=== PATIENT | female | born 1965 | race Caucasian/White ===

== ENCOUNTER 2023-08-17 13:09 | Inpatient (IN) | payer MEDICARE, MEDICAID, SELFPAY ==
--- NOTE | ~2023-08-17 | US_ITS ---
EXAMINATION: US ABDOMEN LIMITED CLINICAL INFORMATION: Increased abdominal distention. Assess for ascites. COMPARISON: None available. TECHNIQUE: Real-time imaging of the abdomen to assess for ascites. FINDINGS: Small volume of abdominal ascites seen more so on the midline pelvis. US/US abdomen limited IMPRESSION: Small volume ascites
--- NOTE | ~2023-08-17 | CT_ITS ---
EXAMINATION: CT ABDOMEN AND PELVIS WITHOUT CONTRAST CLINICAL INFORMATION: Pain COMPARISON: None available. TECHNIQUE: Multidetector volumetric imaging was performed from the superior aspect of the liver through the pubic symphysis. Sagittal and coronal reformatted images were obtained on the technologist's workstation. This CT examination was performed using dose optimization techniques as appropriate, variously including the following: *Automated exposure control *Adjustment of mA and/or kV according to patient size (this includes techniques or standardized protocols for targeted exams where dose is matched to indication/reason for exam; i.e. extremities or head) *Use of iterative reconstruction technique DLP: 398 mGy-cm FINDINGS: LUNG BASES: The visualized lung bases are unremarkable. LIVER, GALLBLADDER, AND BILIARY TREE: Enlarged fatty liver. No focal liver lesion. Normal-appearing gallbladder. No intrahepatic biliary duct dilatation. The common bile duct is dilated measuring 1.2 cm. No stone seen by CT. PANCREAS: Unremarkable. SPLEEN: Unremarkable. ADRENAL GLANDS: Unremarkable. KIDNEYS AND URETERS: The kidneys are normal in size, shape, and attenuation. No hydronephrosis, hydroureter, or calculi seen. No perinephric stranding. BLADDER: Not optimally distended. GASTROINTESTINAL TRACT: Postsurgical changes to the distal colon with surgical staple line. The small and large bowel are otherwise unremarkable. The appendix is not seen. No ascites or free air. Normal stomach. ABDOMINAL WALL: Postsurgical changes. LYMPH NODES: Normal. VASCULAR: Unremarkable. PELVIC VISCERA: The uterus has been removed. No pelvic mass. OSSEOUS STRUCTURES: Postsurgical changes to the lower lumbar spine. CT/CT abdomen pelvis wo IV con IMPRESSION: Fatty liver. Normal-appearing gallbladder. Dilated common bile duct measuring 1.2 cm. No gallstone or common bile duct stone seen by CT. Follow-up ultrasound as initial evaluation recommended. Fleischner guidelines were followed.
--- NOTE | ~2023-08-17 | US_ITS ---
EXAMINATION: US RETROPERITONEAL LIMITED (RENAL ONLY) US RENAL DOPPLER CLINICAL INFORMATION: Worsening creatinine. Flank pain. Hypertension.. COMPARISON: CT scan of the abdomen and pelvis dated 08/17/2023. TECHNIQUE: Bilateral renal ultrasound was performed with color Doppler and spectral Doppler assessment of the renal vessels. FINDINGS: RIGHT KIDNEY: 11.5 x 5.1 x 7.3 cm (SAG x AP x TRV). The kidney is normal in size, contour, and echogenicity. Renal cortical thickness is normal. Prominence of the renal pyramids is seen. No calculi or focal parenchymal lesions. No hydronephrosis. Trace perinephric edema noted. With color Doppler imaging and spectral Doppler assessment, patency of the right renal artery and vein is seen. Peak systolic velocities in the right renal artery range between 65.1 cm/s and 50.4 cm/s with normal low resistance flow pattern seen. Resistive indices within segmental upper, mid and lower pole renal arteries range between 0.66 and 0.76. LEFT KIDNEY: 10.8 x 6.3 x 6.2 cm (SAG x AP x TRV). The kidney is normal in size, contour, and echogenicity. Renal cortical thickness is normal. Slight prominence of the renal pyramids is seen. No calculi or focal parenchymal lesions. No hydronephrosis. Trace perinephric edema noted. With color Doppler imaging and spectral Doppler assessment, patency of the left renal artery and vein is seen. Peak systolic velocities in the left renal artery range between 50.1 cm/s and 54.0 cm/s. Normal low resistance flow pattern seen. Resistive indices within segmental upper, mid and lower pole arteries range between 0.67 and 0.78. AORTA: Normal in caliber. In the mid aorta, peak systolic velocities of 89 cm/s are obtained. US/US renal BI IMPRESSION: * No evidence of renal artery stenosis seen. * Bilateral kidneys normal in size and echogenicity with no evidence of hydronephrosis. * Trace bilateral perinephric edema is seen.
--- NOTE | ~2023-08-17 | XR_ITS ---
EXAMINATION: XR CHEST CLINICAL INFORMATION: Shortness of breath COMPARISON: None available. TECHNIQUE: Frontal view of the chest was obtained. FINDINGS: No significant abnormality is noted involving the heart, lungs, mediastinum, bony thorax or soft tissues. XR/XR chest 1V IMPRESSION: Unremarkable examination.
--- NOTE | ~2023-08-17 | MR_ITS ---
EXAMINATION: MR ABDOMEN WITHOUT CONTRAST/MRCP CLINICAL INFORMATION: Liver failure. Dilated common bile duct. COMPARISON: CT scan of the abdomen and pelvis dated 08/17/2023. TECHNIQUE: An MRI scan of the abdomen was performed using multiple imaging sequences and imaging planes. As per the MRCP protocol, heavily T2-weighted 3-D high-resolution MRCP sequences were obtained in the coronal plane along with thin and thick slab coronal images and coronal MIP reconstructions obtained on the technologist workstation under concurrent physician supervision. FINDINGS: LIVER: The liver is mildly enlarged, measuring 19 cm longitudinally. No hepatic steatosis is seen. No focal cystic or solid mass is present. GALLBLADDER/BILIARY TREE: The gallbladder is well distended and appears unremarkable. There is mild intrahepatic ductal dilatation and prominent extrahepatic ductal dilatation. Common hepatic duct measures 1.3 cm in diameter. Proximal common bile duct measures 1.3 cm and tapers smoothly to 0.7 cm in the ampullary region without obstructing stone or mass seen. PANCREAS: The pancreas is normal in appearance. The pancreatic duct is at the upper limits of normal, measuring 0.3 cm in maximal diameter. No significant mass on noncontrast enhanced exam. No surrounding stranding/edema is seen. SPLEEN: Normal size and appearance. Splenic vein patent. ADRENAL GLANDS AND KIDNEYS: Adrenal glands normal. Kidneys bilaterally symmetric in size and function. No focal mass or hydronephrosis. Mild perinephric edema, nonspecific. BOWEL LOOPS: Grossly within normal limits. ABDOMINAL WALL: Micrometallic artifact related to abdominal wall sutures noted in the midline. LYMPHOVASCULAR STRUCTURES: Abdominal aorta normal in caliber. No periaortic collections. No abdominal adenopathy or free fluid collection. BONES: Fusion hardware at the L3-L4 level is seen with resultant dephasing artifact, which obscures assessment. MR/MR MRCP IMPRESSION: * Mild intrahepatic and moderate extrahepatic ductal dilatation is seen without evidence of an obstructing stone or mass. The pancreatic duct is at the upper limits of normal in diameter. * Mild hepatomegaly. * Mild perinephric edema, nonspecific.
--- NOTE | ~2023-08-17 | US_ITS ---
EXAMINATION: US RETROPERITONEAL LIMITED (RENAL ONLY) US RENAL DOPPLER CLINICAL INFORMATION: Worsening creatinine. Flank pain. Hypertension.. COMPARISON: CT scan of the abdomen and pelvis dated 08/17/2023. TECHNIQUE: Bilateral renal ultrasound was performed with color Doppler and spectral Doppler assessment of the renal vessels. FINDINGS: RIGHT KIDNEY: 11.5 x 5.1 x 7.3 cm (SAG x AP x TRV). The kidney is normal in size, contour, and echogenicity. Renal cortical thickness is normal. Prominence of the renal pyramids is seen. No calculi or focal parenchymal lesions. No hydronephrosis. Trace perinephric edema noted. With color Doppler imaging and spectral Doppler assessment, patency of the right renal artery and vein is seen. Peak systolic velocities in the right renal artery range between 65.1 cm/s and 50.4 cm/s with normal low resistance flow pattern seen. Resistive indices within segmental upper, mid and lower pole renal arteries range between 0.66 and 0.76. LEFT KIDNEY: 10.8 x 6.3 x 6.2 cm (SAG x AP x TRV). The kidney is normal in size, contour, and echogenicity. Renal cortical thickness is normal. Slight prominence of the renal pyramids is seen. No calculi or focal parenchymal lesions. No hydronephrosis. Trace perinephric edema noted. With color Doppler imaging and spectral Doppler assessment, patency of the left renal artery and vein is seen. Peak systolic velocities in the left renal artery range between 50.1 cm/s and 54.0 cm/s. Normal low resistance flow pattern seen. Resistive indices within segmental upper, mid and lower pole arteries range between 0.67 and 0.78. AORTA: Normal in caliber. In the mid aorta, peak systolic velocities of 89 cm/s are obtained. US/US renal doppler IMPRESSION: * No evidence of renal artery stenosis seen. * Bilateral kidneys normal in size and echogenicity with no evidence of hydronephrosis. * Trace bilateral perinephric edema is seen.
[2023-08-17 13:58] VITALS: BP 161/107; PULSE 90; RESP 16; TEMP 36.6; O2SAT 97; BMI 20.2
--- NOTE | 2023-08-17 13:58 | ED.ABDPAIN ---
HPI - Abdominal Pain General Chief Complaint: General Medical Stated Complaint: upper abd pain, headaches Time Seen by Provider: 08/17/23 16:39 Source: patient, RN notes reviewed and old records reviewed Mode of arrival: ambulatory Limitations: no limitations History of Present Illness HPI narrative: 58-year-old female presents for evaluation abdominal pain. She reports she has had abdominal pain on and off for the last 3 days. She is nausea and vomiting as well. She complains of shortness of breath with inspiration. She reports her doctor started her on Crestor in May for high cholesterol She reports some difficulty urinating She reports vomiting over last couple of days as well but does not feel it was excessive Denies any fevers or chills Related Data Allergies Allergy/AdvReac Type Severity Reaction Status Date / Time morphine AdvReac Itching Verified 08/17/23 14:02 Review of Systems Constitutional: Reports body ache(s), Reports chills, Denies fever(s), Reports malaise and Reports weakness Eyes: Denies blurry vision Cardiovascular: Denies chest pain and Denies dyspnea Respiratory: Denies cough and Denies dyspnea Gastrointestinal: Reports abdominal pain, Reports nausea and Reports vomiting Genitourinary: Reports dysuria Musculoskeletal: Reports back pain Skin/Breast: Denies rash Reports weakness PMFSH Social History Social History Smoked in Last 30 Days: No Advance Directives: No Advance Directives Information Provided: No Physical Exam ED Vital Signs: Vital Signs - 24 hr 08/17/23 13:58 08/17/23 16:00 08/17/23 17:55 Temperature 97.8 F 98.3 F 98.0 F Pulse Rate 90 66 72 Respiratory Rate 16 18 18 Blood Pressure 161/107 H 169/100 H 169/129 H Pulse Oximetry 97 100 100 Oxygen Delivery Method Room Air Room Air Room Air BMI result Body Mass Index 20.2 Const General: healthy appearing, comfortable, no acute distress, alert and awake Nutritional Appearance: well nourished Orientation/consciousness: patient oriented x3 HENMT Head: Yes normocephalic and Yes atraumatic Eyes Eyelids: Yes eyelids normal Conjunctivae: conjunctivae normal Sclerae: sclerae normal Corneas: corneas normal Pupils: Equal, round and reactive pupils present EOM: EOMs intact bilaterally Neck Neck: Yes full ROM Resp Effort & Inspection: normal respiratory effort, able to speak in complete sentences and not labored GI Inspection: No distended Palpation (GI): Soft to palpation, not firm, nontender, no guarding and not rigid Skin General skin exam: elasticity normal Neuro General: patient oriented x3 Cranial nerves: Yes Equal, round and reactive pupils present and Yes Bilaterally intact EOM present Cognition (Neuro): normal cognition Extrem Other: Moving all extremities well without any obvious deformities Course Course Course Narrative: RME: 58 year-old F w/ PMHx HLD presenting to the ED c/o SOB & upper abdominal pain radiating to back since Saturday. States feels like she cannot take a deep breath. States her cholesterol was very elevated on outpatient labs. Also reports HTN at home. (PCP is with [facility]) HTNsive in triage EKG, Labs, Viral studies, CXR, UA ordered Full HPI, ROS and PE to be performed by primary ED provider. Medical Decision Making Medical Decision Making [facility] Narrative: 58 old female presents for evaluation of multiple complaints. Her labs are significant for a creatinine of 4.14 which is apparently acute for the patient. She has no history renal issues. She is also found to have a significant transaminitis with an AST of 2881, ALT of 522 and alk phos of 259. The patient's CK was slightly elevated to 166 over not indicative of rhabdomyolysis. Patient's sodium is 130, chloride 95 and CO2 of 20. This is possibly related to acute viral hepatitis or substance abuse. I discussed with Dr. Murphy HECTOR who recommends hepatitis panel and significant IV hydration. CT scan the abdomen pelvis does not show any evidence of obstructive pathology. Neither urinary obstruction or biliary obstruction. The patient is stable bilirubin is normal at 0.7 Differential Diagnosis Differential Diagnoses: The differential diagnosis associated with the presentation includes Viral hepatitis Tylenol overdose Substance abuse Acute renal failure Obstructive uropathy Biliary obstruction Admission/Observation Consideration of admission/observation: Escalation of care including admission/observation considered Patient requires admission for both acute renal failure and elevated liver enzymes Consult Healthcare Provider Management of the patient was discussed with: [employer] Operator (Dr. Arrington, KRUNAL) Lab Data [facility] Lab Attestation statement: I reviewed the patient's lab results. See above 08/17/23 14:20 08/17/23 14:20 Labs: Lab Results 08/17/23 08/17/23 08/17/23 Range/Units 14:20 16:34 17:03 WBC 3.1 L (4.8-10.8) X10*3/uL RBC 3.81 L (4.20-5.50) X10*6/uL Hgb 12.2 (12.0-16.0) g/dl Hct 33.8 L (37.0-47.0) % MCV 88.7 (80.0-98.0) fL MCH 32.0 (27.0-33.0) pg MCHC 36.1 H (31.0-35.0) g/dl RDW 12.7 (11.0-16.0) % Plt Count 153 L (160-400) X10*3/uL MPV 10.3 (9.4-12.3) fL Immature Gran % (Auto) 0.6 H (0.0-0.4) % Neut % (Auto) 66.0 (45-73) % Lymph % (Auto) 22.0 (20-40) % [place] % (Auto) 7.3 (2-11) % Eos % (Auto) 3.5 (0-4) % Baso % (Auto) 0.6 (0-2) % Lymph # (Auto) 0.7 L (1.2-4.9) X10*3/uL [place] # (Auto) 0.2 (0.1-1.2) X10*3/uL Eos # (Auto) 0.1 (0.0-0.4) X10*3/uL Baso # (Auto) 0.0 (0.0-0.2) X10*3/uL Abs Immat Gran (auto) 0.02 (0.00-0.03) X10*3/uL Absolute Neuts (auto) 2.1 (2.0-8.3) x10*3/uL Absolute Nucleated RBC 0.020 H (0.0-0.012) X10*3/uL Nucleated RBC % (auto) 0.6 H (0.0-0.2) /100WBC PT 11.4 (11.1-13.3) SEC INR 0.9 (0.9-1.1) VBG pH 7.30 L (7.32-7.43) VBG pCO2 30 mmHg VBG pO2 35 mmHg VBG HCO3 15 L (22-26) mmol/L VBG O2 Saturation 60.0 % VBG Base Excess -10.0 mmol/L Sodium 130 L (135-145) mmol/L Potassium 4.5 (3.3-5.1) mmol/L Chloride 95 L (96-108) mmol/L Carbon Dioxide 20 L (22-29) mmol/L Anion Gap 20 (12-20) BUN 38 H (9-16) mg/dL Creatinine 4.14 H* (0.5-1.4) mg/dL Estim Creat Clear Calc 13.5 Estimated GFR 11 Random Glucose 90 (60-115) mg/dL Calcium 9.2 (8.4-10.2) mg/dL Magnesium 2.1 (1.6-2.6) mg/dL Total Bilirubin 0.7 (0.0-1.0) mg/dL Direct Bilirubin 0.5 (0.0-0.5) mg/dL AST 2881 H (5-31) U/L ALT 522 H (0-31) U/L Alkaline Phosphatase 259 H (39-117) U/L Total Creatine Kinase 166 H (26-140) U/L Troponin I High Sens 3.7 (<3.5-17.0) ng/L B-Natriuretic Peptide 84 (<100) pg/mL Total Protein 6.7 (6.5-8.0) g/dL Albumin 3.9 (3.5-5.0) g/dL Lipase 53 (8-78) U/L Urine Color Dark Yellow Urine Appearance Turbid Urine pH 5.5 (5.0-9.0) Ur Specific [place] 1.015 (1.005-1.025) Urine Protein 300 (3+) H (Neg-Trace) mg/dL Urine Glucose (UA) 250 H (Negative) mg/dL Urine Ketones Negative (Negative) mg/dL Urine Blood Trace H (Negative) Urine Nitrite Negative (Negative) Ur Leukocyte Esterase Trace H (Negative) Urine RBC 3-5 H (0-2) /HPF Urine WBC 21-50 H (0-5) /HPF Ur Squamous Epith Cells >20 (0-2) /HPF Urine Bacteria 4+ (None Seen) Hyaline Casts 3-5 (0-2) /LPF Acetaminophen (<30) mcg/mL Ethyl Alcohol mg/dL COVID-19 (KAREN) Negative (Negative) COVID-19 Clin Com See Note Influenza Type A (KAYLEE) Negative (Negative) Influenza Type B (KAYLEE) Negative (Negative) Influenza A & B Note See Note 08/17/23 08/17/23 Range/Units 18:35 18:38 WBC (4.8-10.8) X10*3/uL RBC (4.20-5.50) X10*6/uL Hgb (12.0-16.0) g/dl Hct (37.0-47.0) % MCV (80.0-98.0) fL MCH (27.0-33.0) pg MCHC (31.0-35.0) g/dl RDW (11.0-16.0) % Plt Count (160-400) X10*3/uL MPV (9.4-12.3) fL Immature Gran % (Auto) (0.0-0.4) % Neut % (Auto) (45-73) % Lymph % (Auto) (20-40) % [place] % (Auto) (2-11) % Eos % (Auto) (0-4) % Baso % (Auto) (0-2) % Lymph # (Auto) (1.2-4.9) X10*3/uL [place] # (Auto) (0.1-1.2) X10*3/uL Eos # (Auto) (0.0-0.4) X10*3/uL Baso # (Auto) (0.0-0.2) X10*3/uL Abs Immat Gran (auto) (0.00-0.03) X10*3/uL Absolute Neuts (auto) (2.0-8.3) x10*3/uL Absolute Nucleated RBC (0.0-0.012) X10*3/uL Nucleated RBC % (auto) (0.0-0.2) /100WBC PT (11.1-13.3) SEC INR (0.9-1.1) VBG pH (7.32-7.43) VBG pCO2 mmHg VBG pO2 mmHg VBG HCO3 (22-26) mmol/L VBG O2 Saturation % VBG Base Excess mmol/L Sodium (135-145) mmol/L Potassium (3.3-5.1) mmol/L Chloride (96-108) mmol/L Carbon Dioxide (22-29) mmol/L Anion Gap (12-20) BUN (9-16) mg/dL Creatinine (0.5-1.4) mg/dL Estim Creat Clear Calc Estimated GFR Random Glucose (60-115) mg/dL Calcium (8.4-10.2) mg/dL Magnesium (1.6-2.6) mg/dL Total Bilirubin (0.0-1.0) mg/dL Direct Bilirubin (0.0-0.5) mg/dL AST (5-31) U/L ALT (0-31) U/L Alkaline Phosphatase (39-117) U/L Total Creatine Kinase (26-140) U/L Troponin I High Sens (<3.5-17.0) ng/L B-Natriuretic Peptide (<100) pg/mL Total Protein (6.5-8.0) g/dL Albumin (3.5-5.0) g/dL Lipase (8-78) U/L Urine Color Urine Appearance Urine pH (5.0-9.0) Ur Specific [place] (1.005-1.025) Urine Protein (Neg-Trace) mg/dL Urine Glucose (UA) (Negative) mg/dL Urine Ketones (Negative) mg/dL Urine Blood (Negative) Urine Nitrite (Negative) Ur Leukocyte Esterase (Negative) Urine RBC (0-2) /HPF Urine WBC (0-5) /HPF Ur Squamous Epith Cells (0-2) /HPF Urine Bacteria (None Seen) Hyaline Casts (0-2) /LPF Acetaminophen < 3 (<30) mcg/mL Ethyl Alcohol < 10 mg/dL COVID-19 (KAREN) (Negative) COVID-19 Clin Com Influenza Type A (KAYLEE) (Negative) Influenza Type B (KAYLEE) (Negative) Influenza A & B Note Radiology Impression Discussion of test interpretation with radiology: I have reviewed the radiologist's reading. (Fatty liver, normal-appearing gallbladder. Dilated common bile duct. The patient reports that this is chronic) Medications Administered Discontinued Medications Generic Name Dose Route Start Last Admin Trade Name Freq PRN Reason Stop Dose Admin Diphenhydramine HCl 12.5 mg 08/17/23 17:44 08/17/23 17:59 Diphenhydramine Hcl 50 Mg/Ml Vial IVPUSH 08/17/23 17:45 12.5 mg ONCE ONE Administration Sodium Chloride 1,000 mls @ 999 mls/hr 08/17/23 16:45 08/17/23 18:03 Ns IV 08/17/23 17:45 Infused .Q1H1M SERGIO Infusion Sodium Chloride 1,000 mls @ 999 mls/hr 08/17/23 17:45 08/17/23 17:59 Ns IV 08/17/23 18:45 999 mls/hr .Q1H1M SERGIO Administration Metoclopramide HCl 10 mg 08/17/23 17:44 08/17/23 17:59 Metoclopramide Hcl 10 Mg/2 Ml Vial IVPUSH 08/17/23 17:45 10 mg ONCE ONE Administration Discharge Plan Discharge Clinical Impression: Acute renal failure, Transaminitis
--- NOTE | 2023-08-17 13:59 | ECG_ITS ---
Test Reason : UPPER ABD PAIN Blood Pressure : / mmHG Vent. Rate : 074 BPM Atrial Rate : 074 BPM P-R Int : 112 ms QRS Dur : 078 ms QT Int : 408 ms P-R-T Axes : 076 016 031 degrees QTc Int : 452 ms Normal sinus rhythm Normal ECG No previous ECGs available Referred By: Tiffanie Torrez Electronically Signed By:Warren Anglin
[2023-08-17 14:27] LABS: MANUAL DIFF FLAG NO
[2023-08-17 14:29] LABS: Basophils Percent Auto 0.6 % (0-2); Eosinophils Absolute Auto 0.1 X10*3/uL (0.0-0.4); Eosinophils Percent Auto 3.5 % (0-4); Hematocrit 33.8 % (37.0-47.0); Hemoglobin 12.2 g/dl (12.0-16.0); Imm Gran Abs Auto 0.02 X10*3/uL (0.00-0.03); Imm Gran Pct Auto 0.6 % (0.0-0.4); Lymphocytes Absolute Auto 0.7 X10*3/uL (1.2-4.9); Mean Corpuscular HGB Conc 36.1 g/dl (31.0-35.0); Mean Corpuscular Volume 88.7 fL (80.0-98.0); Mean Platelet Volume 10.3 fL (9.4-12.3); Monocytes Absolute Auto 0.2 X10*3/uL (0.1-1.2); Monocytes Percent Auto 7.3 % (2-11); NRBC Pct Auto 0.6 /100WBC (0.0-0.2); Neutrophils Absolute Auto 2.1 x10*3/uL (2.0-8.3); Platelet Count 153 X10*3/uL (160-400); Red Blood Count 3.81 X10*6/uL (4.20-5.50); Red Cell Distribution Width 12.7 % (11.0-16.0); White Blood Count 3.1 X10*3/uL (4.8-10.8)
[2023-08-17 14:41] LABS: INTERNATIONAL NORM RATIO 0.9 (0.9-1.1); Prothrombin Time 11.4 SEC (11.1-13.3)
[2023-08-17 14:48] LABS: COVID-19 Test Negative (Negative); IDNOW Serial# 152EDE1D
[2023-08-17 14:49] LABS: IDNOW Serial# 08D9AD1C; Influenza A Negative (Negative); Influenza B2 Negative (Negative)
[2023-08-17 14:55] LABS: Alanine Aminotransferase 522 U/L (0-31); Albumin Level 3.9 g/dL (3.5-5.0); Alkaline Phosphatase 259 U/L (39-117); Anion Gap 20 (12-20); Aspartate Amino Transferase 2881 U/L (5-31); B Type Natriuretic Peptide 84 pg/mL (<100); Bilirubin Direct 0.5 mg/dL (0.0-0.5); Bilirubin Total 0.7 mg/dL (0.0-1.0); Blood Urea Nitrogen 38 mg/dL (9-16); Calcium 9.2 mg/dL (8.4-10.2); Carbon Dioxide 20 mmol/L (22-29); Chloride 95 mmol/L (96-108); Creatinine Clr Calc Pharmacy 13.5; Estimated Glomerular Filt Rate 11; Glucose Random 90 mg/dL (60-115); Lipase 53 U/L (8-78); Magnesium 2.1 mg/dL (1.6-2.6); Potassium 4.5 mmol/L (3.3-5.1); Sodium 130 mmol/L (135-145); Total Protein 6.7 g/dL (6.5-8.0)
[2023-08-17 14:57] LABS: Troponin-I High Sensitivity 3.7 ng/L (<3.5-17.0)
[2023-08-17 16:00] VITALS: BP 169/100; PULSE 66; RESP 18; TEMP 36.8; O2SAT 100
--- NOTE | 2023-08-17 16:38 | PC.NURSE ---
Patient admitted with a variety of complaints including pancreas pain, back pain, HTN, feels like she cannot take a full breath, voiding small amounts of urine at a time. Patient resting comfortably on a stretcher at this time
[2023-08-17] MEDS: 0.9 % Sodium Chloride 1,000 ML 999 ML IV ×2 (16:44→17:59)
[2023-08-17 17:00] LABS: Appearance Urine Turbid; Color Urine Dark Yellow; Glucose Urine UA 250 mg/dL (Negative); Leukocyte Esterase Urine Trace (Negative); Nitrite Urine Negative (Negative); PH 5.5 (5.0-9.0); Specific Gravity - Urine 1.015 (1.005-1.025); UMIC TRIGGER UACC YES; Urine Blood Trace (Negative); Urine Ketones Negative (Negative); Urine Protein 300 (3+) mg/dL (Neg-Trace)
[2023-08-17 17:09] LABS: Venous Blood Gas Refer to POC result
[2023-08-17 17:09] LABS: VBG HCO3 15 mmol/L (22-26); VBG pCO2 30 mmHg; VBG pO2 35 mmHg
[2023-08-17 17:28] LABS: Bacteria Urine 4+ (None Seen); Squamous Epithelial Cell Urine >20 /HPF (0-2); UACC Culture Trigger YES; WBC Urine 21-50 /HPF (0-5)
[2023-08-17 17:55] VITALS: BP 169/129; PULSE 72; RESP 18; TEMP 36.7; O2SAT 100
[2023-08-17] MEDS: diphenhydrAMINE HCL 50 MG/ML VIAL 12.5 MG IVPUSH (17:59)
[2023-08-17] MEDS: Metoclopramide HCl 10 MG/2 ML VIAL IVPUSH (17:59)
[2023-08-17 18:56] LABS: Ethanol < 10 mg/dL
[2023-08-17 19:06] LABS: Acetaminophen LAB < 3 mcg/mL (<30)
--- NOTE | 2023-08-17 20:06 | P.HPHOSP_ITS ---
History of Present Illness Date of Service: 08/17/23 Attending physician on admission: Monroe Beltran Chief Complaint: abd pain 58-year-old female with history of hypertension, hypercholesterolemia, hypertriglyceridemia, and chronic low back pain presented to the ED earlier today for evaluation of right upper quadrant/epigastric pain ongoing for 2 days with associated nausea and vomiting. She also states that for the last few months she has been experiencing intermittent diarrhea, aching joints, and headaches which she attributed to the rosuvastatin that she was started on about 5 months ago by PCP due to severely elevated triglyceride levels >1100. She states she tried cutting the dose down to 20 mg daily but continued to experience symptoms so she discontinued the medication about 1 week ago. She states her urine has also been cloudy with decreased urine output for the last several days. Denies any fevers, chills, congestion, melena, hematochezia, dyspnea, chest pain, lightheadedness. She does state that it is difficult to take a deep breath due to abdominal pain. She reports only occasional alcohol use and denies any current or prior history of drug use. On arrival, patient has been hypertensive to 169/129, vitals otherwise normal. There is a leukocytosis of 3.1. Creatinine 4.14, baseline 0.7. BUN 38. Sodium 130, chloride 95, CO2 20, electrolytes otherwise normal. AST 2881, ALT 522, alkaline phosphatase 259. Total CK 166. Troponin 3.7, BNP 84. Lipase 53. VBG showed pH 7.30, pCO2 30, bicarb 15. Urinalysis with trace leukocytes, negative nitrites, trace blood, 3+ protein, positive urinary sediment, 4+ bacteria. Acetaminophen level below detectable limits. Ethyl alcohol level below detectable limits. Hepatitis panel pending. Negative for COVID-19 and influenza. Chest x-ray unremarkable. CT abdomen/pelvis shows fatty liver and normal-appearing gallbladder. There is dilated CBD measuring 1.2 cm but no gallstones or common bile duct stone seen on CT. In the ED, has been given Reglan, Benadryl, and 2 L IV NS. Review of Systems 2 Review of Systems: General: No fevers, malaise, unintentional weight loss HEENT: No blurred vision, diplopia. No sore throat, nasal congestion, rhinorrhea, sinus pain, ear pain Cardiovascular: No chest pain, palpitations, or leg edema Respiratory: No shortness of breath, wheezing, cough GI: +abd pain, +nausea, +vomiting. +constipation. No constipation, melena, hematochezia : +cloudy urine, +decreased urine output. No dysuria, hematuria, increased urinary frequency MSK: No myalgia, back pain Neuro: No headaches, weakness, paresthesias Skin: No rashes or lesions [facility] Medical History (Updated 08/17/23 @ 20:33 by CHUN Chan) Chronic low back pain Hypertriglyceridemia Hyperlipidemia HTN (hypertension) Social History Smoked in Last 30 Days: No Advance Directives: No Advance Directives Information Provided: No Meds Allergies Allergy/AdvReac Type Severity Reaction Status Date / Time morphine AdvReac Itching Verified 08/17/23 14:02 Active Medications: Current Medications Acetaminophen (Acetaminophen 325 Mg Tablet) 650 mg PO Q6H PRN PRN Reason: Pain, Mild (Pain Scale 1-3) Heparin Sodium (Porcine) (Heparin Sodium,Porcine 5,000 Unit/Ml Vial) 5,000 unit SUBCUT Q12H SERGIO Ondansetron HCl (Ondansetron Hcl 4 Mg/2 Ml Vial) 4 mg IVPUSH Q8H PRN PRN Reason: Nausea and Vomiting Senna (Sennosides 8.6 Mg Tablet) 17.2 mg PO BEDTIME PRN PRN Reason: Constipation Sodium Chloride (0.9 % Sodium Chloride Flush 3 Ml Syringe) 3 ml IVFLUSH QSHIFT SERGIO Physical Exam 2 Vital Signs and Narrative: Vital Signs: Last Vital Signs Temp 98.0 F 08/17/23 17:55 Pulse 72 08/17/23 17:55 Resp 18 08/17/23 17:55 BP 169/129 H 08/17/23 17:55 Pulse Ox 100 08/17/23 17:55 O2 Del Method Room Air 08/17/23 17:55 BMI result Body Mass Index 20.2 Constitutional - Awake and Alert, No apparent distress Eyes - PERRLA, EOMI Cardiovascular - S1S2, RRR, No edema Respiratory - Normal lung expansion, Normal respiratory effort, No respiratory distress, CTA bilaterally Gastrointestinal - Moderate RUQ ttp, negative garcia sign, ND; +BS; No rebound or guarding Extremities - no calf tenderness bilaterally, no swelling Skin - Warm/Dry Neurological - Alert & oriented x3 Psychological - Appropriate affect Results Labs 08/17/23 14:20 08/17/23 14:20 Labs: Laboratory Results - last 24 hr 08/17/23 08/17/23 08/17/23 14:20 16:34 17:03 MCV 88.7 MCH 32.0 MCHC 36.1 H RDW 12.7 Plt Count 153 L MPV 10.3 Immature Gran % (Auto) 0.6 H Neut % (Auto) 66.0 Lymph % (Auto) 22.0 [place] % (Auto) 7.3 Eos % (Auto) 3.5 Baso % (Auto) 0.6 Lymph # (Auto) 0.7 L [place] # (Auto) 0.2 Eos # (Auto) 0.1 Baso # (Auto) 0.0 Abs Immat Gran (auto) 0.02 Absolute Neuts (auto) 2.1 Absolute Nucleated RBC 0.020 H Nucleated RBC % (auto) 0.6 H PT 11.4 INR 0.9 VBG pH 7.30 L VBG pCO2 30 VBG pO2 35 VBG HCO3 15 L VBG O2 Saturation 60.0 VBG Base Excess -10.0 Anion Gap 20 Estim Creat Clear Calc 13.5 Estimated GFR 11 Random Glucose 90 Calcium 9.2 Magnesium 2.1 Total Bilirubin 0.7 Direct Bilirubin 0.5 AST 2881 H ALT 522 H Alkaline Phosphatase 259 H Total Creatine Kinase 166 H Troponin I High Sens 3.7 B-Natriuretic Peptide 84 Total Protein 6.7 Albumin 3.9 Lipase 53 Urine Color Dark Yellow Urine Appearance Turbid Urine pH 5.5 Ur Specific [place] 1.015 Urine Protein 300 (3+) H Urine Glucose (UA) 250 H Urine Ketones Negative Urine Blood Trace H Urine Nitrite Negative Ur Leukocyte Esterase Trace H Urine RBC 3-5 H Urine WBC 21-50 H Ur Squamous Epith Cells >20 Urine Bacteria 4+ Hyaline Casts 3-5 Acetaminophen Ethyl Alcohol COVID-19 (KAREN) Negative COVID-19 Clin Com See Note Influenza Type A (KAYLEE) Negative Influenza Type B (KAYLEE) Negative Influenza A & B Note See Note 08/17/23 08/17/23 18:35 18:38 MCV MCH MCHC RDW Plt Count MPV Immature Gran % (Auto) Neut % (Auto) Lymph % (Auto) [place] % (Auto) Eos % (Auto) Baso % (Auto) Lymph # (Auto) [place] # (Auto) Eos # (Auto) Baso # (Auto) Abs Immat Gran (auto) Absolute Neuts (auto) Absolute Nucleated RBC Nucleated RBC % (auto) PT INR VBG pH VBG pCO2 VBG pO2 VBG HCO3 VBG O2 Saturation VBG Base Excess Anion Gap Estim Creat Clear Calc Estimated GFR Random Glucose Calcium Magnesium Total Bilirubin Direct Bilirubin AST ALT Alkaline Phosphatase Total Creatine Kinase Troponin I High Sens B-Natriuretic Peptide Total Protein Albumin Lipase Urine Color Urine Appearance Urine pH Ur Specific [place] Urine Protein Urine Glucose (UA) Urine Ketones Urine Blood Urine Nitrite Ur Leukocyte Esterase Urine RBC Urine WBC Ur Squamous Epith Cells Urine Bacteria Hyaline Casts Acetaminophen < 3 Ethyl Alcohol < 10 COVID-19 (KAREN) COVID-19 Clin Com Influenza Type A (KAYLEE) Influenza Type B (KAYLEE) Influenza A & B Note Imaging Radiologist's Impressions: Impressions Chest X-Ray 08/17/23 14:40 IMPRESSION: Unremarkable examination. Abdomen/Pelvis CT 08/17/23 16:58 IMPRESSION: Fatty liver. Normal-appearing gallbladder. Dilated common bile duct measuring 1.2 cm. No gallstone or common bile duct stone seen by CT. Follow-up ultrasound as initial evaluation recommended. Fleischner guidelines were followed. Assessment and Plan (1) UTI (urinary tract infection): Status: Acute (2) Transaminitis: Status: Acute (3) Acute renal failure: Status: Acute Plan 58-year-old female with history of hypertension, hypercholesterolemia, hypertriglyceridemia, and chronic low back pain admitted for JOSETTE with UTI #Acute kidney injury -Creat 4.14, baseline 0.7, BUN 38 -continue IVF -avoid nephrotoxins -strict I&O -follow renal function/lytes -consider nephrology consult if not improving # acute UTI -UA with trace leukocytes, negative nitrites, trace blood, positive urinary sediment, 4+ bacteria -IV ceftriaxone (initiated 08/17) -leukopenia 3.1. Follow CBC, cultures # transaminitis -?statin induced, less likely obstructive -Bili WNL, AST 2881, ALT 522 -acetaminophen level undetectable, ethyl alcohol level undetectable, hepatitis panel pending -MRCP ordered given dilated CBD 1.2cm on CT -Hold crestor -GI consult -Follow LFTs #HTN- uncontrolled -add amlodipine 5mg daily -monitor bp #Hyperlipidemia/hypertriglyceridemia -Last triglyceride level at [facility] >1100 -Lipid panel pending -hold crestor due to above DVT prophylaxis-heparin Full code Patient requires inpatient stay at least 2 midnights for management of acute kidney injury with UTI requiring IV fluid resuscitation and IV antibiotics as well as close monitoring of renal function electrolyte levels and expert consultation Quality Stroke Does the patient have a stroke diagnosis?: No VTE Prior VTE?: No VTE Risk Level:: Medical - moderate - high VTE Device Contraindication: Treatment Not Indicated VTE Drug Contraindication: N/A - Med Ordered
[2023-08-17 20:26] LABS: Cholesterol 217 mg/dL (<200); HDL Cholesterol 20 mg/dL (>40); Triglycerides 687 mg/dL (<150)
[2023-08-17] MEDS: amLODIPine Besylate 5 MG TABLET PO (20:41)
[2023-08-17] MEDS: Heparin Sodium,Porcine 5,000 UNIT/ML VIAL 5000 UNIT SUBCUT (20:41)
[2023-08-17] MEDS: cefTRIAXone sodium 1 GM in 0.9 % Sodium Chloride 50 ML IV (20:45)
[2023-08-17] MEDS: 0.9 % Sodium Chloride 1,000 ML 100 ML IVCONT (20:50)
[2023-08-17 21:08] VITALS: BP 151/98; PULSE 76; RESP 18; TEMP 37; O2SAT 97
[2023-08-17] MEDS: HYDROmorphone HCl 0.5 MG/0.5 ML SYRINGE 0.25 MG IVPUSH (23:39)
[2023-08-17 23:41] LABS: Amphetamine Screen Urine Not Detected (Not Detect); Barbiturates, Urine Not Detected (Not Detect); Benzodiazepines Screen Urine Not Detected (Not Detect); Cannabinoid Screen Urine Not Detected (Not Detect); Cocaine Screen Urine Not Detected (Not Detect); Fentanyl, urine Not Detected (Not Detect); Opiate Screen Urine Not Detected (Not Detect); Phencyclidine Screen Urine Not Detected (Not Detect)
[2023-08-18 00:09] VITALS: BP 156/93; PULSE 80; RESP 12; TEMP 37.2; O2SAT 99
[2023-08-18 00:10] LABS: Total Protein Urine Random 292 mg/dL (<12)
[2023-08-18] MEDS: HYDROmorphone HCl 0.5 MG/0.5 ML SYRINGE 0.25 MG IVPUSH ×3 (05:12→18:24)
[2023-08-18 05:26] LABS: MANUAL DIFF FLAG NO
[2023-08-18 05:29] LABS: Basophils Percent Auto 0.6 % (0-2); Eosinophils Absolute Auto 0.1 X10*3/uL (0.0-0.4); Eosinophils Percent Auto 1.5 % (0-4); Hematocrit 32.1 % (37.0-47.0); Hemoglobin 11.3 g/dl (12.0-16.0); Imm Gran Abs Auto 0.02 X10*3/uL (0.00-0.03); Imm Gran Pct Auto 0.6 % (0.0-0.4); Lymphocytes Absolute Auto 0.7 X10*3/uL (1.2-4.9); Lymphocytes Percent Auto 20.7 % (20-40); Mean Corpuscular HGB Conc 35.2 g/dl (31.0-35.0); Mean Corpuscular Hemoglobin 32.1 pg (27.0-33.0); Mean Corpuscular Volume 91.2 fL (80.0-98.0); Mean Platelet Volume 10.3 fL (9.4-12.3); Monocytes Absolute Auto 0.4 X10*3/uL (0.1-1.2); Monocytes Percent Auto 10.9 % (2-11); Neutrophils Absolute Auto 2.2 x10*3/uL (2.0-8.3); Neutrophils Percent Auto 65.7 % (45-73); Platelet Count 118 X10*3/uL (160-400); Red Blood Count 3.52 X10*6/uL (4.20-5.50); Red Cell Distribution Width 12.9 % (11.0-16.0); White Blood Count 3.3 X10*3/uL (4.8-10.8)
[2023-08-18 05:50] LABS: Alanine Aminotransferase 301 U/L (0-31); Albumin Level 3.2 g/dL (3.5-5.0); Alkaline Phosphatase 212 U/L (39-117); Anion Gap 16 (12-20); Aspartate Amino Transferase 1008 U/L (5-31); Bilirubin Direct 0.3 mg/dL (0.0-0.5); Bilirubin Total 0.4 mg/dL (0.0-1.0); Blood Urea Nitrogen 43 mg/dL (9-16); Calcium 8.2 mg/dL (8.4-10.2); Carbon Dioxide 16 mmol/L (22-29); Chloride 99 mmol/L (96-108); Creatinine Clr Calc Pharmacy 10.2; Estimated Glomerular Filt Rate 8; Glucose Random 85 mg/dL (60-115); Potassium 4.9 mmol/L (3.3-5.1); Sodium 126 mmol/L (135-145); Total Protein 5.8 g/dL (6.5-8.0)
[2023-08-18] MEDS: 0.9 % Sodium Chloride 1,000 ML 100 ML IVCONT (07:26)
--- NOTE | 2023-08-18 07:56 | HO.PM.IMPN ---
Subjective Subjective Date of Service: 08/18/23 Interval History: Seen in follow-up for acute kidney injury, UTI, transaminitis Interval history: Reports abdominal distention, pain. No BM x5 days. Denies nausea, vomiting. Is continuing to report cloudy urine, dysuria. No hematuria, urgency. Review of Systems Review of Systems: Yes all other systems are reviewed and are negative Physical Exam Vital Signs: Vital Signs: Last Vital Signs Temp 99 F 08/18/23 00:09 Pulse 80 08/18/23 00:09 Resp 12 08/18/23 00:09 BP 156/93 H 08/18/23 00:09 Pulse Ox 99 08/18/23 00:09 O2 Del Method Room Air 08/18/23 00:09 BMI result Body Mass Index 20.2 Constitutional - Awake and Alert, No apparent distress Eyes - PERRLA, EOMI Cardiovascular - S1S2, RRR, No edema Respiratory - Normal lung expansion, Normal respiratory effort, No respiratory distress, CTA bilaterally Gastrointestinal - Moderate RUQ ttp, negative garcia sign, ND; +BS; No rebound or guarding Extremities - no calf tenderness bilaterally, no swelling Skin - Warm/Dry Neurological - Alert & oriented x3 Psychological - Appropriate affect Objective Data Active Medications Acetaminophen (Acetaminophen 325 Mg Tablet) 650 mg PO Q6H PRN PRN Reason: Pain, Mild (Pain Scale 1-3) Amlodipine Besylate (Amlodipine Besylate 5 Mg Tablet) 5 mg PO DAILY [facility]; Protocol Last Admin: 08/17/23 20:41 Dose: 5 mg Documented By: SHRUTHI Heparin Sodium (Porcine) (Heparin Sodium,Porcine 5,000 Unit/Ml Vial) 5,000 unit SUBCUT Q12H [facility] Last Admin: 08/17/23 20:41 Dose: 5,000 unit Documented By: SHRUTHI Hydromorphone HCl (Hydromorphone Hcl 0.5 Mg/0.5 Ml Syringe) 0.25 mg IVPUSH Q4H PRN; Protocol PRN Reason: Pain, Severe (Pain Scale 7-10) Last Admin: 08/18/23 05:12 Dose: 0.25 mg Documented By: YORDY Ceftriaxone Sodium 1 gm/ (Sodium Chloride) 50 mls @ 100 mls/hr IV Q24H [facility] Last Infusion: 08/17/23 21:15 Dose: Infused Documented By: YORDY Sodium Chloride (Ns) 1,000 mls @ 100 mls/hr IVCONT .Q10H [facility] Last Admin: 08/18/23 07:26 Dose: 100 mls/hr Documented By: YORDY Ondansetron HCl (Ondansetron Hcl 4 Mg/2 Ml Vial) 4 mg IVPUSH Q8H PRN PRN Reason: Nausea and Vomiting Senna (Sennosides 8.6 Mg Tablet) 17.2 mg PO BEDTIME PRN PRN Reason: Constipation Sodium Chloride (0.9 % Sodium Chloride Flush 3 Ml Syringe) 3 ml IVFLUSH QSHIFT [facility] Last Admin: 08/17/23 22:30 Dose: Not Given Documented By: YORDY Non-Admin Reason: IV Running Labs 08/18/23 05:21 08/18/23 05:21 Labs: Laboratory Results - last 24 hr 08/17/23 08/17/23 08/17/23 14:20 16:34 17:03 MCV 88.7 MCH 32.0 MCHC 36.1 H RDW 12.7 Plt Count 153 L MPV 10.3 Immature Gran % (Auto) 0.6 H Neut % (Auto) 66.0 Lymph % (Auto) 22.0 [place] % (Auto) 7.3 Eos % (Auto) 3.5 Baso % (Auto) 0.6 Lymph # (Auto) 0.7 L [place] # (Auto) 0.2 Eos # (Auto) 0.1 Baso # (Auto) 0.0 Abs Immat Gran (auto) 0.02 Absolute Neuts (auto) 2.1 Absolute Nucleated RBC 0.020 H Nucleated RBC % (auto) 0.6 H PT 11.4 INR 0.9 VBG pH 7.30 L VBG pCO2 30 VBG pO2 35 VBG HCO3 15 L VBG O2 Saturation 60.0 VBG Base Excess -10.0 Anion Gap 20 Estim Creat Clear Calc 13.5 Estimated GFR 11 Random Glucose 90 Calcium 9.2 Magnesium 2.1 Total Bilirubin 0.7 Direct Bilirubin 0.5 AST 2881 H ALT 522 H Alkaline Phosphatase 259 H Total Creatine Kinase 166 H Troponin I High Sens 3.7 B-Natriuretic Peptide 84 Total Protein 6.7 Albumin 3.9 Triglycerides 687 H Cholesterol 217 H LDL Cholesterol, Calc TNP HDL Cholesterol 20 L Lipase 53 Urine Color Dark Yellow Urine Appearance Turbid Urine pH 5.5 Ur Specific [place] 1.015 Urine Protein 300 (3+) H Urine Glucose (UA) 250 H Urine Ketones Negative Urine Blood Trace H Urine Nitrite Negative Ur Leukocyte Esterase Trace H Urine RBC 3-5 H Urine WBC 21-50 H Ur Squamous Epith Cells >20 Urine Bacteria 4+ Hyaline Casts 3-5 U Random Total Protein Ur Random Sodium Urine Creatinine Urine Opiates Screen Urine Fentanyl Screen Acetaminophen Ur Barbiturates Screen Ur Phencyclidine Scrn Ur Amphetamines Screen U Benzodiazepines Scrn Urine Cocaine Screen U Marijuana (THC) Screen Ethyl Alcohol COVID-19 (KAREN) Negative COVID-19 Clin Com See Note Influenza Type A (KAYLEE) Negative Influenza Type B (KAYLEE) Negative Influenza A & B Note See Note 08/17/23 08/17/23 08/17/23 18:35 18:38 23:20 MCV MCH MCHC RDW Plt Count MPV Immature Gran % (Auto) Neut % (Auto) Lymph % (Auto) [place] % (Auto) Eos % (Auto) Baso % (Auto) Lymph # (Auto) [place] # (Auto) Eos # (Auto) Baso # (Auto) Abs Immat Gran (auto) Absolute Neuts (auto) Absolute Nucleated RBC Nucleated RBC % (auto) PT INR VBG pH VBG pCO2 VBG pO2 VBG HCO3 VBG O2 Saturation VBG Base Excess Anion Gap Estim Creat Clear Calc Estimated GFR Random Glucose Calcium Magnesium Total Bilirubin Direct Bilirubin AST ALT Alkaline Phosphatase Total Creatine Kinase Troponin I High Sens B-Natriuretic Peptide Total Protein Albumin Triglycerides Cholesterol LDL Cholesterol, Calc HDL Cholesterol Lipase Urine Color Urine Appearance Urine pH Ur Specific [place] Urine Protein Urine Glucose (UA) Urine Ketones Urine Blood Urine Nitrite Ur Leukocyte Esterase Urine RBC Urine WBC Ur Squamous Epith Cells Urine Bacteria Hyaline Casts U Random Total Protein 292 H Ur Random Sodium 85.0 Urine Creatinine 20.00 Urine Opiates Screen Not Detected Urine Fentanyl Screen Not Detected Acetaminophen < 3 Ur Barbiturates Screen Not Detected Ur Phencyclidine Scrn Not Detected Ur Amphetamines Screen Not Detected U Benzodiazepines Scrn Not Detected Urine Cocaine Screen Not Detected U Marijuana (THC) Screen Not Detected Ethyl Alcohol < 10 COVID-19 (KAREN) COVID-19 Clin Com Influenza Type A (KAYLEE) Influenza Type B (KAYLEE) Influenza A & B Note 08/18/23 05:21 MCV 91.2 MCH 32.1 MCHC 35.2 H RDW 12.9 Plt Count 118 L MPV 10.3 Immature Gran % (Auto) 0.6 H Neut % (Auto) 65.7 Lymph % (Auto) 20.7 [place] % (Auto) 10.9 Eos % (Auto) 1.5 Baso % (Auto) 0.6 Lymph # (Auto) 0.7 L [place] # (Auto) 0.4 Eos # (Auto) 0.1 Baso # (Auto) 0.0 Abs Immat Gran (auto) 0.02 Absolute Neuts (auto) 2.2 Absolute Nucleated RBC 0.000 Nucleated RBC % (auto) 0.0 PT INR VBG pH VBG pCO2 VBG pO2 VBG HCO3 VBG O2 Saturation VBG Base Excess Anion Gap 16 Estim Creat Clear Calc 10.2 Estimated GFR 8 Random Glucose 85 Calcium 8.2 L D Magnesium Total Bilirubin 0.4 Direct Bilirubin 0.3 AST 1008 H ALT 301 H Alkaline Phosphatase 212 H Total Creatine Kinase Troponin I High Sens B-Natriuretic Peptide Total Protein 5.8 L Albumin 3.2 L Triglycerides Cholesterol LDL Cholesterol, Calc HDL Cholesterol Lipase Urine Color Urine Appearance Urine pH Ur Specific [place] Urine Protein Urine Glucose (UA) Urine Ketones Urine Blood Urine Nitrite Ur Leukocyte Esterase Urine RBC Urine WBC Ur Squamous Epith Cells Urine Bacteria Hyaline Casts U Random Total Protein Ur Random Sodium Urine Creatinine Urine Opiates Screen Urine Fentanyl Screen Acetaminophen Ur Barbiturates Screen Ur Phencyclidine Scrn Ur Amphetamines Screen U Benzodiazepines Scrn Urine Cocaine Screen U Marijuana (THC) Screen Ethyl Alcohol COVID-19 (KAREN) COVID-19 Clin Com Influenza Type A (KAYLEE) Influenza Type B (KAYLEE) Influenza A & B Note Assessment and Plan (1) UTI (urinary tract infection): Status: Acute (2) Transaminitis: Status: Acute (3) Acute renal failure: Status: Acute Plan 58-year-old female with history of hypertension, hypercholesterolemia, hypertriglyceridemia, and chronic low back pain admitted for JOSETTE with UTI #Acute kidney injury -Creat 4.14-->5.47, etiology unclear at this time -discussed with nephro: Check ANCA, anti glomerular basement membrane, complement C3/C4, double-stranded DNA, immunofixation panel, lupus anticoagulant panel, EDU -continue IVF -avoid nephrotoxins -strict I&O -follow renal function/lytes -nephrology input appreciated, we will continue following # acute UTI -UA with trace leukocytes, negative nitrites, trace blood, positive urinary sediment, 4+ bacteria -IV ceftriaxone (initiated 08/17) -leukopenia improving. Cultures negative thus far # transaminitis- improving -?statin induced, less likely obstructive -AST/ALT trending down -acetaminophen level undetectable, ethyl alcohol level undetectable, hepatitis panel pending -MRCP negative -Hold crestor -GI input appreciated, will continue following -Follow LFTs #HTN- uncontrolled -amlodipine 5mg daily added -monitor bp #Hyperlipidemia/hypertriglyceridemia -Last triglyceride level at [facility] [place] >1100, improved to 660 -Lipid panel pending -hold crestor due to above DVT prophylaxis-heparin Full code Patient requires inpatient stay at least 2 midnights for management of acute kidney injury with UTI requiring IV fluid resuscitation and IV antibiotics as well as close monitoring of renal function electrolyte levels and expert consultation Quality Stroke Does the patient have a stroke diagnosis?: No VTE Prior VTE?: No VTE Risk Level:: Medical - moderate - high VTE Device Contraindication: Treatment Not Indicated VTE Drug Contraindication: N/A - Med Ordered
[2023-08-18 08:04] VITALS: BP 164/102; PULSE 82; RESP 12; TEMP 37.1; O2SAT 97
[2023-08-18] MEDS: amLODIPine Besylate 5 MG TABLET PO (08:21)
[2023-08-18] MEDS: Heparin Sodium,Porcine 5,000 UNIT/ML VIAL 5000 UNIT SUBCUT ×2 (08:21→21:46)
--- NOTE | 2023-08-18 08:38 | PM.EVENT ---
Event Note Date of Service: 08/18/23 Event Note: Thank you for the consult. Case reviewed. Discussed with Georgette Ohara. Investigations pending. Likely ATN but other etiologies for JOSETTE needs to be ruled out. No indication for renal replacement therapy today. Shall closely follow up. Teto Mejía MD
[2023-08-18] MEDS: clonazePAM 0.5 MG TABLET PO ×2 (09:15→21:47)
--- NOTE | 2023-08-18 11:06 | PHA.MEDREC ---
Pharmacy Consult ? Medication Reconciliation Pharmacy has completed the medication reconciliation. spoke with patient to confirm medications. She reports taking 1/2 tabs of the carisoprodol, tramadol, and the clonazepam at a time. She reports that she got her B12 shot on Saturday and admits that she usually forgets to get it every month. She reports taking ibuprofen every day but was told to stop taking it when she arrived here. Patient explained that she stopped taking trazodone about a month ago.
--- NOTE | 2023-08-18 11:47 | CONS_ITS ---
DATE OF SERVICE: 08/18/2023 REFERRING PHYSICIAN: CHUN Chan REASON FOR CONSULTATION: Elevated liver function tests. HISTORY OF PRESENT ILLNESS: The patient is a pleasant 58-year-old woman, who was admitted to the hospital after presenting to the emergency room yesterday with complaints of abdominal pain, nausea, vomiting, shortness of breath, difficulty with urination and headaches. She has no previous history of liver disease, but has been taking a statin for hyperlipidemia. In the emergency department, she was noted to have elevation of her liver function tests with a significant transaminitis (AST 2881, ALT 522) and a mild elevation of her alkaline phosphatase. Bilirubin was normal. Imaging studies were obtained including abdomen and pelvis CT, which was reviewed. This showed a fatty liver but no focal lesion and a normal gallbladder. Common bile duct dilation to 1.2 cm was seen and she is scheduled for an MRI this morning. She was also noted to have a significant elevation of her creatinine and renal consultation has been obtained. Edna denies any history of liver disease. She does not drink alcohol to excess and denies any other drug usage. There is no family history of liver disease. PAST MEDICAL HISTORY: 1. Hyperlipidemia. 2. Hypertension. 3. Back pain. CURRENT MEDICATIONS: Her current medication list is reviewed in the chart. ALLERGIES: MORPHINE. FAMILY HISTORY: This is reviewed with the patient and is noncontributory. SOCIAL HISTORY: There is no current tobacco, alcohol, or substance abuse. REVIEW OF SYSTEMS: SKIN: No pruritus. HEENT: Negative. CARDIOPULMONARY: No shortness of breath or chest pain. GASTROINTESTINAL: As above. GENITOURINARY: Negative. NEUROPSYCHIATRIC: Negative. PHYSICAL EXAMINATION: GENERAL: Shows a pleasant female, lying comfortably in bed, complaining of abdominal pain that is not being controlled well with Dilaudid at a specific dose and interval. VITAL SIGNS: Reviewed in electronic medical record and are stable. SKIN: Anicteric. HEENT: Shows no scleral icterus. NECK: Without lymphadenopathy or thyromegaly. LUNGS: Clear. HEART: Shows regular rate and rhythm. S1, S2. No murmur. ABDOMEN: Soft without focal masses or tenderness. Bowel sounds are present. No organomegaly is noted. EXTREMITIES: Without edema. DIAGNOSTIC DATA: Laboratory data and imaging studies were reviewed. IMPRESSION: Elevated liver function tests with abdominal pain. Her liver function test pattern and elevation is consistent with a primary hepatocellular process and does not likely reflect underlying gallbladder or gallstone disease. She is scheduled for MR imaging and this will help rule out any process such as common duct stones. The etiology for significant elevation of her liver tests is not clear. Her white count was slightly low when she came in, suggestive of possible underlying viral etiology, so an atypical viral hepatitis is possible. Viral studies have been ordered and are pending. She has no history of family liver disease, making hemochromatosis less likely. I would recommend checking autoimmune markers as well as iron studies and these have been ordered. Her liver function tests are significantly improved this morning from yesterday, suggestive of the underlying process resolving. Thanks for asking me to see her. I will follow her in the hospital with you. MD LAUREN Marion/RAYMUNDO / [phone]
[2023-08-18 11:51] VITALS: BP 157/89; PULSE 77; RESP 18; TEMP 36.3; O2SAT 99
[2023-08-18] MEDS: HYDROmorphone HCl 0.5 MG/0.5 ML SYRINGE IVPUSH (12:47)
[2023-08-18 16:00] VITALS: BP 169/92; PULSE 72; RESP 16; TEMP 36.6; O2SAT 99
[2023-08-18] MEDS: oxyCODONE HCl Immed Release 5 MG TABLET PO ×2 (16:19→21:48)
--- NOTE | 2023-08-18 16:20 | MHC.CM.PN ---
PT REPORTS SHE LIVES WITH HER AND IS INDEPENDENT WITH CARE SHE HAS NO SERVICES AND NO DME SHE SAYS HER SISTER IS HER HCP, COPY REQUESTED PCP: KULDEEP SANTIAGO IMM DELIVERED DCP: HOME NO SERVICES TO TRANSPORT
[2023-08-18] MEDS: polyethylene glycoL 3350 17 GM POWD.PACK PO (16:32)
[2023-08-18 19:37] VITALS: BP 136/82; PULSE 73; RESP 19; TEMP 37.1; O2SAT 98
[2023-08-18] MEDS: 0.9 % Sodium Chloride Flush 3 ML SYRINGE IVFLUSH (21:49)
[2023-08-18] MEDS: cefTRIAXone sodium 1 GM in 0.9 % Sodium Chloride 50 ML IV (21:49)
[2023-08-19] MEDS: HYDROmorphone HCl 0.5 MG/0.5 ML SYRINGE 0.25 MG IVPUSH ×2 (02:04→08:17)
[2023-08-19 04:00] VITALS: BP 151/93; PULSE 68; RESP 16; TEMP 36.9; O2SAT 98
[2023-08-19] MEDS: oxyCODONE HCl Immed Release 5 MG TABLET PO ×3 (05:23→20:17)
[2023-08-19 06:17] LABS: MANUAL DIFF FLAG NO
[2023-08-19 06:25] LABS: Basophils Percent Auto 0.3 % (0-2); Eosinophils Absolute Auto 0.1 X10*3/uL (0.0-0.4); Hematocrit 30.5 % (37.0-47.0); Hemoglobin 10.5 g/dl (12.0-16.0); Imm Gran Abs Auto 0.01 X10*3/uL (0.00-0.03); Imm Gran Pct Auto 0.3 % (0.0-0.4); Lymphocytes Absolute Auto 0.9 X10*3/uL (1.2-4.9); Mean Corpuscular HGB Conc 34.4 g/dl (31.0-35.0); Mean Corpuscular Hemoglobin 32.4 pg (27.0-33.0); Mean Corpuscular Volume 94.1 fL (80.0-98.0); Mean Platelet Volume 10.4 fL (9.4-12.3); Monocytes Absolute Auto 0.4 X10*3/uL (0.1-1.2); Monocytes Percent Auto 14.7 % (2-11); Neutrophils Absolute Auto 1.6 x10*3/uL (2.0-8.3); Neutrophils Percent Auto 52.7 % (45-73); Platelet Count 107 X10*3/uL (160-400); Red Blood Count 3.24 X10*6/uL (4.20-5.50); Red Cell Distribution Width 13.1 % (11.0-16.0)
[2023-08-19 06:54] LABS: Alanine Aminotransferase 187 U/L (0-31); Albumin Level 3.2 g/dL (3.5-5.0); Alkaline Phosphatase 169 U/L (39-117); Anion Gap 16 (12-20); Aspartate Amino Transferase 344 U/L (5-31); Bilirubin Direct 0.3 mg/dL (0.0-0.5); Bilirubin Total 0.3 mg/dL (0.0-1.0); Blood Urea Nitrogen 48 mg/dL (9-16); Calcium 8.2 mg/dL (8.4-10.2); Carbon Dioxide 17 mmol/L (22-29); Chloride 100 mmol/L (96-108); Creatinine Clr Calc Pharmacy 8.2; Estimated Glomerular Filt Rate 6; Glucose Random 96 mg/dL (60-115); Iron 69 mcg/dL (30-160); Percent Iron Saturation 33 % (15-50); Potassium 4.5 mmol/L (3.3-5.1); Sodium 128 mmol/L (135-145); Total Iron Binding Capacity 207 mcg/dL (228-428); Total Protein 5.6 g/dL (6.5-8.0); Unsaturated Iron Binding 138 ug/dL
--- NOTE | 2023-08-19 07:19 | P.PNIM_ITS ---
Subjective Subjective Date of Service: 08/19/23 Interval History: Seen in follow-up for acute kidney injury, UTI, transaminitis Interval history: U/s no significant ascites, making good urine 2.2L x 24 hours. Still with abd distension/bloating, suprapubic discomfort, RUQ pain. No n/v Review of Systems Review of Systems: Yes all other systems are reviewed and are negative Physical Exam 2 Vital Signs: Vital Signs: Last Vital Signs Temp 98.4 F 08/19/23 04:00 Pulse 68 08/19/23 04:00 Resp 16 08/19/23 04:00 BP 151/93 H 08/19/23 04:00 Pulse Ox 98 08/19/23 04:00 O2 Del Method Room Air 08/19/23 04:00 BMI result Body Mass Index 20.2 Constitutional - Awake and Alert, No apparent distress Eyes - PERRLA, EOMI Cardiovascular - S1S2, RRR, No edema Respiratory - Normal lung expansion, Normal respiratory effort, No respiratory distress, CTA bilaterally Gastrointestinal - softly distended, ttp RUQ, ttp suprapubic area. +BS; No rebound or guarding Extremities - no calf tenderness bilaterally, no swelling Skin - Warm/Dry Neurological - Alert & oriented x3 Psychological - Appropriate affect Objective Data Active Medications Acetaminophen (Acetaminophen 325 Mg Tablet) 650 mg PO Q6H PRN PRN Reason: Pain, Mild (Pain Scale 1-3) Amlodipine Besylate (Amlodipine Besylate 5 Mg Tablet) 5 mg PO DAILY [facility]; Protocol Last Admin: 08/18/23 08:21 Dose: 5 mg Documented By: SAMMY Carisoprodol (Carisoprodol 350 Mg Tablet) 175 mg PO TID PRN PRN Reason: low back pain Clonazepam (Clonazepam 0.5 Mg Tablet) 0.5 mg PO BID [facility] Last Admin: 08/18/23 21:47 Dose: 0.5 mg Documented By: SHEA Heparin Sodium (Porcine) (Heparin Sodium,Porcine 5,000 Unit/Ml Vial) 5,000 unit SUBCUT Q12H [facility] Last Admin: 08/18/23 21:46 Dose: 5,000 unit Documented By: SHEA Hydromorphone HCl (Hydromorphone Hcl 0.5 Mg/0.5 Ml Syringe) 0.25 mg IVPUSH Q4H PRN; Protocol PRN Reason: Pain, Severe (Pain Scale 7-10) Last Admin: 08/19/23 02:04 Dose: 0.25 mg Documented By: SHEA Ceftriaxone Sodium 1 gm/ (Sodium Chloride) 50 mls @ 100 mls/hr IV Q24H [facility] Last Infusion: 08/18/23 22:20 Dose: Infused Documented By: SHEA Sodium Chloride (Ns) 1,000 mls @ 100 mls/hr IVCONT .Q10H [facility] Last Admin: 08/18/23 17:29 Dose: Not Given Documented By: VANESA Non-Admin Reason: Physician Held Med Ondansetron HCl (Ondansetron Hcl 4 Mg/2 Ml Vial) 4 mg IVPUSH Q8H PRN PRN Reason: Nausea and Vomiting Oxycodone HCl (Oxycodone Hcl Immed Release 5 Mg Tablet) 5 mg PO Q4H PRN PRN Reason: Pain, Moderate(Pain Scale 4-6) Last Admin: 08/19/23 05:23 Dose: 5 mg Documented By: SHEA Polyethylene Glycol (Polyethylene Glycol 3350 17 Gm Powd.Pack) 17 gm PO DAILY [facility] Last Admin: 08/18/23 16:32 Dose: 17 gm Documented By: VANESA Senna (Sennosides 8.6 Mg Tablet) 17.2 mg PO BEDTIME PRN PRN Reason: Constipation Sodium Chloride (0.9 % Sodium Chloride Flush 3 Ml Syringe) 3 ml IVFLUSH QSHIFT [facility] Last Admin: 08/18/23 21:49 Dose: 3 ml Documented By: SHEA Labs 08/19/23 06:11 08/19/23 06:11 Labs: Laboratory Results - last 24 hr 08/19/23 06:11 MCV 94.1 MCH 32.4 MCHC 34.4 RDW 13.1 Plt Count 107 L MPV 10.4 Immature Gran % (Auto) 0.3 Neut % (Auto) 52.7 Lymph % (Auto) 29.0 [place] % (Auto) 14.7 H Eos % (Auto) 3.0 Baso % (Auto) 0.3 Lymph # (Auto) 0.9 L [place] # (Auto) 0.4 Eos # (Auto) 0.1 Baso # (Auto) 0.0 Abs Immat Gran (auto) 0.01 Absolute Neuts (auto) 1.6 L Absolute Nucleated RBC 0.000 Nucleated RBC % (auto) 0.0 Anion Gap 16 Estim Creat Clear Calc 8.2 Estimated GFR 6 Random Glucose 96 Calcium 8.2 L Iron 69 TIBC 207 L % Saturation 33 Unsat Iron Binding 138 Total Bilirubin 0.3 Direct Bilirubin 0.3 AST 344 H ALT 187 H Alkaline Phosphatase 169 H Total Protein 5.6 L Albumin 3.2 L Microbiology Microbiology Results: Microbiology 08/17/23 20:45 Blood Culture - Preliminary Blood - Venous No growth after 24 hours. 08/17/23 20:45 Blood Culture - Preliminary Blood - Venous No growth after 24 hours. 08/17/23 23:20 Urine Culture - Preliminary Urine clean catch - Urine bray top No growth to date. Assessment and Plan (1) UTI (urinary tract infection): Status: Acute (2) Transaminitis: Status: Acute (3) Acute renal failure: Status: Acute Plan 58-year-old female with history of hypertension, hypercholesterolemia, hypertriglyceridemia, and chronic low back pain admitted for JOSETTE with UTI #Acute kidney injury -Creat 4.14-->5.47 -->6.82, etiology unclear at this time but probably ATN per nephro likely due to frequent intermediate card tender ibuprofen use outpt (chronic LBP follows with [facility] pain mgmt). Ibuprofen on hold, renal recovery likely lagging but with polyuria and will likely begin to improve per nephro -no indication for HD at this time -ANCA, anti glomerular basement membrane, complement C3/C4, double-stranded DNA, immunofixation panel, lupus anticoagulant panel, EDU pending -continue IVF @75ml/hr x1L per nephro -avoid nephrotoxins -strict I&O -follow renal function/lytes -nephrology input appreciated, we will continue following #Bacteriuria -Initial UA with trace leukocytes, negative nitrites, trace blood, positive urinary sediment, 4+ bacteria -IV ceftriaxone (initiated 08/17). Discontinued cefuroxime 08/19, urine culture negative -repeat UA given ongoing dysuria not indicative of infection #Acute Pancytopenia -etiology unclear -LDH 327, ferritin 3735 -WBC 3.0, H/H 10.5/30.55, [id number] -ADAMS13 pending, peripheral smear pending -Hem/onc consult #Acute Hyponatremia -likely hypoosmolar 2/2 aggressive IVF -improving with slowed IVF. DC IVF after 1 more liter # transaminitis- improving -?statin induced, MRCP negative for obstructed stone -AST/ALT trending down -acetaminophen level undetectable, ethyl alcohol level undetectable, hepatitis panel pending -Hold crestor -GI input appreciated, will continue following -Follow LFTs #HTN- uncontrolled -amlodipine dc'd. Nifedipine 30mg ER added -monitor bp #Hyperlipidemia/hypertriglyceridemia -Last triglyceride level at [facility] >1100, improved to 660 -Lipid panel pending -hold crestor due to above DVT prophylaxis-hold heparin due to worsening thrombocytopenia. SCP's, ambulation Full code Patient requires inpatient stay at least 2 midnights for management of acute kidney injury and pancytopenia requiring close monitoring of blood count, renal function, electrolytes, and expert consultation to further investigate etiology and guide treatment plan and dispo Quality Stroke Does the patient have a stroke diagnosis?: No VTE Prior VTE?: No VTE Risk Level:: Medical - moderate - high VTE Device Contraindication: Treatment Not Indicated VTE Drug Contraindication: N/A - Med Ordered
[2023-08-19 08:00] VITALS: BP 143/86; PULSE 72; RESP 18; TEMP 36.4; O2SAT 98
[2023-08-19 08:02] LABS: Ferritin 3735 ng/mL (10-250)
[2023-08-19] MEDS: 0.9 % Sodium Chloride Flush 3 ML SYRINGE IVFLUSH (08:17)
[2023-08-19] MEDS: clonazePAM 0.5 MG TABLET PO (09:11)
[2023-08-19] MEDS: NIFEdipine ER 30 MG TAB.ER.24 PO (09:11)
--- NOTE | 2023-08-19 10:09 | PM.CNNEP ---
History of Present Illness Reason for Consult Consult date: 08/19/23 Chief Complaint Chief complaint: uti, josette, liver failure History of Present Illness Narrative: 58-year-old female with chronic low back pain presented to the ED for evaluation of right upper quadrant/epigastric pain ( for 2 days prior to current presentation )with associated nausea and vomiting. For the last few months she has been experiencing intermittent diarrhea, aching joints, and headaches which she attributed to the rosuvastatin that she was started on about 5 months ago by PCP due to severely elevated triglyceride levels >1100. She states she tried cutting the dose down to 20 mg daily but continued to experience symptoms so she discontinued the medication about 1 week ago. She states her urine has also been cloudy with markedly decreased urine output for the last several days prior to presentation. She denies any fevers, chills, congestion, melena, hematochezia, dyspnea, chest pain, lightheadedness. She reports only occasional alcohol use and denies any current or prior history of drug use. On arrival, patient has been hypertensive to 169/129, vitals otherwise normal. There is a leukocytosis of 3.1. Creatinine 4.14, baseline 0.7. BUN 38. Sodium 130, chloride 95, CO2 20, electrolytes otherwise normal. AST 2881, ALT 522, alkaline phosphatase 259. Total CK 166. Troponin 3.7, BNP 84. Lipase 53. VBG showed pH 7.30, pCO2 30, bicarb 15. Urinalysis with trace leukocytes, negative nitrites, trace blood, 3+ protein, positive urinary sediment, 4+ bacteria. Acetaminophen level below detectable limits. Ethyl alcohol level below detectable limits. Negative for COVID-19 and influenza. Chest x-ray unremarkable. CT abdomen/pelvis shows fatty liver and normal-appearing gallbladder. There is dilated CBD measuring 1.2 cm but no gallstones or common bile duct stone seen on CT. In the ED, has been given Reglan, Benadryl, and 2 L IV NS. Her serum creatinine has been getting worse but with remarkably improving UO. Nephrology has been consulted to assist in her clinical care during her current hospital stay. Review of Systems Review of Systems Yes all other systems are reviewed and are negative PMFSH Past Medical History Medical History (Updated 08/19/23 @ 10:14 by Teto Mejía MD) Chronic low back pain Hypertriglyceridemia Hyperlipidemia HTN (hypertension) Social History Social History Household Members: Spouse Housing: Apartment Do you presently have visiting nurse or other home services: No Patient Tobacco Use Status: Never used Tobacco service: No Meds Allergies Allergy/AdvReac Type Severity Reaction Status Date / Time morphine AdvReac Itching Verified 08/17/23 14:02 Active Medications: Current Medications Acetaminophen (Acetaminophen 325 Mg Tablet) 650 mg PO Q6H PRN PRN Reason: Pain, Mild (Pain Scale 1-3) Carisoprodol (Carisoprodol 350 Mg Tablet) 175 mg PO TID PRN PRN Reason: low back pain Clonazepam (Clonazepam 0.5 Mg Tablet) 0.5 mg PO BID PRN PRN Reason: Anxiety Last Admin: 08/19/23 09:11 Dose: 0.5 mg Heparin Sodium (Porcine) (Heparin Sodium,Porcine 5,000 Unit/Ml Vial) 5,000 unit SUBCUT Q12H [facility] Last Admin: 08/19/23 08:12 Dose: Not Given Ceftriaxone Sodium 1 gm/ (Sodium Chloride) 50 mls @ 100 mls/hr IV Q24H [facility] Last Infusion: 08/18/23 22:20 Dose: Infused Sodium Chloride (Ns) 1,000 mls @ 75 mls/hr IVCONT .[id number] [facility] Nifedipine (Nifedipine Er 30 Mg Tab.Er.24) 30 mg PO DAILY [facility]; Protocol Last Admin: 08/19/23 09:11 Dose: 30 mg Ondansetron HCl (Ondansetron Hcl 4 Mg/2 Ml Vial) 4 mg IVPUSH Q8H PRN PRN Reason: Nausea and Vomiting Oxycodone HCl (Oxycodone Hcl Immed Release 5 Mg Tablet) 5 mg PO Q4H PRN PRN Reason: Pain, Moderate(Pain Scale 4-6) Last Admin: 08/19/23 05:23 Dose: 5 mg Polyethylene Glycol (Polyethylene Glycol 3350 17 Gm Powd.Pack) 17 gm PO DAILY [facility] Last Admin: 08/19/23 08:56 Dose: Not Given Senna (Sennosides 8.6 Mg Tablet) 17.2 mg PO BEDTIME PRN PRN Reason: Constipation Sodium Chloride (0.9 % Sodium Chloride Flush 3 Ml Syringe) 3 ml IVFLUSH QSHIFT [facility] Last Admin: 08/19/23 08:17 Dose: 3 ml Tramadol HCl (Tramadol Hcl 50 Mg Tablet) 25 mg PO QID [facility] Home Medications Medication Instructions Recorded Confirmed Last Taken Type carisoprodol 350 mg tablet 175 mg PO TID PRN low back pain 08/17/23 08/18/23 Unknown History tramadol 50 mg tablet 25 mg PO TID-QID 08/17/23 08/18/23 Unknown History clonazepam 0.5 mg tablet 0.25 mg PO TID PRN anxiety 08/18/23 08/18/23 Unknown History cyanocobalamin (vitamin B-12) 1,000 mcg IM QMONTH 08/18/23 08/18/23 08/17/23 History 1,000 mcg/mL injection solution ibuprofen 200 mg tablet 400 mg PO BID-TID 08/18/23 08/18/23 Unknown History Physical Exam Vital Signs: Last Vital Signs Temp 97.5 F 08/19/23 08:00 Pulse 72 08/19/23 08:00 Resp 18 08/19/23 08:00 BP 143/86 H 08/19/23 08:00 Pulse Ox 98 08/19/23 08:00 O2 Del Method Room Air 08/19/23 08:00 BMI result Body Mass Index 20.2 Const General: comfortable and no acute distress Orientation/consciousness: patient oriented x3 HEENT Head: Yes normocephalic Mouth: Normal oral and palatal mucosa present Eyes EOM: EOMs intact bilaterally Neck Neck: Yes supple Resp Auscultation: clear to auscultation bilaterally Cardio Jugular venous distension: no JVD Rate: regular rate GI Palpation (GI): Soft to palpation Auscultation: normal bowel sounds General: Yes no CVA tenderness Back/Spine/Pelvis Back: no CVA tenderness Skin General skin exam: no rashes or lesions noted Neuro General: patient oriented x3 and moves all extremities Extrem General: Yes no pedal edema Results Lab Results 08/19/23 06:11 08/19/23 06:11 Lab results: Chemistry 08/17/23 08/18/23 08/19/23 14:20 05:21 06:11 Sodium 130 L 126 L 128 L Potassium 4.5 4.9 4.5 Carbon Dioxide 20 L 16 L 17 L BUN 38 H 43 H 48 H Creatinine 4.14 H* 5.47 H* 6.82 H* Calcium 9.2 8.2 L D 8.2 L Hematology 08/17/23 08/18/23 08/19/23 14:20 05:21 06:11 WBC 3.1 L 3.3 L 3.0 L Hgb 12.2 11.3 L 10.5 L Plt Count 153 L 118 L 107 L Urinalysis 08/17/23 16:34 Urine Color Dark Yellow Urine Appearance Turbid Urine pH 5.5 Ur Specific [place] 1.015 Urine Protein 300 (3+) H Urine Glucose (UA) 250 H Urine Ketones Negative Urine Blood Trace H Urine Nitrite Negative Ur Leukocyte Esterase Trace H Urine RBC 3-5 H Urine WBC 21-50 H Ur Squamous Epith Cells >20 Hyaline Casts 3-5 Urine Studies 08/17/23 23:20 Urine Creatinine 20.00 Assessment and Plan (1) Acute renal failure: Qualifiers: Acute renal failure type: unspecified Qualified Code(s): N17.9 - Acute kidney failure, unspecified Status: Acute Plan JOSETTE likely due to tubular injury DDX broad; W/U in progress No obstruction by imaging Urine output very good No indication for HD now Needs Heme review given thrombocytopenia Peripheral smear to R/O schistocytes C/W current mangement for now Procedures Date of Service Date of Service: 08/19/23
[2023-08-19 10:13] LABS: Lactate Dehydrogenase 327 U/L (122-220)
[2023-08-19 10:14] LABS: Complement C3 101 mg/dL (83-193)
[2023-08-19] MEDS: 0.9 % Sodium Chloride 1,000 ML 75 ML IVCONT ×2 (10:31→23:39)
[2023-08-19 11:00] LABS: Eosinophils Absolute Manual 0.1 X10*3/uL (0.0-0.4); Eosinophils Percent Manual 4 % (0-4); Lymphocytes Absolute Manual 0.9 X10*3/uL (1.2-4.9); Lymphocytes Percent Manual 31 % (20-40); Monocytes Absolute Manual 0.4 X10*3/uL (0.1-1.2); Monocytes Percent Manual 12 % (2-11); Neutrophils Percent Manual 53 % (45-73)
[2023-08-19 11:02] LABS: Band Neutrophils Percent 0 % (3-5); Neutrophils Absolute Manual 1.6 X10*3/uL (2.0-8.3); Platelet Estimate DECREASED (NORMAL); Platelet Morphology Comment NORMAL; RBC Morphology NORMAL
--- NOTE | 2023-08-19 11:17 | P.PNGI_ITS ---
Subjective Subjective Date of Service: 08/19/23 Critical Care Time (minutes): 0 Comment: no nausea or vomiting Physical Exam 2 Vital Signs: Vital Signs: Last Vital Signs Temp 97.5 F 08/19/23 08:00 Pulse 72 08/19/23 08:00 Resp 18 08/19/23 08:00 BP 143/86 H 08/19/23 08:00 Pulse Ox 98 08/19/23 08:00 O2 Del Method Room Air 08/19/23 08:00 BMI result Body Mass Index 20.2 GI: Other: abdomen is soft and nontender Objective Data Labs 08/21/23 05:10 08/21/23 05:10 Microbiology Microbiology Results: Microbiology 08/17/23 23:20 Urine clean catch - Urine bray top Urine Culture - Final No growth. 08/17/23 20:45 Blood - Venous Blood Culture - Preliminary No growth after 24 hours. 08/17/23 20:45 Blood - Venous Blood Culture - Preliminary No growth after 24 hours. Procedures Date of Service Date of Service: 08/21/23 Progress Note: A&P Assessment and plan (1) Transaminitis: Status: Acute Assessment and Plan: see below Plan lfts better metabolic w/u pending Time Spent With Patient Time: Total time managing care of this patient today ____ minutes. Quality Stroke Does the patient have a stroke diagnosis?: No VTE Prior VTE?: No VTE Risk Level:: Medical - moderate - high VTE Device Contraindication: Treatment Not Indicated VTE Drug Contraindication: N/A - Med Ordered
[2023-08-19] MEDS: traMADoL HCL 50 MG TABLET 25 MG PO ×3 (13:35→22:21)
[2023-08-19 14:49] LABS: EOS Counted 0 CELLS; EOS QC POS YES; EOS Stain Quality OK YES; WBC, Counted 100 CELLS
[2023-08-19 15:23] VITALS: BP 140/90; PULSE 77; RESP 17; TEMP 36; O2SAT 98
[2023-08-19] MEDS: carisoprodoL 350 MG TABLET 175 MG PO ×2 (15:29→22:22)
[2023-08-19 15:45] LABS: Appearance Urine Clear; Color Urine Yellow; Glucose Urine UA Negative (Negative); Leukocyte Esterase Urine Negative (Negative); Nitrite Urine Negative (Negative); PH 5.5 (5.0-9.0); Specific Gravity - Urine <= 1.005 (1.005-1.025); UMIC TRIGGER UACC YES; Urine Blood Trace (Negative); Urine Ketones Negative (Negative); Urine Protein Trace mg/dL (Neg-Trace)
[2023-08-19 15:47] LABS: Bacteria Urine None Seen (None Seen); Hyaline Casts Urine 0-2 /LPF (0-2); RBC Urine 0-2 /HPF (0-2); Squamous Epithelial Cell Urine 0-2 /HPF (0-2); WBC Urine 0-5 /HPF (0-5)
[2023-08-19 19:55] VITALS: BP 154/86; PULSE 75; RESP 18; TEMP 36.6; O2SAT 98
[2023-08-19 22:58] LABS: Anti Glomerular Basement Memb <1.0 AI; Myeloperoxidase Antibody <1.0 AI; Proteinase 3 PR3 Antibodies <1.0 AI
[2023-08-20] MEDS: oxyCODONE HCl Immed Release 5 MG TABLET PO ×5 (01:15→20:49)
[2023-08-20 03:14] LABS: HBS Num1 0.48 mIU/mL (0-7.99); HBc Num1 0.07 S/CO (0.00-0.79); HBsAGNum1 0.26 S/CO (0.00-0.99); Hepatitis A Antibody IgM 0.17 Index (0-0.79); Hepatitis B Core Antibody Nonreactive (Nonreactive); Hepatitis B Surface Antigen Negative (Negative); ~HepC Num1 0.09 S/CO (0.00-0.79); ~Hepatitis A Antibody IgM Nonreactive (Nonreactive); ~Hepatitis B Surface Antibody NONREACTIVE (Nonreactive); ~Hepatitis C Antibody Nonreactive (Nonreactive)
[2023-08-20 03:23] VITALS: BP 137/83; PULSE 68; RESP 18; TEMP 36.4; O2SAT 97
--- NOTE | 2023-08-20 05:54 | PM.EVENT ---
Event Note Date of Service: 08/20/23 Event Note: Contacted last night to notify patient was c/o worsening abdominal bloating and has trouble taking deep breaths due to this. She has been tracking her urine output closely and had some questions about the causes of her current acute issues. She is aware of her significant renal failure and the possibility of getting HD if the renal function continues to worsen. Abdomen exam: Distended. Increased bowel sounds. (+) fluid wave. I did review her chart. It seems she has pancytopenia and elevated AST and ALT, as well as Alk phos. Total CK was slightly elevated on admission. Bilirubin is normal and MRCP showed no evidence of an obstructive stone obstructing stone. Hepatitis profile is negative. Significant hyponatremia persists. I informed patient that she has low WBC, hemoglobin and platelets and evaluation by hematology is pending, that her abdominal distention is likely worsening accumulation of fluid (ascites) and there some workup that is still pending (such lupus and immunoglobulin workup). If this persists or gets worse she might need a paracentesis. Patient was also asking about urine culture -this showed no growth. Urinalysis was repeated yesterday and not showing RBC or WBC, protenuria better but persists. Time Spent With Patient Time: Total time managing care of this patient today ____ minutes.
[2023-08-20 06:59] LABS: MANUAL DIFF FLAG NO
[2023-08-20 07:08] LABS: Basophils Percent Auto 0.3 % (0-2); Eosinophils Absolute Auto 0.1 X10*3/uL (0.0-0.4); Eosinophils Percent Auto 3.9 % (0-4); Hematocrit 30.3 % (37.0-47.0); Hemoglobin 10.4 g/dl (12.0-16.0); Imm Gran Abs Auto 0.02 X10*3/uL (0.00-0.03); Imm Gran Pct Auto 0.6 % (0.0-0.4); Lymphocytes Absolute Auto 0.8 X10*3/uL (1.2-4.9); Lymphocytes Percent Auto 21.2 % (20-40); Mean Corpuscular HGB Conc 34.3 g/dl (31.0-35.0); Mean Corpuscular Hemoglobin 32.6 pg (27.0-33.0); Mean Platelet Volume 11.2 fL (9.4-12.3); Monocytes Absolute Auto 0.5 X10*3/uL (0.1-1.2); Monocytes Percent Auto 14.6 % (2-11); Neutrophils Absolute Auto 2.2 x10*3/uL (2.0-8.3); Neutrophils Percent Auto 59.4 % (45-73); Red Blood Count 3.19 X10*6/uL (4.20-5.50); Red Cell Distribution Width 13.2 % (11.0-16.0); White Blood Count 3.6 X10*3/uL (4.8-10.8)
[2023-08-20 07:09] LABS: Platelet Count 97 X10*3/uL (160-400)
[2023-08-20 07:15] VITALS: BP 145/86; PULSE 65; RESP 18; TEMP 36; O2SAT 97
[2023-08-20 07:28] LABS: Alanine Aminotransferase 132 U/L (0-31); Albumin Level 3.1 g/dL (3.5-5.0); Alkaline Phosphatase 152 U/L (39-117); Anion Gap 16 (12-20); Aspartate Amino Transferase 148 U/L (5-31); Bilirubin Total 0.3 mg/dL (0.0-1.0); Blood Urea Nitrogen 45 mg/dL (9-16); Calcium 8.3 mg/dL (8.4-10.2); Carbon Dioxide 16 mmol/L (22-29); Chloride 102 mmol/L (96-108); Estimated Glomerular Filt Rate 6; Glucose Random 94 mg/dL (60-115); Potassium 4.6 mmol/L (3.3-5.1); Sodium 129 mmol/L (135-145); Total Protein 5.6 g/dL (6.5-8.0); Uric Acid 11.3 mg/dL (2.4-5.7)
[2023-08-20] MEDS: NIFEdipine ER 30 MG TAB.ER.24 PO (07:50)
[2023-08-20] MEDS: traMADoL HCL 50 MG TABLET 25 MG PO ×4 (07:50→23:33)
[2023-08-20 08:01] LABS: Folate 14.3 ng/mL (> or = 4.0); Vitamin B12 > 2000 pg/mL (200-900)
[2023-08-20] MEDS: polyethylene glycoL 3350 17 GM POWD.PACK PO (09:31)
[2023-08-20] MEDS: carisoprodoL 350 MG TABLET 175 MG PO ×2 (09:31→23:37)
--- NOTE | 2023-08-20 12:21 | HO.PM.IMPN ---
Subjective Subjective Date of Service: 08/20/23 Interval History: acute kidney injury, UTI, transaminitis Review of Systems overnight events noted-abd bloating /distension seems improved , denies any sob or pain Physical Exam Vital Signs: Vital Signs: Last Vital Signs Temp 96.8 F 08/20/23 07:15 Pulse 65 08/20/23 07:15 Resp 18 08/20/23 07:15 BP 145/86 H 08/20/23 07:15 Pulse Ox 97 08/20/23 07:15 O2 Del Method Room Air 08/20/23 07:15 BMI result Body Mass Index 20.2 Appearance: Alert.? Oriented X3.? cvs: rrr, [id number]. res: clear to auscultation ,no rhonchii or wheezing abd: no rebound or guarding ,nt, bs present. ext pulses present , no cyanosis . neuro: axo3 , nonfocal. Objective Data Active Medications Acetaminophen (Acetaminophen 325 Mg Tablet) 650 mg PO Q6H PRN PRN Reason: Pain, Mild (Pain Scale 1-3) Carisoprodol (Carisoprodol 350 Mg Tablet) 175 mg PO TID PRN PRN Reason: low back pain Last Admin: 08/20/23 09:31 Dose: 175 mg Documented By: PETRA Clonazepam (Clonazepam 0.5 Mg Tablet) 0.5 mg PO BID PRN PRN Reason: Anxiety Last Admin: 08/19/23 09:11 Dose: 0.5 mg Documented By: VANESA Sodium Chloride (Ns) 1,000 mls @ 75 mls/hr IVCONT .[id number] [facility] Last Admin: 08/19/23 23:39 Dose: 75 mls/hr Documented By: LYSZ Nifedipine (Nifedipine Er 30 Mg Tab.Er.24) 30 mg PO DAILY [facility]; Protocol Last Admin: 08/20/23 07:50 Dose: 30 mg Documented By: PETRA Ondansetron HCl (Ondansetron Hcl 4 Mg/2 Ml Vial) 4 mg IVPUSH Q8H PRN PRN Reason: Nausea and Vomiting Oxycodone HCl (Oxycodone Hcl Immed Release 5 Mg Tablet) 5 mg PO Q4H PRN PRN Reason: Pain, Moderate(Pain Scale 4-6) Last Admin: 08/20/23 10:03 Dose: 5 mg Documented By: KHALIF Polyethylene Glycol (Polyethylene Glycol 3350 17 Gm Powd.Pack) 17 gm PO DAILY [facility] Last Admin: 08/20/23 09:31 Dose: 17 gm Documented By: PETRA Senna (Sennosides 8.6 Mg Tablet) 17.2 mg PO BEDTIME PRN PRN Reason: Constipation Sodium Chloride (0.9 % Sodium Chloride Flush 3 Ml Syringe) 3 ml IVFLUSH QSHIFT [facility] Last Admin: 08/20/23 07:00 Dose: Not Given Documented By: PETRA Non-Admin Reason: IV Running Tramadol HCl (Tramadol Hcl 50 Mg Tablet) 25 mg PO QID [facility] Last Admin: 08/20/23 07:50 Dose: 25 mg Documented By: PETRA Labs 08/20/23 05:33 08/20/23 05:33 Labs: Laboratory Results - last 24 hr 08/17/23 08/18/23 08/18/23 16:59 08:52 Unknown MCV MCH MCHC RDW Plt Count MPV Immature Gran % (Auto) Neut % (Auto) Lymph % (Auto) [place] % (Auto) Eos % (Auto) Baso % (Auto) Lymph # (Auto) [place] # (Auto) Eos # (Auto) Baso # (Auto) Abs Immat Gran (auto) Absolute Neuts (auto) Absolute Nucleated RBC Nucleated RBC % (auto) Anion Gap Estim Creat Clear Calc Estimated GFR Random Glucose Uric Acid Calcium Total Bilirubin AST ALT Alkaline Phosphatase Total Creatine Kinase Total Protein Albumin Vitamin B12 Folate Urine Color Urine Appearance Urine pH Ur Specific [place] Urine Protein Urine Glucose (UA) Urine Ketones Urine Blood Urine Nitrite Ur Leukocyte Esterase Urine RBC Urine WBC Ur Squamous Epith Cells Urine Bacteria Hyaline Casts Urine Eosinophils % Urine Immunofixation Proteinase 3 (PR3) Ab <1.0 Myeloperoxidase Ab <1.0 Glomerular Base Memb Ab <1.0 Hepatitis A IgM Ab Nonreactive Hep Bs Antigen Negative Hep Bs Antibody NONREACTIVE Hep B Core Total Ab Nonreactive Hepatitis C Ab (EIA) Nonreactive 08/19/23 08/19/23 08/20/23 12:19 15:36 05:33 MCV 95.0 MCH 32.6 MCHC 34.3 RDW 13.2 Plt Count 97 L MPV 11.2 Immature Gran % (Auto) 0.6 H Neut % (Auto) 59.4 Lymph % (Auto) 21.2 [place] % (Auto) 14.6 H Eos % (Auto) 3.9 Baso % (Auto) 0.3 Lymph # (Auto) 0.8 L [place] # (Auto) 0.5 Eos # (Auto) 0.1 Baso # (Auto) 0.0 Abs Immat Gran (auto) 0.02 Absolute Neuts (auto) 2.2 Absolute Nucleated RBC 0.000 Nucleated RBC % (auto) 0.0 Anion Gap 16 Estim Creat Clear Calc 8.0 Estimated GFR 6 Random Glucose 94 Uric Acid 11.3 H Calcium 8.3 L Total Bilirubin 0.3 AST 148 H ALT 132 H Alkaline Phosphatase 152 H Total Creatine Kinase 52 Total Protein 5.6 L Albumin 3.1 L Vitamin B12 > 2000 H Folate 14.3 Urine Color Yellow Urine Appearance Clear Urine pH 5.5 Ur Specific [place] <= 1.005 Urine Protein Trace Urine Glucose (UA) Negative Urine Ketones Negative Urine Blood Trace H Urine Nitrite Negative Ur Leukocyte Esterase Negative Urine RBC 0-2 Urine WBC 0-5 Ur Squamous Epith Cells 0-2 Urine Bacteria None Seen Hyaline Casts 0-2 Urine Eosinophils % 0.0 Urine Immunofixation Proteinase 3 (PR3) Ab Myeloperoxidase Ab Glomerular Base Memb Ab Hepatitis A IgM Ab Hep Bs Antigen Hep Bs Antibody Hep B Core Total Ab Hepatitis C Ab (EIA) Microbiology Microbiology Results: Microbiology 08/17/23 20:45 Blood Culture - Preliminary Blood - Venous No growth after 48 hours. 08/17/23 20:45 Blood Culture - Preliminary Blood - Venous No growth after 48 hours. 08/17/23 23:20 Urine Culture - Final Urine clean catch - Urine bray top No growth. Assessment and Plan (1) UTI (urinary tract infection): Status: Acute (2) Transaminitis: Status: Acute (3) Acute renal failure: Status: Acute Assessment and Plan: 58-year-old female with history of hypertension, hypercholesterolemia, hypertriglyceridemia, and chronic low back pain admitted for JOSETTE with UTI Acute kidney injury Cr 4.14-->5.47 -->6.82-6.97, etiology unclear at this time but probably ATN per nephro likely due to frequent custodial ibuprofen use outpt (chronic LBP follows with [facility] pain mgmt). Ibuprofen on hold, renal recovery likely lagging but with polyuria and will likely begin to improve per nephro. no indication for HD at this time,ANCA, anti glomerular basement membrane, complement C3/C4, double-stranded DNA, immunofixation panel, lupus anticoagulant panel, EDU pending Plan: producing urine , IVF @75ml/hr x1L per nephro avoid nephrotoxins,strict I&O follow renal function/lytes,nephrology input appreciated and follow up. Bacteriuria-Initial UA with trace leukocytes, negative nitrites, trace blood, positive urinary sediment, 4+ bacteria blood culture neg@48hrs intial started IV ceftriaxone (initiated 08/17),Discontinued cefuroxime 08/19, urine culture negative repeat UA given ongoing dysuria not indicative of infection Acute Pancytopenia-etiology unclear LDH 327, ferritin 3735 WBC 3.6, H/H 10.4/30.55, PLT97 ADAMS13 pending, peripheral smear pending Hem/onc consult Acute Hyponatremia:129 -likely hyposmolar 2/ aggressive IVF -improving with slowed IVF. off ivf. transaminitis- improving -?statin induced, MRCP negative for obstructed stone -AST/ALT trending down -acetaminophen level undetectable, ethyl alcohol level undetectable, hepatitis panel pending -Hold crestor -GI input appreciated, will continue following -Follow LFTs HTN- uncontrolled off amlodipine. Nifedipine 30mg ER added -monitor bp Hyperlipidemia/hypertriglyceridemia-Last triglyceride level at [facility] >1100, improved to 660 -Lipid panel pending -hold crestor due to above DVT prophylaxis-hold heparin due to worsening thrombocytopenia. SCP's, ambulation Full code ongoing inpatient stay for management of acute kidney injury and pancytopenia requiring close monitoring of blood count, renal function, electrolytes, and expert consultation to further investigate etiology and guide treatment plan and dispo Quality Stroke Does the patient have a stroke diagnosis?: No VTE Prior VTE?: No VTE Risk Level:: Medical - moderate - high VTE Device Contraindication: Treatment Not Indicated VTE Drug Contraindication: N/A - Med Ordered
[2023-08-20] MEDS: 0.9 % Sodium Chloride 1,000 ML 75 ML IVCONT (13:15)
--- NOTE | 2023-08-20 13:21 | PM.PNNEP ---
Subjective Subjective Date of Service: 08/20/23 Interval history: Events noted. All data reviewed. Discussed with hospitalist, patient and . Urine output good. Serum creatinine not plateaued yet. Platelet count dropped. Physical Exam Vital Signs: Vital Signs: Last Vital Signs Temp 96.8 F 08/20/23 07:15 Pulse 65 08/20/23 07:15 Resp 18 08/20/23 07:15 BP 145/86 H 08/20/23 07:15 Pulse Ox 97 08/20/23 07:15 O2 Del Method Room Air 08/20/23 07:15 BMI result Body Mass Index 20.2 Const: General: comfortable and no acute distress Orientation/consciousness: patient oriented x3 HEENT: Head: Yes normocephalic Mouth: Normal oral and palatal mucosa present Eyes: EOM: EOMs intact bilaterally Neck: Neck: Yes supple Resp: Auscultation: clear to auscultation bilaterally Cardio: Jugular venous distension: no JVD Rate: regular rate GI: Palpation (GI): Soft to palpation Auscultation: normal bowel sounds : General: Yes no CVA tenderness Back/Spine/Pelvis: Back: no CVA tenderness Skin: General skin exam: no rashes or lesions noted Neuro: General: patient oriented x3 and moves all extremities Extrem: General: Yes no pedal edema Objective Data Labs 08/20/23 05:33 08/20/23 05:33 Labs: Laboratory Results - last 24 hr 08/17/23 08/18/23 08/18/23 16:59 08:52 Unknown WBC RBC Hgb Hct MCV MCH MCHC RDW Plt Count MPV Immature Gran % (Auto) Neut % (Auto) Lymph % (Auto) [place] % (Auto) Eos % (Auto) Baso % (Auto) Lymph # (Auto) [place] # (Auto) Eos # (Auto) Baso # (Auto) Abs Immat Gran (auto) Absolute Neuts (auto) Absolute Nucleated RBC Nucleated RBC % (auto) Sodium Potassium Chloride Carbon Dioxide Anion Gap BUN Creatinine Estim Creat Clear Calc Estimated GFR Random Glucose Uric Acid Calcium Total Bilirubin AST ALT Alkaline Phosphatase Total Creatine Kinase Total Protein Albumin Vitamin B12 Folate Urine Color Urine Appearance Urine pH Ur Specific [place] Urine Protein Urine Glucose (UA) Urine Ketones Urine Blood Urine Nitrite Ur Leukocyte Esterase Urine RBC Urine WBC Ur Squamous Epith Cells Urine Bacteria Hyaline Casts Urine Eosinophils % Urine Immunofixation Proteinase 3 (PR3) Ab <1.0 Myeloperoxidase Ab <1.0 Glomerular Base Memb Ab <1.0 Hepatitis A IgM Ab Nonreactive Hep Bs Antigen Negative Hep Bs Antibody NONREACTIVE Hep B Core Total Ab Nonreactive Hepatitis C Ab (EIA) Nonreactive 08/19/23 08/19/23 08/20/23 12:19 15:36 05:33 WBC 3.6 L RBC 3.19 L Hgb 10.4 L Hct 30.3 L MCV 95.0 MCH 32.6 MCHC 34.3 RDW 13.2 Plt Count 97 L MPV 11.2 Immature Gran % (Auto) 0.6 H Neut % (Auto) 59.4 Lymph % (Auto) 21.2 [place] % (Auto) 14.6 H Eos % (Auto) 3.9 Baso % (Auto) 0.3 Lymph # (Auto) 0.8 L [place] # (Auto) 0.5 Eos # (Auto) 0.1 Baso # (Auto) 0.0 Abs Immat Gran (auto) 0.02 Absolute Neuts (auto) 2.2 Absolute Nucleated RBC 0.000 Nucleated RBC % (auto) 0.0 Sodium 129 L Potassium 4.6 Chloride 102 Carbon Dioxide 16 L Anion Gap 16 BUN 45 H Creatinine 6.97 H* Estim Creat Clear Calc 8.0 Estimated GFR 6 Random Glucose 94 Uric Acid 11.3 H Calcium 8.3 L Total Bilirubin 0.3 AST 148 H ALT 132 H Alkaline Phosphatase 152 H Total Creatine Kinase 52 Total Protein 5.6 L Albumin 3.1 L Vitamin B12 > 2000 H Folate 14.3 Urine Color Yellow Urine Appearance Clear Urine pH 5.5 Ur Specific [place] <= 1.005 Urine Protein Trace Urine Glucose (UA) Negative Urine Ketones Negative Urine Blood Trace H Urine Nitrite Negative Ur Leukocyte Esterase Negative Urine RBC 0-2 Urine WBC 0-5 Ur Squamous Epith Cells 0-2 Urine Bacteria None Seen Hyaline Casts 0-2 Urine Eosinophils % 0.0 Urine Immunofixation Proteinase 3 (PR3) Ab Myeloperoxidase Ab Glomerular Base Memb Ab Hepatitis A IgM Ab Hep Bs Antigen Hep Bs Antibody Hep B Core Total Ab Hepatitis C Ab (EIA) Microbiology Microbiology Results: Microbiology 08/17/23 20:45 Blood - Venous Blood Culture - Preliminary No growth after 48 hours. 08/17/23 20:45 Blood - Venous Blood Culture - Preliminary No growth after 48 hours. 08/17/23 23:20 Urine clean catch - Urine bray top Urine Culture - Final No growth. Procedures Date of Service Date of Service: 08/20/23 Assessment & Plan Assessment and plan (1) Acute renal failure: Status: Acute Plan JOSETTE likely due to tubular injury DDX broad; W/U in progress Tick panel ordered No obstruction by imaging Urine output very good No indication for HD now Needs Heme review given thrombocytopenia Peripheral smear to R/O schistocytes C/W current mangement for now Progress Note: Quality Stroke Does the patient have a stroke diagnosis?: No
[2023-08-20 15:15] VITALS: BP 149/90; PULSE 67; RESP 18; TEMP 36.1; O2SAT 98
[2023-08-20 15:52] LABS: Adenovirus PCR Not Detected (Not Detect.); Bordetella parapertussis PCR Not Detected (Not Detect.); Bordetella pertussis PCR Not Detected (Not Detect.); Chlamydia pneumoniae PCR Not Detected (Not Detect.); Coronavirus 229E PCR Not Detected (Not Detect.); Coronavirus HKU1 PCR Not Detected (Not Detect.); Coronavirus NL63 PCR Not Detected (Not Detect.); Coronavirus OC43 PCR Not Detected (Not Detect.); Human metapneumovirus PCR Not Detected (Not Detect.); Influenza A PCR Not Detected (Not Detect.); Influenza B PCR Not Detected (Not Detect.); Mycoplasma pneumoniae PCR Not Detected (Not Detect.); Parainfluenza 1 PCR Not Detected (Not Detect.); Parainfluenza 2 PCR Not Detected (Not Detect.); Parainfluenza 3 PCR Not Detected (Not Detect.); Parainfluenza 4 PCR Not Detected (Not Detect.); RSV PCR Not Detected (Not Detect.); Rhino/Enterovirus PCR Not Detected (Not Detect.)
[2023-08-20 16:00] LABS: SARS-CoV-2 PCR Not Detected (Not Detect.)
--- NOTE | 2023-08-20 16:36 | PM.HEMONCCN ---
Subjective - Subjective Chief complaint: Consult for: Pancytopenia. Patient: new to practice Consult date: 08/20/23 Requesting Physician: Dr. Lomeli Primary Care Provider: Bibi Foster MD Medical Summary: DIAGNOSIS: PANCYTOPENIA. HPI - Consult Narrative Reason for consult: Consult for: Pancytopenia. Narrative: Edna Kenney is a 58 year old lady admitted on for evaluation of right upper quadrant/epigastric pain ongoing for 2 days with associated nausea and vomiting. She also states that for the last few months she has been experiencing intermittent diarrhea, aching joints, and headaches which she attributed to the rosuvastatin that she was started on about 5 months ago by PCP. This was for severely elevated triglyceride levels >1100. She states she tried cutting the dose down to 20 mg daily but continued to experience symptoms so she discontinued the medication about 1 week ago. She states her urine has also been cloudy with decreased urine output for the last several days. Denies any fevers, chills, congestion, melena, hematochezia, dyspnea, chest pain, lightheadedness. She does state that it is difficult to take a deep breath due to abdominal pain. She reports only occasional alcohol use and denies any current or prior history of drug use. On arrival, patient has been hypertensive to 169/129, vitals otherwise normal. There is a leukopenia of 3.1. Creatinine 4.14, baseline 0.7. BUN 38. Sodium 130, chloride 95, CO2 20, electrolytes otherwise normal. AST 2881, ALT 522, alkaline phosphatase 259. Total CK 166. Troponin 3.7, BNP 84. Lipase 53. ABG showed pH 7.30, pCO2 30, bicarb 15. Urinalysis with trace leukocytes, negative nitrites, trace blood, 3+ protein, positive urinary sediment, 4+ bacteria. Acetaminophen level below detectable limits. Ethyl alcohol level below detectable limits. Hepatitis panel pending. Negative for COVID-19 and influenza. Chest x-ray unremarkable. CT abdomen/pelvis shows fatty liver and normal-appearing gallbladder. There is dilated CBD measuring 1.2 cm but no gallstones or common bile duct stone seen on CT. In the ED, was given Reglan, Benadryl, and 2 L IV NS. Review of Systems: General: No fevers, malaise, unintentional weight loss HEENT: No blurred vision, diplopia. No sore throat, nasal congestion, rhinorrhea, sinus pain, ear pain Cardiovascular: No chest pain, palpitations, or leg edema Respiratory: No shortness of breath, wheezing, cough GI: +abd pain, +nausea, +vomiting. +constipation. No constipation, melena, hematochezia : +cloudy urine, +decreased urine output. No dysuria, hematuria, increased urinary frequency MSK: No myalgia, back pain Neuro: No headaches, weakness, paresthesias Skin: No rashes or lesions [facility]: hypertension, hypercholesterolemia, hypertriglyceridemia, and chronic low back pain. Chronic low back pain Hypertriglyceridemia Hyperlipidemia HTN (hypertension) Review of Systems - Constitutional Reports system reviewed and no additional complaints, except as documented, Reports lack of energy, Reports malaise, Reports weight loss - Eyes Reports system reviewed and no additional complaints, except as documented - ENT Reports system reviewed and no additional complaints, except as documented - Cardiovascular Reports system reviewed and no additional complaints, except as documented - Respiratory Reports no additional respiratory complaints - Gastrointestinal Reports system reviewed and no additional complaints, except as documented - Genitourinary Reports no additional female genitourinary complaints - Musculoskeletal Reports system reviewed and no additional complaints, except as documented - Integumentary/Breasts Skin/Breast: Reports no additional skin complaints - Neurologic Reports weakness - Psychiatric Reports system reviewed and no additional complaints, except as documented - Endocrine Reports no additional endocrine complaints - Hematologic/Lymphatic Reports system reviewed and no additional complaints, except as documented - Allergic/Immunologic Reports system reviewed and no additional complaints, except as documented Oncology Screenings - ECOG Performance Status ECOG Performance Status: 2 [facility] Medical History: Medical History (Last Updated 08/17/23 @ 20:33 by CHUN Chan) Chronic low back pain HTN (hypertension) Hyperlipidemia Hypertriglyceridemia Functional capacity: uses cane/walker Social History: Social History Living Situation History: Household Members: Spouse Housing: Apartment Do you presently have visiting nurse or other home services: No Tobacco History: Patient Tobacco Use Status: Never used Tobacco Occupation Assessmet: service: No Home Medications and Allergies Current Medications: Current Medications Acetaminophen (Acetaminophen 325 Mg Tablet) 650 mg PO Q6H PRN PRN Reason: Pain, Mild (Pain Scale 1-3) Carisoprodol (Carisoprodol 350 Mg Tablet) 175 mg PO TID PRN PRN Reason: low back pain Last Admin: 08/20/23 09:31 Dose: 175 mg Clonazepam (Clonazepam 0.5 Mg Tablet) 0.5 mg PO BID PRN PRN Reason: Anxiety Last Admin: 08/19/23 09:11 Dose: 0.5 mg Sodium Chloride (Ns) 1,000 mls @ 75 mls/hr IVCONT .[id number] [facility] Last Admin: 08/20/23 13:15 Dose: 75 mls/hr Nifedipine (Nifedipine Er 30 Mg Tab.Er.24) 30 mg PO DAILY [facility]; Protocol Last Admin: 08/20/23 07:50 Dose: 30 mg Ondansetron HCl (Ondansetron Hcl 4 Mg/2 Ml Vial) 4 mg IVPUSH Q8H PRN PRN Reason: Nausea and Vomiting Oxycodone HCl (Oxycodone Hcl Immed Release 5 Mg Tablet) 5 mg PO Q4H PRN PRN Reason: Pain, Moderate(Pain Scale 4-6) Last Admin: 08/20/23 15:10 Dose: 5 mg Polyethylene Glycol (Polyethylene Glycol 3350 17 Gm Powd.Pack) 17 gm PO DAILY [facility] Last Admin: 08/20/23 09:31 Dose: 17 gm Senna (Sennosides 8.6 Mg Tablet) 17.2 mg PO BEDTIME PRN PRN Reason: Constipation Sodium Chloride (0.9 % Sodium Chloride Flush 3 Ml Syringe) 3 ml IVFLUSH QSHIFT [facility] Last Admin: 08/20/23 15:04 Dose: Not Given Tramadol HCl (Tramadol Hcl 50 Mg Tablet) 25 mg PO QID [facility] Last Admin: 08/20/23 13:24 Dose: 25 mg Home Medications Medication Instructions Recorded Confirmed Type carisoprodol 350 mg tablet 175 mg PO TID PRN low back pain 08/17/23 08/18/23 History tramadol 50 mg tablet 25 mg PO TID-QID 08/17/23 08/18/23 History clonazepam 0.5 mg tablet 0.25 mg PO TID PRN anxiety 08/18/23 08/18/23 History cyanocobalamin (vitamin B-12) 1,000 mcg IM QMONTH 08/18/23 08/18/23 History 1,000 mcg/mL injection solution Allergies Allergy/AdvReac Type Severity Reaction Status Date / Time morphine AdvReac Itching Verified 08/17/23 14:02 Physical Exam Vital signs: Vital Signs Temp 96.9 F 08/20/23 15:15 Pulse 67 08/20/23 15:15 Resp 18 08/20/23 15:15 BP 149/90 H 08/20/23 15:15 Pulse Ox 98 08/20/23 15:15 O2 Del Method Room Air 08/20/23 15:15 Intake & Output 08/19/23 08/20/23 08/20/23 18:59 06:59 18:59 Intake Total 2024 Output Total 850 / 850 Balance 1175 / 1175 1959 Urine Output (Average ml/kg/hr) 1.25 1.25 Intake: Intake, Oral Amount 1040 / 1040 960 / 960 Intake, IV Amount 985 / 985 1000 / 1000 0.9 % Sodium Chloride 1,000 ml 985 / 985 1000 / 1000 @ 75 mls/hr IVCONT .[id number] Rx#:[id number] Output: Output, Urine Amount 850 / 850 Other: NPO Yes Breakfast % Eaten 75% Lunch % Eaten 75% Number of Unmeasured Voids 1 3 Urine Bathroom Bathroom Urine Color Pale Yellow Yellow Weight 56.7 kg - Constitutional Present: mild distress - Routine HEENT Exam Head: Present: normocephalic Eye: Present: normal appearance ENT: Present: mucous membranes moist - Routine Neck Exam Present: supple - Routine Respiratory Exam Present: CTAB - Routine Cardiovascular Exam Cardiovascular: Present: RRR, S1, S2 - Routine Extremities Exam Present: nontender - Routine Skin Exam Present: intact, normal turgor - Routine Neurological Exam Present: alert Hem/Onc Consult Result - Labs CBC & Chem 7: 08/22/23 05:51 08/23/23 07:55 Labs: Short CBC 08/20/23 Range/Units 05:33 WBC 3.6 L (4.8-10.8) X10*3/uL Hgb 10.4 L (12.0-16.0) g/dl Hct 30.3 L (37.0-47.0) % Plt Count 97 L (160-400) X10*3/uL BMP 08/20/23 05:33 Sodium 129 L Potassium 4.6 Chloride 102 Carbon Dioxide 16 L BUN 45 H Creatinine 6.97 H* Calcium 8.3 L Cardiac Enzymes 08/20/23 Range/Units 05:33 Total Creatine Kinase 52 (26-140) U/L Liver Function 08/20/23 Range/Units 05:33 Total Bilirubin 0.3 (0.0-1.0) mg/dL AST 148 H (5-31) U/L ALT 132 H (0-31) U/L Alkaline Phosphatase 152 H (39-117) U/L Albumin 3.1 L (3.5-5.0) g/dL Assessment and Plan Patient Active problem list reviewed?: Yes (1) Pancytopenia Status: Acute Assessment and plan: This is a pleasant 58-year-old lady with history of hypertension, hypercholesterolemia, hypertriglyceridemia, and chronic low back pain. She was admitted on 08/17, for JOSETTE with UTI. -Creat 4.14, baseline 0.7, BUN 38. Noted to have significantly elevated LFTs. # transaminitis -?statin induced, less likely obstructive -Bili WNL, AST 2881, ALT 522 -acetaminophen level undetectable, ethyl alcohol level undetectable, hepatitis panel negative. Now showing a downward trend. PANCYTOPENIA: Thrombocytopenia: Serial platelet count: 153, 118, 107, 97. DIFFERENTIAL DIAGNOSIS: 1. RELATED TO INFECTION: # acute UTI: UA with trace leukocytes, negative nitrites, trace blood, positive urinary sediment, 4+ bacteria. On IV ceftriaxone (initiated 08/17). Follow CBC, cultures 2. MEDICATION RELATED: Has been maintained on antibiotics. 3. COLLAGEN VASCULAR DISORDER: SLE versus RHEUMATOID ARTHRITIS. 4. DIC: Could be related to infection. 5. TTP/HS: Given anemia, thrombocytopenia, elevated renal function. However no fragments on the smear. No evidence of hemolysis. 6. UNDERLYING MYELO INFILTRATIVE DISORDER: Multiple myeloma versus MDS versus lymphoma. PLAN: Autoimmune profile: EDU: Negative. Check hemolytic screen: Retic: 2.4, haptoglobin: 197, LDH: 372. Check fibrinogen: 700. VERONIQUE-TS 13: 0.98. Meanwhile check peripheral smear, for fragments: Normochromic normocytic anemia, few echinocytes, toxic vacuolation. No fragments. LDH: 372. SIEP: Pending: no monoclonal spike. Workup is in progress. I will follow along with you, Meanwhile: -continue IVF -avoid nephrotoxins -strict I&O -follow renal function/lytes -Seen by nephrology. -JOSETTE likely due to tubular injury Tick panel ordered No obstruction by imaging Urine output very good, No indication for HD now Peripheral smear to R/O schistocytes -MRCP ordered given dilated CBD 1.2cm on CT -Hold crestor - Time Spent With Patient Time Spent with Patient (in minutes): 30
[2023-08-20 17:46] LABS: Immature Retic Fraction 16.1 % (3.0-15.9); Retic HGB Equivalent 34.5 pg (30.0-35.0); Reticulocyte Percent 2.4 % (0.5-1.8); Reticulocytes Absolute 0.077 X10*6/uL (0.026-0.095)
[2023-08-20] MEDS: ondansetron HCL 4 MG/2 ML VIAL IVPUSH (18:29)
[2023-08-20] MEDS: clonazePAM 0.5 MG TABLET PO (18:29)
[2023-08-20 19:09] VITALS: BP 135/86; PULSE 70; RESP 16; TEMP 36.8; O2SAT 96
[2023-08-20 22:48] LABS: PTT (LAC) Screen 42 sec (<=40)
[2023-08-20 22:59] LABS: Hexagonal Phase Neutralization Negative (Negative)
[2023-08-21] MEDS: 0.9 % Sodium Chloride 1,000 ML 75 ML IVCONT (02:44)
[2023-08-21] MEDS: oxyCODONE HCl Immed Release 5 MG TABLET PO ×4 (02:46→22:05)
[2023-08-21 03:00] VITALS: BP 122/79; PULSE 61; RESP 14; TEMP 36.2; O2SAT 97
[2023-08-21 05:26] LABS: PLT CLUMP 1
[2023-08-21 05:27] LABS: Hematocrit 30.5 % (37.0-47.0); Hemoglobin 10.4 g/dl (12.0-16.0); Mean Corpuscular HGB Conc 34.1 g/dl (31.0-35.0); Mean Corpuscular Hemoglobin 32.4 pg (27.0-33.0); Mean Platelet Volume 10.9 fL (9.4-12.3); Red Blood Count 3.21 X10*6/uL (4.20-5.50)
[2023-08-21 05:28] LABS: Platelet Count 111 X10*3/uL (160-400); White Blood Count 4.3 X10*3/uL (4.8-10.8)
[2023-08-21 05:41] LABS: Anion Gap 14 (12-20); Blood Urea Nitrogen 41 mg/dL (9-16); Calcium 8.5 mg/dL (8.4-10.2); Carbon Dioxide 18 mmol/L (22-29); Chloride 102 mmol/L (96-108); Creatinine Clr Calc Pharmacy 8.9; Estimated Glomerular Filt Rate 7; Glucose Random 93 mg/dL (60-115); Potassium 4.3 mmol/L (3.3-5.1); Sodium 130 mmol/L (135-145)
[2023-08-21 07:17] VITALS: BP 138/89; PULSE 59; RESP 18; TEMP 36.7; O2SAT 99
[2023-08-21] MEDS: NIFEdipine ER 30 MG TAB.ER.24 PO (07:27)
[2023-08-21] MEDS: traMADoL HCL 50 MG TABLET 25 MG PO ×4 (07:27→20:24)
--- NOTE | 2023-08-21 12:04 | MHC.CM.PN ---
Per MD rounds patient is not medically cleared for dc at this time. CM will continue to follow.
[2023-08-21 12:44] LABS: Prot Elec - Alpha1 0.3 g/dL (0.2-0.3); Prot Elec - Alpha2 0.7 g/dL (0.5-0.9); Prot Elec - Beta 1 0.3 g/dL (0.4-0.6); Prot Elec - Beta 2 0.3 g/dL (0.2-0.5); Prot Elec - Gamma 0.5 g/dL (0.8-1.7); Prot Elec - Total Protein 5.1 g/dL (6.1-8.1)
[2023-08-21 13:28] LABS: IgA 95 mg/dL (47-310); IgG 768 mg/dL (600-1640); IgM 81 mg/dL (50-300)
--- NOTE | 2023-08-21 14:21 | P.PNIM_ITS ---
Subjective Subjective Date of Service: 08/21/23 Interval History: acute kidney injury, UTI, transaminitis Review of Systems denies new c/o no fevers Physical Exam 2 Vital Signs: Vital Signs: Last Vital Signs Temp 98.0 F 08/21/23 07:17 Pulse 59 08/21/23 07:17 Resp 18 08/21/23 07:17 BP 138/89 08/21/23 07:17 Pulse Ox 99 08/21/23 07:17 O2 Del Method Room Air 08/21/23 07:17 BMI result Body Mass Index 20.2 Appearance: Alert.? Oriented X3.? cvs: rrr, [id number]. res: clear to auscultation ,no rhonchii or wheezing abd: no rebound or guarding ,nt, bs present. ext pulses present , no cyanosis . neuro: axo3 , nonfocal. Objective Data Active Medications Acetaminophen (Acetaminophen 325 Mg Tablet) 650 mg PO Q6H PRN PRN Reason: Pain, Mild (Pain Scale 1-3) Carisoprodol (Carisoprodol 350 Mg Tablet) 175 mg PO TID PRN PRN Reason: low back pain Last Admin: 08/20/23 23:37 Dose: 175 mg Documented By: LEYDA Clonazepam (Clonazepam 0.5 Mg Tablet) 0.5 mg PO BID PRN PRN Reason: Anxiety Last Admin: 08/20/23 18:29 Dose: 0.5 mg Documented By: PETRA Nifedipine (Nifedipine Er 30 Mg Tab.Er.24) 30 mg PO DAILY [facility]; Protocol Last Admin: 08/21/23 07:27 Dose: 30 mg Documented By: LAURENCE Ondansetron HCl (Ondansetron Hcl 4 Mg/2 Ml Vial) 4 mg IVPUSH Q8H PRN PRN Reason: Nausea and Vomiting Last Admin: 08/20/23 18:29 Dose: 4 mg Documented By: PETRA Oxycodone HCl (Oxycodone Hcl Immed Release 5 Mg Tablet) 5 mg PO Q4H PRN PRN Reason: Pain, Moderate(Pain Scale 4-6) Last Admin: 08/21/23 07:26 Dose: 5 mg Documented By: LAURENCE Polyethylene Glycol (Polyethylene Glycol 3350 17 Gm Powd.Pack) 17 gm PO DAILY [facility] Last Admin: 08/21/23 07:28 Dose: Not Given Documented By: LARUENCE Non-Admin Reason: loose stools Senna (Sennosides 8.6 Mg Tablet) 17.2 mg PO BEDTIME PRN PRN Reason: Constipation Sodium Chloride (0.9 % Sodium Chloride Flush 3 Ml Syringe) 3 ml IVFLUSH QSHIFT [facility] Last Admin: 08/21/23 06:54 Dose: Not Given Documented By: LAURENCE Non-Admin Reason: IV Running Tramadol HCl (Tramadol Hcl 50 Mg Tablet) 25 mg PO QID [facility] Last Admin: 08/21/23 12:56 Dose: 25 mg Documented By: LAURENCE Labs 08/21/23 05:10 08/21/23 05:10 Labs: Laboratory Results - last 24 hr 08/18/23 08/19/23 08/20/23 08:52 06:11 05:33 MCV MCH MCHC RDW Plt Count MPV Absolute Nucleated RBC Nucleated RBC % (auto) Smear Path Review SEE NOTE Absolute Retic 0.077 Percent Retic 2.4 H Immature Retic Fraction 16.1 H Retic Hgb Equivalent 34.5 LA PTT Screen 42 H LA Thrombin Time TNP dRVV Screen 30 dRVVT Confirm Interp TNP dRVVT Mixing Study TNP dRVVT Mix Interpret TNP Hexagon Phase Neutraliz Negative Lupus Anticoag Interp see note Anion Gap Estim Creat Clear Calc Estimated GFR Random Glucose Calcium Total Protein (PEP) 5.1 L Albumin (PEP) 3.0 L Txstk-0-Jjgacrvyz 0.3 Sbgyn-8-Kxcufcqfw 0.7 Ejec-7-Yrvktdni 0.3 L Nxjv-8-Lafavoob 0.3 Gamma Globulins 0.5 L PEP Interpretation SEE NOTE IgG Total 768 IgA Total 95 IgM 81 VICENTE Interpretation SEE NOTE Respiratory Panel [place] Adenovirus (Rapid PCR) B.pert (TEM-PCR) B.parapertussis DNA PCR C. pneumoniae DNA (PCR) Coronavirus OC43 (PCR) Coronavirus HKU1 (PCR) Coronavirus 229E (PCR) Coronavirus NL63 (PCR) Human Metapneumovir PCR Influenza A (RT-PCR) Influenza B (RT-PCR) M. pneumoniae (PCR) Parainfluenza 1 (PCR) Parainfluenza 2 (PCR) Parainfluenza 3 (PCR) Parainfluenza 4 (PCR) RSV (PCR) Entero/Rhino (PCR) SARS-CoV-2 RNA (RT-PCR) CEDRIC, Polyspecific NEGATIVE Positive CEDRIC Work-up TNP 08/20/23 08/21/23 10:44 05:10 MCV 95.0 MCH 32.4 MCHC 34.1 RDW 13.0 Plt Count 111 L MPV 10.9 Absolute Nucleated RBC 0.000 Nucleated RBC % (auto) 0.0 Smear Path Review Absolute Retic Percent Retic Immature Retic Fraction Retic Hgb Equivalent LA PTT Screen LA Thrombin Time dRVV Screen dRVVT Confirm Interp dRVVT Mixing Study dRVVT Mix Interpret Hexagon Phase Neutraliz Lupus Anticoag Interp Anion Gap 14 Estim Creat Clear Calc 8.9 Estimated GFR 7 Random Glucose 93 Calcium 8.5 Total Protein (PEP) Albumin (PEP) Cghnn-3-Mjwmoyxha Zxtfk-9-Bcfpfhvmq Frzf-9-Godfncqe Ikzn-3-Qwaljuho Gamma Globulins PEP Interpretation IgG Total IgA Total IgM VICENTE Interpretation Respiratory Panel [place] See Note Adenovirus (Rapid PCR) Not Detected B.pert (TEM-PCR) Not Detected B.parapertussis DNA PCR Not Detected C. pneumoniae DNA (PCR) Not Detected Coronavirus OC43 (PCR) Not Detected Coronavirus HKU1 (PCR) Not Detected Coronavirus 229E (PCR) Not Detected Coronavirus NL63 (PCR) Not Detected Human Metapneumovir PCR Not Detected Influenza A (RT-PCR) Not Detected Influenza B (RT-PCR) Not Detected M. pneumoniae (PCR) Not Detected Parainfluenza 1 (PCR) Not Detected Parainfluenza 2 (PCR) Not Detected Parainfluenza 3 (PCR) Not Detected Parainfluenza 4 (PCR) Not Detected RSV (PCR) Not Detected Entero/Rhino (PCR) Not Detected SARS-CoV-2 RNA (RT-PCR) Not Detected CEDRIC, Polyspecific Positive CEDRIC Work-up Assessment and Plan (1) UTI (urinary tract infection): Status: Acute (2) Transaminitis: Status: Acute (3) Acute renal failure: Status: Acute Assessment and Plan: 58-year-old female with history of hypertension, hypercholesterolemia, hypertriglyceridemia, and chronic low back pain admitted for JOSETTE with UTI Acute kidney injury Cr 4.14-->5.47 -->6.82-6.97, etiology unclear at this time but probably ATN per nephro 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 Ibuprofen on hold, renal recovery likely lagging but with polyuria and will likely begin to improve per nephro. no indication for HD at this time,ANCA, anti glomerular basement membrane, complement C3/C4, double-stranded DNA, immunofixation panel, lupus anticoagulant panel, EDU pending Plan: producing urine continue IVF per nephro,avoid nephrotoxins,strict I&O follow renal function/lytes,nephrology input appreciated and follow up. Bacteriuria-Initial UA with trace leukocytes, negative nitrites, trace blood, positive urinary sediment, 4+ bacteria blood culture neg@48hrs intial started IV ceftriaxone (initiated 08/17),Discontinued cefuroxime 08/19, urine culture negative repeat UA -seems fine . Acute Pancytopenia-etiology unclear LDH 327, ferritin 3735 slowly improving-WBC 4.3, H/H 10.4/30.55, RPQ109 ADAMS13 pending, peripheral smear seems no schistocytes. Hem/onc consult noted -moniter cbc since thrombocytopenia improving Acute Hyponatremia:improving to 130 monitre bmp. transaminitis- improving thought to be -?statin induced, MRCP negative for obstructed stone. acetaminophen level undetectable, ethyl alcohol level undetectable, hepatitis panel pending AST/ALT improving plan: Hold crestor GI input appreciated-moniter lft's. HTN- uncontrolled off amlodipine,on Nifedipine 30mg ER. -monitor bp Hyperlipidemia/hypertriglyceridemia-Last triglyceride level at [facility] [place] >1100, improved to 660 Lipid panel Tg 680,chol 217 ,hdl 20. hold crestor due to above DVT prophylaxis-hold heparin due to worsening thrombocytopenia. SCP's, ambulation Full code ongoing inpatient stay for management of acute kidney injury and pancytopenia requiring close monitoring of blood count, renal function, electrolytes, and expert consultation to further investigate etiology and guide treatment plan and dispo Quality Stroke Does the patient have a stroke diagnosis?: No VTE Prior VTE?: No VTE Risk Level:: Medical - moderate - high VTE Device Contraindication: Treatment Not Indicated VTE Drug Contraindication: N/A - Med Ordered
[2023-08-21 14:43] LABS: Beta-2 Microglobulin, Serum 3.97 mg/L (< OR = 2.51)
[2023-08-21] MEDS: carisoprodoL 350 MG TABLET 175 MG PO ×2 (15:01→22:06)
[2023-08-21 15:26] VITALS: BP 123/80; PULSE 67; RESP 18; TEMP 36.3; O2SAT 96
[2023-08-21 16:44] LABS: ADAMTS13 Activity 0.98 IU/mL (0.68-1.63)
[2023-08-21 19:13] VITALS: BP 128/82; PULSE 57; RESP 18; TEMP 36.5; O2SAT 97
--- NOTE | 2023-08-21 20:18 | P.PNNP_ITS ---
Subjective Subjective Date of Service: 08/21/23 Interval history: Events noted. All data reviewed. Discussed with hospitalist & patient and RN. Urine output good. Serum creatinine improved. Platelet count better. Physical Exam 2 Vital Signs: Vital Signs: Last Vital Signs Temp 97.7 F 08/21/23 19:13 Pulse 57 08/21/23 19:13 Resp 18 08/21/23 19:13 BP 128/82 08/21/23 19:13 Pulse Ox 97 08/21/23 19:13 O2 Del Method Room Air 08/21/23 19:13 BMI result Body Mass Index 20.2 Const: General: comfortable and no acute distress O rientation/consciousness: patient oriented x3 HEENT: Head: Yes normocephalic Mouth: Normal oral and palatal mucosa present Eyes: EOM: EOMs intact bilaterally Neck: Neck: Yes supple Resp: Auscultation: clear to auscultation bilaterally Cardio: Jugular venous distension: no JVD Rate: regular rate GI: Palpation (GI): Soft to palpation Auscultation: normal bowel sounds : General: Yes no CVA tenderness Back/Spine/Pelvis: Back: no CVA tenderness Skin: General skin exam: no rashes or lesions noted Neuro: General: patient oriented x3 and moves all extremities Extrem: General: Yes no pedal edema Objective Data Labs 08/21/23 05:10 08/21/23 05:10 Labs: Laboratory Results - last 24 hr 08/18/23 08/19/23 08/19/23 08:52 06:11 09:55 WBC RBC Hgb Hct MCV MCH MCHC RDW Plt Count MPV Absolute Nucleated RBC Nucleated RBC % (auto) Smear Path Review SEE NOTE LA PTT Screen 42 H LA Thrombin Time TNP dRVV Screen 30 dRVVT Confirm Interp TNP dRVVT Mixing Study TNP dRVVT Mix Interpret TNP Hexagon Phase Neutraliz Negative Lupus Anticoag Interp see note [id number] Activity Intrp 0.98 Sodium Potassium Chloride Carbon Dioxide Anion Gap BUN Creatinine Estim Creat Clear Calc Estimated GFR Random Glucose Calcium Total Protein (PEP) Albumin (PEP) Amxhw-3-Bbxlbpjbk Eclgz-4-Ovozvqwfd Zztp-0-Bgjhjahr Hbvn-1-Upuwpltg Qgle-0-Egogiwhhsprtl Gamma Globulins PEP Interpretation IgG Total 768 IgA Total 95 IgM 81 VICENTE Interpretation SEE NOTE CEDRIC, Polyspecific Positive CEDRIC Work-up 08/20/23 08/21/23 05:33 05:10 WBC 4.3 L RBC 3.21 L Hgb 10.4 L Hct 30.5 L MCV 95.0 MCH 32.4 MCHC 34.1 RDW 13.0 Plt Count 111 L MPV 10.9 Absolute Nucleated RBC 0.000 Nucleated RBC % (auto) 0.0 Smear Path Review LA PTT Screen LA Thrombin Time dRVV Screen dRVVT Confirm Interp dRVVT Mixing Study dRVVT Mix Interpret Hexagon Phase Neutraliz Lupus Anticoag Interp [id number] Activity Intrp Sodium 130 L Potassium 4.3 Chloride 102 Carbon Dioxide 18 L Anion Gap 14 BUN 41 H Creatinine 6.27 H* Estim Creat Clear Calc 8.9 Estimated GFR 7 Random Glucose 93 Calcium 8.5 Total Protein (PEP) 5.1 L Albumin (PEP) 3.0 L Iqpfs-5-Rdaxziree 0.3 Dnlgl-5-Ctqrpkcmh 0.7 Zdhc-0-Ivfnqvrd 0.3 L Dode-9-Dwridyvt 0.3 Fofr-3-Cevnlkndelihs 3.97 H Gamma Globulins 0.5 L PEP Interpretation SEE NOTE IgG Total IgA Total IgM VICENTE Interpretation CEDRIC, Polyspecific NEGATIVE Positive CEDRIC Work-up TNP Microbiology Microbiology Results: Microbiology 08/17/23 20:45 Blood - Venous Blood Culture - Preliminary No growth after 48 hours. 08/17/23 20:45 Blood - Venous Blood Culture - Preliminary No growth after 48 hours. 08/17/23 23:20 Urine clean catch - Urine bray top Urine Culture - Final No growth. Procedures Date of Service Date of Service: 08/21/23 Assessment & Plan Assessment and plan (1) Acute renal failure: Status: Acute Plan JOSETTE likely due to tubular injury W/U in progress No obstruction by imaging Urine output very good No indication for HD ; Renal fn better Peripheral smear Ruled out schistocytes C/W current mangement for now Progress Note: Quality Stroke Does the patient have a stroke diagnosis?: No
[2023-08-21] MEDS: 0.9 % Sodium Chloride Flush 3 ML SYRINGE IVFLUSH (20:25)
[2023-08-21] MEDS: clonazePAM 0.5 MG TABLET PO (20:25)
[2023-08-22 01:29] LABS: A. Phagocytphilium DNA,RT-PCR NOT DETECTED (NOT DETECTED); Babesia Microti DNA, RT-PCR NOT DETECTED (NOT DETECTED); Borrelia Miyamotoi,DNA RT-PCR NOT DETECTED (NOT DETECTED); E.Chaffeensis DNA RT-PCR NOT DETECTED (NOT DETECTED); Lyme(Borrelia ssp)DNA RT-PCR NOT DETECTED (NOT DETECTED)
[2023-08-22 03:13] VITALS: BP 136/82; PULSE 63; RESP 18; TEMP 36.4; O2SAT 97
[2023-08-22 03:21] LABS: Haptoglobin 197 MG/DL ((30-200))
[2023-08-22 06:23] LABS: Smooth Muscle Antibody <20 U (<20)
[2023-08-22 07:09] LABS: Fibrinogen > 700 MG/DL (259-690)
[2023-08-22 07:31] VITALS: BP 146/92; PULSE 58; RESP 18; TEMP 36.1; O2SAT 98
[2023-08-22] MEDS: traMADoL HCL 50 MG TABLET 25 MG PO ×4 (08:40→20:55)
[2023-08-22] MEDS: oxyCODONE HCl Immed Release 5 MG TABLET PO (08:42)
[2023-08-22] MEDS: NIFEdipine ER 30 MG TAB.ER.24 PO (08:43)
[2023-08-22] MEDS: 0.9 % Sodium Chloride Flush 3 ML SYRINGE IVFLUSH ×3 (08:46→20:55)
[2023-08-22 08:50] LABS: Anion Gap 16 (12-20); Blood Urea Nitrogen 41 mg/dL (9-16); Calcium 9.2 mg/dL (8.4-10.2); Carbon Dioxide 18 mmol/L (22-29); Chloride 104 mmol/L (96-108); Creatinine Clr Calc Pharmacy 9.9; Estimated Glomerular Filt Rate 8; Glucose Random 90 mg/dL (60-115); Sodium 133 mmol/L (135-145)
[2023-08-22 09:22] LABS: Hematocrit 30.9 % (37.0-47.0); Hemoglobin 10.2 g/dl (12.0-16.0)
[2023-08-22 10:12] LABS: Platelet Count 128 X10*3/uL (160-400)
--- NOTE | 2023-08-22 12:48 | P.PNNP_ITS ---
Subjective Subjective Date of Service: 08/22/23 Interval history: Events noted. All data reviewed. Discussed with hospitalist & patient and RN. Urine output good. Serum creatinine improved. Physical Exam 2 Vital Signs: Vital Signs: Last Vital Signs Temp 96.9 F 08/22/23 07:31 Pulse 58 08/22/23 07:31 Resp 18 08/22/23 07:31 BP 146/92 H 08/22/23 07:31 Pulse Ox 98 08/22/23 07:31 O2 Del Method Room Air 08/22/23 07:31 BMI result Body Mass Index 20.2 Const: General: comfortable and no acute distress O rientation/consciousness: patient oriented x3 HEENT: Head: Yes normocephalic Mouth: Normal oral and palatal mucosa present Eyes: EOM: EOMs intact bilaterally Neck: Neck: Yes supple Resp: Auscultation: clear to auscultation bilaterally Cardio: Jugular venous distension: no JVD Rate: regular rate GI: Palpation (GI): Soft to palpation Auscultation: normal bowel sounds : General: Yes no CVA tenderness Back/Spine/Pelvis: Back: no CVA tenderness Skin: General skin exam: no rashes or lesions noted Neuro: General: patient oriented x3 and moves all extremities Extrem: General: Yes no pedal edema Objective Data Labs 08/22/23 05:51 08/22/23 05:51 Labs: Laboratory Results - last 24 hr 08/18/23 08/19/23 08/19/23 08:52 07:58 09:55 Hgb Hct Plt Count Haptoglobin Hold Purple Top Fibrinogen [id number] Activity Intrp 0.98 [id number] Inhibitor TNP Sodium Potassium Chloride Carbon Dioxide Anion Gap BUN Creatinine Estim Creat Clear Calc Estimated GFR Random Glucose Calcium Pote-7-Rxhemjsmfnnxb Abnorm Protein Band 1 Abnorm Protein Band 2 Abnorm Protein Band 3 IgG Total 768 IgA Total 95 IgM 81 VICENTE Interpretation SEE NOTE Anti-Smooth Muscle Ab <20 A.phagocytophil DNA PCR Babesia microti DNA PCR Borrelia sp DNA (PCR) Borrelia miyamotoi (PCR) E.chaffeensis DNA (PCR) Tick-borne Disease PCR 08/20/23 08/20/23 08/22/23 05:33 09:29 05:51 Hgb 10.2 L Hct 30.9 L Plt Count 128 L Haptoglobin 197 Hold Purple Top SEE NOTE Fibrinogen > 700 H [id number] Activity Intrp [id number] Inhibitor Sodium 133 L Potassium 5.0 Chloride 104 Carbon Dioxide 18 L Anion Gap 16 BUN 41 H Creatinine 5.70 H* Estim Creat Clear Calc 9.9 Estimated GFR 8 Random Glucose 90 Calcium 9.2 D Lvmb-0-Jtimavknxwyhq 3.97 H Abnorm Protein Band 1 TNP Abnorm Protein Band 2 TNP Abnorm Protein Band 3 TNP IgG Total IgA Total IgM VICENTE Interpretation Anti-Smooth Muscle Ab A.phagocytophil DNA PCR NOT DETECTED Babesia microti DNA PCR NOT DETECTED Borrelia sp DNA (PCR) NOT DETECTED Borrelia miyamotoi (PCR) NOT DETECTED E.chaffeensis DNA (PCR) NOT DETECTED Tick-borne Disease PCR SEE NOTE Microbiology Microbiology Results: Microbiology 08/17/23 20:45 Blood - Venous Blood Culture - Preliminary No growth after 48 hours. 08/17/23 20:45 Blood - Venous Blood Culture - Preliminary No growth after 48 hours. 08/17/23 23:20 Urine clean catch - Urine bray top Urine Culture - Final No growth. Procedures Date of Service Date of Service: 08/22/23 Assessment & Plan Assessment and plan (1) Acute renal failure: Status: Acute Plan JOSETTE likely due to tubular injury W/U in progress No obstruction by imaging Urine output very good No indication for HD ; Renal fn continue to improve Peripheral smear ruled out schistocytes C/W current mangement for now Needs F/U with me in 1 week to 10 days after D/C Progress Note: Quality Stroke Does the patient have a stroke diagnosis?: No
--- NOTE | 2023-08-22 12:56 | HO.PM.IMPN ---
Subjective Subjective Date of Service: 08/23/23 Interval History: acute kidney injury, transaminitis Review of Systems denies new c/o, producing urine Physical Exam Vital Signs: Vital Signs: Last Vital Signs Temp 96.9 F 08/22/23 07:31 Pulse 58 08/22/23 07:31 Resp 18 08/22/23 07:31 BP 146/92 H 08/22/23 07:31 Pulse Ox 98 08/22/23 07:31 O2 Del Method Room Air 08/22/23 07:31 BMI result Body Mass Index 20.2 Appearance: Alert.? Oriented X3.? cvs: rrr, [id number]. res: clear to auscultation ,no rhonchii or wheezing abd: no rebound or guarding ,nt, bs present. ext pulses present , no cyanosis . neuro: axo3 , nonfocal. Objective Data Active Medications Acetaminophen (Acetaminophen 325 Mg Tablet) 650 mg PO Q6H PRN PRN Reason: Pain, Mild (Pain Scale 1-3) Carisoprodol (Carisoprodol 350 Mg Tablet) 175 mg PO TID PRN PRN Reason: low back pain Last Admin: 08/21/23 22:06 Dose: 175 mg Documented By: THANG Clonazepam (Clonazepam 0.5 Mg Tablet) 0.5 mg PO BID PRN PRN Reason: Anxiety Last Admin: 08/21/23 20:25 Dose: 0.5 mg Documented By: THANG Nifedipine (Nifedipine Er 30 Mg Tab.Er.24) 30 mg PO DAILY [facility]; Protocol Last Admin: 08/22/23 08:43 Dose: 30 mg Documented By: SHAHEED Ondansetron HCl (Ondansetron Hcl 4 Mg/2 Ml Vial) 4 mg IVPUSH Q8H PRN PRN Reason: Nausea and Vomiting Last Admin: 08/20/23 18:29 Dose: 4 mg Documented By: PETRA Polyethylene Glycol (Polyethylene Glycol 3350 17 Gm Powd.Pack) 17 gm PO DAILY [facility] Last Admin: 08/22/23 09:08 Dose: Not Given Documented By: SHAHEED Non-Admin Reason: Patient Refused Senna (Sennosides 8.6 Mg Tablet) 17.2 mg PO BEDTIME PRN PRN Reason: Constipation Sodium Chloride (0.9 % Sodium Chloride Flush 3 Ml Syringe) 3 ml IVFLUSH QSHIFT [facility] Last Admin: 08/22/23 08:46 Dose: 3 ml Documented By: SHAHEED Tramadol HCl (Tramadol Hcl 50 Mg Tablet) 25 mg PO QID [facility] Last Admin: 08/22/23 12:51 Dose: 25 mg Documented By: LAURENCE Labs 08/22/23 05:51 08/23/23 07:55 Labs: Laboratory Results - last 24 hr 08/18/23 08/19/23 08/19/23 08:52 07:58 09:55 Plt Count Haptoglobin Hold Purple Top Fibrinogen [id number] Activity Intrp 0.98 [id number] Inhibitor TNP Anion Gap Estim Creat Clear Calc Estimated GFR Random Glucose Calcium Crxd-7-Pnpmzysiqgdvs Abnorm Protein Band 1 Abnorm Protein Band 2 Abnorm Protein Band 3 IgG Total 768 IgA Total 95 IgM 81 VICENTE Interpretation SEE NOTE Anti-Smooth Muscle Ab <20 A.phagocytophil DNA PCR Babesia microti DNA PCR Borrelia sp DNA (PCR) Borrelia miyamotoi (PCR) E.chaffeensis DNA (PCR) Tick-borne Disease PCR 08/20/23 08/20/23 08/22/23 05:33 09:29 05:51 Plt Count 128 L Haptoglobin 197 Hold Purple Top SEE NOTE Fibrinogen > 700 H [id number] Activity Intrp [id number] Inhibitor Anion Gap 16 Estim Creat Clear Calc 9.9 Estimated GFR 8 Random Glucose 90 Calcium 9.2 D Ddfr-1-Yhailiartwyqk 3.97 H Abnorm Protein Band 1 TNP Abnorm Protein Band 2 TNP Abnorm Protein Band 3 TNP IgG Total IgA Total IgM VICENTE Interpretation Anti-Smooth Muscle Ab A.phagocytophil DNA PCR NOT DETECTED Babesia microti DNA PCR NOT DETECTED Borrelia sp DNA (PCR) NOT DETECTED Borrelia miyamotoi (PCR) NOT DETECTED E.chaffeensis DNA (PCR) NOT DETECTED Tick-borne Disease PCR SEE NOTE Assessment and Plan (1) UTI (urinary tract infection): Status: Acute (2) Transaminitis: Status: Acute (3) Acute renal failure: Status: Acute Assessment and Plan: 58-year-old female with history of hypertension, hypercholesterolemia, hypertriglyceridemia, and chronic low back pain admitted for JOSETTE Acute kidney injury Cr 4.14-->5.47 -->6.82-6.97-5.7 , etiology unclear at this time but probably ATN per 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 Ibuprofen on hold, renal recovery likely lagging but with polyuria and will likely begin to improve per nephro. no indication for HD at this time,ANCA, anti glomerular basement membrane, complement C3/C4, double-stranded DNA, immunofixation panel, lupus anticoagulant panel, EDU pending Plan: producing urine continue IVF per nephro,avoid nephrotoxins,strict I&O follow renal function/lytes,nephrology input appreciated and follow up. Bacteriuria-Initial UA with trace leukocytes, negative nitrites, trace blood, positive urinary sediment, 4+ bacteria blood culture neg@48hrs intial started IV ceftriaxone (initiated 08/17),Discontinued cefuroxime 08/19, urine culture negative repeat UA -seems fine . Acute Pancytopenia-etiology unclear LDH 327, ferritin 3735 slowly improving-WBC 4.3, H/H 10.4/30.55, Platlets also improving ADAMS13 pending, peripheral smear seems no schistocytes. Hem/onc consult noted -moniter cbc since thrombocytopenia improving Acute Hyponatremia:improving to 130 monitre bmp. transaminitis- improving thought to be -?statin induced, MRCP negative for obstructed stone. acetaminophen level undetectable, ethyl alcohol level undetectable, hepatitis panel pending AST/ALT improving plan: Hold crestor GI input appreciated-moniter lft's. HTN- uncontrolled off amlodipine,on Nifedipine 30mg ER. -monitor bp Hyperlipidemia/hypertriglyceridemia-[place] [facility] [place], improved to 660 Lipid panel Tg 680,chol 217 ,hdl 20. hold crestor due to above DVT prophylaxis-hold heparin due to worsening thrombocytopenia. SCP's, ambulation Full code ongoing inpatient stay for management of acute kidney injury and pancytopenia requiring close monitoring of blood count, renal function, electrolytes, and expert consultation to further investigate etiology and guide treatment plan and dispo (4) Pancytopenia: Status: Acute Quality Stroke Does the patient have a stroke diagnosis?: No VTE Prior VTE?: No VTE Risk Level:: Medical - moderate - high VTE Device Contraindication: Treatment Not Indicated VTE Drug Contraindication: N/A - Med Ordered
[2023-08-22] MEDS: carisoprodoL 350 MG TABLET 175 MG PO ×2 (14:14→20:55)
[2023-08-22 15:16] VITALS: BP 130/82; PULSE 62; RESP 18; TEMP 36.6; O2SAT 97
[2023-08-22 19:32] VITALS: BP 130/78; PULSE 56; RESP 18; TEMP 36.4; O2SAT 97
[2023-08-22] MEDS: clonazePAM 0.5 MG TABLET PO (20:55)
[2023-08-23] MEDS: carisoprodoL 350 MG TABLET 175 MG PO (03:30)
[2023-08-23 03:38] VITALS: BP 132/84; PULSE 69; RESP 18; TEMP 36.1; O2SAT 96
[2023-08-23 07:18] LABS: Mitochondrial Antibodies NEGATIVE (NEGATIVE)
[2023-08-23 07:39] VITALS: BP 127/85; PULSE 57; RESP 18; TEMP 35.9; O2SAT 97
[2023-08-23 08:29] LABS: Anion Gap 18 (12-20); Blood Urea Nitrogen 44 mg/dL (9-16); Calcium 9.3 mg/dL (8.4-10.2); Carbon Dioxide 19 mmol/L (22-29); Chloride 106 mmol/L (96-108); Creatinine Clr Calc Pharmacy 12.6; Estimated Glomerular Filt Rate 10; Glucose Random 104 mg/dL (60-115); Potassium 4.7 mmol/L (3.3-5.1); Sodium 138 mmol/L (135-145)
[2023-08-23] MEDS: NIFEdipine ER 30 MG TAB.ER.24 PO (08:30)
[2023-08-23] MEDS: 0.9 % Sodium Chloride Flush 3 ML SYRINGE IVFLUSH (08:32)
[2023-08-23] MEDS: traMADoL HCL 50 MG TABLET 25 MG PO (08:35)
[2023-08-23 09:14] LABS: PEU-Protein Creat Ratio Rand 0.419 (0.024-0.184); PEU-Rand. Prot/Creat Ratio 419 mg/g creat (24-184); PEU-Random Ur. Gamma Globulin 0 %; PEU-Random Urine A1 Globulin 0 %; PEU-Random Urine A2 Globulin 0 %; PEU-Random Urine Albumin 100 %; PEU-Random Urine Beta Globulin 0 %; PEU-Random Urine Creatinine 31 mg/dL (20-275); PEU-Random Urine Protein 13 mg/dL (5-24)
--- NOTE | 2023-08-23 10:04 | PM.PNNEP ---
Subjective Subjective Date of Service: 08/23/23 Interval history: Feels better. UO good. Renal functions improving Physical Exam Vital Signs: Vital Signs: Last Vital Signs Temp 96.7 F L 08/23/23 07:39 Pulse 57 08/23/23 07:39 Resp 18 08/23/23 07:39 BP 127/85 08/23/23 07:39 Pulse Ox 97 08/23/23 07:39 O2 Del Method Room Air 08/23/23 07:39 BMI result Body Mass Index 20.2 Const: General: comfortable and no acute distress Orientation/consciousness: patient oriented x3 HEENT: Head: Yes normocephalic Mouth: Normal oral and palatal mucosa present Eyes: EOM: EOMs intact bilaterally Neck: Neck: Yes supple Resp: Auscultation: clear to auscultation bilaterally Cardio: Jugular venous distension: no JVD Rate: regular rate GI: Palpation (GI): Soft to palpation Auscultation: normal bowel sounds : General: Yes no CVA tenderness Back/Spine/Pelvis: Back: no CVA tenderness Skin: General skin exam: no rashes or lesions noted Neuro: General: patient oriented x3 and moves all extremities Extrem: General: Yes no pedal edema Objective Data Labs 08/22/23 05:51 08/23/23 07:55 Labs: Laboratory Results - last 24 hr 08/19/23 08/20/23 08/22/23 07:58 05:46 05:51 Plt Count 128 L Hold Purple Top Sodium Potassium Chloride Carbon Dioxide Anion Gap BUN Creatinine Estim Creat Clear Calc Estimated GFR Random Glucose Calcium Mitochondrial AB Titer TNP U [place] Prot/Creat Ratio 0.419 H Ur Creatinine mg/dL 31 U Total Protein mg/dL 13 Protein/Creatinin Ratio 419 H Urine Albumin (%) 100 U Zpcxv-4-Yxculzog (%) 0 U Ifask-4-Zgpfxquw (%) 0 U Beta Globulin (%) 0 U Gamma Globulin (%) 0 Urine PEP Interpret SEE NOTE Anti-Mitochondrial Ab NEGATIVE 08/23/23 07:55 Plt Count Hold Purple Top SEE NOTE Sodium 138 Potassium 4.7 Chloride 106 Carbon Dioxide 19 L Anion Gap 18 BUN 44 H Creatinine 4.45 H* Estim Creat Clear Calc 12.6 Estimated GFR 10 Random Glucose 104 Calcium 9.3 Mitochondrial AB Titer U [place] Prot/Creat Ratio Ur Creatinine mg/dL U Total Protein mg/dL Protein/Creatinin Ratio Urine Albumin (%) U Rkdoq-4-Srcnqmfv (%) U Lnbwt-0-Hoafgdqu (%) U Beta Globulin (%) U Gamma Globulin (%) Urine PEP Interpret Anti-Mitochondrial Ab Microbiology Microbiology Results: Microbiology 08/17/23 20:45 Blood - Venous Blood Culture - Final No growth after 5 days. 08/17/23 20:45 Blood - Venous Blood Culture - Final No growth after 5 days. 08/17/23 23:20 Urine clean catch - Urine bray top Urine Culture - Final No growth. Procedures Date of Service Date of Service: 08/23/23 Assessment & Plan Assessment and plan (1) Acute renal failure: Status: Acute Plan JOSETTE likely due to tubular injury W/U in progress No obstruction by imaging Urine output very good Renal fn continue to improve Peripheral smear ruled out schistocytes C/W current mangement for now Needs F/U with me in 1 week to 10 days after D/C Progress Note: Quality Stroke Does the patient have a stroke diagnosis?: No
--- NOTE | 2023-08-23 11:32 | P.DS_ITS ---
DS: Providers Provider Date of Service: 08/23/23 Date of admission: 08/17/23 20:00 Date of discharge: 08/23/23 Primary care physician: Bibi Foster MD Consults: 08/17/23 20:01 Consult to Gastroenterology Routine Consulting Provider: Vince Arrington Reason for consultation: transaminitis, ?statin induced 08/18/23 07:51 Consult to Nephrology Routine Consulting Provider: [facility] Reason for consultation: josette, hyponatremia 08/19/23 09:47 Consult to Hematology / Oncology Routine Consulting Provider: Jessica Monroe Reason for consultation: pnacytopenia Attending physician on discharge: Senthil Lomeli Discharging clinician: Senthil Lomeli DS: Diagnosis Discharge Diagnosis (1) Acute renal failure: Status: Acute (2) Pancytopenia: Status: Acute (3) Transaminitis: Status: Acute DS: Summary Hospital Course Hospital Course: 58-year-old female with history of hypertension, hypercholesterolemia, hypertriglyceridemia, and chronic low back pain presented to the ED earlier today for evaluation of right upper quadrant/epigastric pain ongoing for 2 days with associated nausea and vomiting. She also states that for the last few months she has been experiencing intermittent diarrhea, aching joints, and headaches which she attributed to the rosuvastatin that she was started on about 5 months ago by PCP due to severely elevated triglyceride levels >1100. She states she tried cutting the dose down to 20 mg daily but continued to experience symptoms so she discontinued the medication about 1 week ago. She states her urine has also been cloudy with decreased urine output for the last several days. Denies any fevers, chills, congestion, melena, hematochezia, dyspnea, chest pain, lightheadedness. She does state that it is difficult to take a deep breath due to abdominal pain. She reports only occasional alcohol use and denies any current or prior history of drug use. On arrival, patient has been hypertensive to 169/129, vitals otherwise normal. There is a leukocytosis of 3.1. Creatinine 4.14, baseline 0.7. BUN 38. Sodium 130, chloride 95, CO2 20, electrolytes otherwise normal. AST 2881, ALT 522, alkaline phosphatase 259. Total CK 166. Troponin 3.7, BNP 84. Lipase 53. VBG showed pH 7.30, pCO2 30, bicarb 15. Urinalysis with trace leukocytes, negative nitrites, trace blood, 3+ protein, positive urinary sediment, 4+ bacteria. Acetaminophen level below detectable limits. Ethyl alcohol level below detectable limits. Hepatitis panel pending. Negative for COVID-19 and influenza. Chest x-ray unremarkable. CT abdomen/pelvis shows fatty liver and normal-appearing gallbladder. There is dilated CBD measuring 1.2 cm but no gallstones or common bile duct stone seen on CT. In the ED, has been given Reglan, Benadryl, and 2 L IV NS. Hospital course: Patient was admitted for JOSETTE, pancytopenia, bacteriuria and pyuria, electrolytic abnormalities, transaminitis: Patient JOSETTE was thought to be related to atn due to frequent chcf ibuprofen use outpatient,workup with ANCA, anti glomerular basement membrane, complement C3/C4, double-stranded DNA, immunofixation panel, lupus anticoagulant panel, EDU pending which patient need to follow up outpatient with nephrology/pcp. Bacteria and pyuria: Asymptomatic, urine culture and blood culture negative, producing good amount of urine. Will avoid antibiotic use currently. If new symptoms then UA can be repeated and consider further management outpatient. Hyponatremia seems to be improved with IV fluids. Transaminitis: Thought to be related to statin use, MRCP negative for obstructed stone. acetaminophen level undetectable, ethyl alcohol level undetectable, hepatitis panel -heaptitis B,C screening negative . lfts improving significantly. hold statin until seen by pcp and repeat lipid panel in 1 week, recomended low fat diet ,also consider another medication than statin if needed . Hyperlipidemia/hypertriglyceridemia-Last triglyceride level at [facility] [place] >1100, improved to 660 Lipid panel Tg 680,chol 217 ,hdl 20. hold statin -see above in Transaminitis section. Acute Pancytopenia-etiology unclear :LDH 327, ferritin 3735,ADAMS13 pending,peripheral smear seems no schistocytes. Pancytopenia seems to be improving, discussed with hematology and nephrology - monitor CBC , they will follow up pending tests outpatient. Htn : continue nifedipine 30 mg daily . moniter cbc ,bmp ,lipid panel outpatient. follow up with pcp,nephrology ,hematology outpatient. Assessment and plan coordination time spent 50 minute -patient management was discussed with patient and her in detail length they both understand and in agreement with the plan. Time Attestation Discharge coordination time: Greater than 30 minutes Quality: Safe Use of Opioids Does Pt have an Active Cancer Diagnosis on the Problem List?: No Quality: Stroke Does the patient have a stroke diagnosis?: No Physical Exam Vital Signs: Vital Signs: Last Vital Signs Temp 96.7 F L 08/23/23 07:39 Pulse 57 08/23/23 07:39 Resp 18 08/23/23 07:39 BP 127/85 08/23/23 07:39 Pulse Ox 97 08/23/23 07:39 O2 Del Method Room Air 08/23/23 07:39 BMI result Body Mass Index 20.2 Appearance: Alert.? Oriented X3.? cvs: rrr, [id number]. res: clear to auscultation ,no rhonchii or wheezing abd: no rebound or guarding ,nt, bs present. ext pulses present , no cyanosis . neuro: axo3 , nonfocal. DS: Data Data Completed and Pending Labs on day of discharge: Laboratory Results - last 24 hr 08/19/23 08/20/23 08/23/23 07:58 05:46 07:55 Hold Purple Top SEE NOTE Sodium 138 Potassium 4.7 Chloride 106 Carbon Dioxide 19 L Anion Gap 18 BUN 44 H Creatinine 4.45 H* Estim Creat Clear Calc 12.6 Estimated GFR 10 Random Glucose 104 Calcium 9.3 Mitochondrial AB Titer TNP U Dudley Prot/Creat Ratio 0.419 H Ur Creatinine mg/dL 31 U Total Protein mg/dL 13 Protein/Creatinin Ratio 419 H Urine Albumin (%) 100 U [id number] (%) 0 U Sxrew-1-Gcucbtja (%) 0 U Beta Globulin (%) 0 U Gamma Globulin (%) 0 Urine PEP Interpret SEE NOTE Anti-Mitochondrial Ab NEGATIVE Imaging Chest x-ray: Radiologist's impression: ITS Impressions Chest X-Ray 08/17/23 14:40 IMPRESSION: Unremarkable examination. Abdomen/Pelvis CT 08/17/23 16:58 IMPRESSION: Fatty liver. Normal-appearing gallbladder. Dilated common bile duct measuring 1.2 cm. No gallstone or common bile duct stone seen by CT. Follow-up ultrasound as initial evaluation recommended. Fleischner guidelines were followed. Renal Ultrasound 08/18/23 08:37 IMPRESSION: * No evidence of renal artery stenosis seen. * Bilateral kidneys normal in size and echogenicity with no evidence of hydronephrosis. * Trace bilateral perinephric edema is seen. Renal Ultrasound 08/18/23 08:37 IMPRESSION: * No evidence of renal artery stenosis seen. * Bilateral kidneys normal in size and echogenicity with no evidence of hydronephrosis. * Trace bilateral perinephric edema is seen. Cholangiopancreatography MRI 08/18/23 11:20 IMPRESSION: * Mild intrahepatic and moderate extrahepatic ductal dilatation is seen without evidence of an obstructing stone or mass. The pancreatic duct is at the upper limits of normal in diameter. * Mild hepatomegaly. * Mild perinephric edema, nonspecific. Abdomen Ultrasound 08/18/23 18:09 IMPRESSION: Small volume ascites Discharge Plan Discharge Anticipated Discharge Date/Time: 08/23/23 10:44 Patient Disposition: Home, Self-Care Discharge Diagnosis: josette,pancytopenia ,elevated lft's Referrals: Bibi Foster MD [Primary Care Provider] - 1 Week Teto Mejía MD [Physician] - 1 Week Jessica Monroe MD [Physician] - 1 Week Discharge Medications: New nifedipine 30 mg Tablet Extended Release 24hr 30 mg PO DAILY Qty: 90 0RF Protocol: Hold for SBP< HOLD for SBP < : 90 Continued carisoprodol 350 mg tablet 175 mg PO TID PRN (Reason: low back pain) tramadol 50 mg tablet 25 mg PO TID-QID clonazepam 0.5 mg tablet 0.25 mg PO TID PRN (Reason: anxiety) cyanocobalamin (vitamin B-12) 1,000 mcg/mL solution 1,000 mcg IM QMONTH Discontinued ibuprofen 200 mg Tablet 400 mg PO BID-TID Discharge Orders: Discharge Order (Routine); Ordered 08/23/23 Ordered By: Senthil Lomeli Diet: Low fat, low cholesterol Activity on Discharge: As tolerated Stand Alone Forms: Patient Portal Discharge page Other Ambulatory Orders: Complete Blood Count no Diff (Routine) Timeframe: 1 Week Facility: [facility] - Location: Laboratory Ordered By: Senthil Lomeli Comprehensive Met. Panel (Routine) Timeframe: 1 Week Facility: [facility] - Location: Laboratory Ordered By: Senthil Lomeli Lipid Panel (Routine) Timeframe: 1 Week Facility: [facility] - Location: Laboratory Ordered By: Senthil Lomeli Care Plan Goals: Patient was admitted for JOSETTE, pancytopenia, bacteriuria and pyuria, electrolytic abnormalities, transaminitis: Patient JOSETTE was thought to be related to atn due to frequent chcf ibuprofen use outpatient,workup with ANCA, anti glomerular basement membrane, complement C3/C4, double-stranded DNA, immunofi xation panel, lupus anticoagulant panel, EDU pending which patient need to follow up outpatient with nephrology/pcp. Bacteria and pyuria: Asymptomatic, urine culture and blood culture negative, producing good amount of urine. Will avoid antibiotic use currently. If new symptoms then UA can be repeated and consider further management outpatient. Hyponatremia seems to be improved with IV fluids. Transaminitis: Thought to be related to statin use, MRCP negative for obstructed stone. acetaminophen level undetectable, ethyl alcohol level undetectable, hepatitis panel -heaptitis B,C screening negative . lfts improving significantly. hold statin until seen by pcp and repeat lipid panel in 1 week, recomended low fat diet. Acute Pancytopenia-etiology unclear :LDH 327, ferritin 3735,ADAMS13 p ending,peripheral smear seems no schistocytes. Pancytopenia seems to be improving, discussed with hematology and nephrology - monitor CBC , they will follow up pending tests outpatient. Htn : continue nifedipine 30 mg daily . moniter cbc ,bmp ,lipid panel outpatient. follow up with pcp,nephrology ,hematology outpatient. Health Concerns: as above. Plan of Treatment: as above. Assessment: as above.
--- NOTE | 2023-08-23 12:09 | MHC.CM.PN ---
IMM 08/23/23 Patient is discharged to home self care. She has arranged for transportation home.
[2023-08-23 18:43] LABS: DNAds, Crithidia Antibody Negative (Negative)
[2023-08-23 19:08] LABS: Anti Nuclear Antibody Screen NEGATIVE (NEGATIVE)
== END 2023-08-23 11:50 | disposition home or self-care (01) | DRG 683 ==
LOC: HO.ED 20:20 → HO.EDOVER 20:30 → HO.S3 08-18 07:37
PROVIDERS: Internal Medicine; Internal Medicine Gastroenterology; Internal Medicine Medical Oncology; Internal Medicine Nephrology; Physician Assistant; Student in an Organized Health Care Education/Training Program; Admitting Provider Physician Assistant; Emergency Provider Student in an Organized Health Care Education/Training Program; PCP Internal Medicine; Visit Provider Internal Medicine
DX: N17.0 Acute kidney failure with tubular necrosis (principal); D61.818 Other pancytopenia; E87.1 Hypo-osmolality and hyponatremia; M54.59 Other low back pain; G89.29 Other chronic pain; I10 Essential (primary) hypertension; E78.2 Mixed hyperlipidemia; T39.315A Adverse effect of propionic acid derivatives, initial encounter; Z20.822 Contact with and (suspected) exposure to COVID-19; Z79.899 Other long term (current) drug therapy
CPT/HCPCS: 36415; 71045; 74176; 74181; 76705; 76775; 80048; 80053; 80061; 80076; 80143; 80307; 81001; 81003; 82232; 82550; 82570; 82607; 82728; 82746; 82784; 82803; 83010; 83520; 83540; 83615; 83690; 83735; 83880; 84156; 84165; 84166; 84300; 84484; 84550; 85007; 85014; 85018; 85025; 85027; 85045; 85049; 85335; 85384; 85397; 85597; 85598; 85610; 85613; 85730; 85999; 86015; 86021; 86038; 86160; 86255; 86334; 86335; 86381; 86704; 86706; 86709; 86803; 86880; 87040; 87086; 87340; 87468; 87469; 87478; 87484; 87502; 87633; 87635; 87798; 93005; 93975; 99285; J0696; J1170; J1200; J1644; J2405; J2765

== ENCOUNTER → 2023-08-17 13:59 | Outpatient (BNV) | payer MEDICARE, MEDICAID, SELFPAY | PROVIDERS: Admitting Provider Physician Assistant; Emergency Provider Student in an Organized Health Care Education/Training Program; PCP Internal Medicine; Visit Provider Internal Medicine Cardiovascular Disease | DX: R10.10 Upper abdominal pain, unspecified (principal); R74.01 Elevation of levels of liver transaminase levels; N17.9 Acute kidney failure, unspecified | CPT/HCPCS: 93010 ==

== ENCOUNTER → 2023-08-17 20:00 | Outpatient (BNV) | payer MEDICARE, MEDICAID, SELFPAY | PROVIDERS: Admitting Provider Physician Assistant; Emergency Provider Student in an Organized Health Care Education/Training Program; PCP Internal Medicine; Visit Provider Physician Assistant | DX: N39.0 Urinary tract infection, site not specified (principal); R74.01 Elevation of levels of liver transaminase levels; N17.9 Acute kidney failure, unspecified | CPT/HCPCS: 99223; 99231; 99232; 99233; 99239; 99499 ==

== ENCOUNTER → 2023-08-17 20:00 | Outpatient (BNV) | payer MEDICARE, MEDICAID, SELFPAY | PROVIDERS: Admitting Provider Physician Assistant; Emergency Provider Student in an Organized Health Care Education/Training Program; PCP Internal Medicine; Visit Provider Internal Medicine Medical Oncology | DX: D61.818 Other pancytopenia (principal); N17.9 Acute kidney failure, unspecified | CPT/HCPCS: 99222 ==

== ENCOUNTER → 2023-08-17 20:00 | Outpatient (BNV) | payer MEDICARE, MEDICAID, SELFPAY | PROVIDERS: Admitting Provider Physician Assistant; Emergency Provider Student in an Organized Health Care Education/Training Program; PCP Internal Medicine; Visit Provider Internal Medicine Nephrology | DX: N17.9 Acute kidney failure, unspecified (principal) | CPT/HCPCS: 99222; 99232; 99499 ==

== ENCOUNTER 2023-08-27 17:00 | Outpatient (REF) | payer MEDICARE, MEDICAID, SELFPAY ==
[2023-08-27 18:05] LABS: Anion Gap 13 (12-20); Blood Urea Nitrogen 32 mg/dL (9-16); Carbon Dioxide 25 mmol/L (22-29); Chloride 103 mmol/L (96-108); Estimated Glomerular Filt Rate 27; Sodium 136 mmol/L (135-145)
== END 2023-08-27 17:01 | disposition home or self-care (01) ==
LOC: HO.LAB 17:00
PROVIDERS: PCP Internal Medicine; Visit Provider Internal Medicine Nephrology
DX: N17.9 Acute kidney failure, unspecified (principal); R10.9 Unspecified abdominal pain
CPT/HCPCS: 36415; 80051; 82565; 84520; 87086

== ENCOUNTER 2023-08-30 16:13 | Outpatient (REF) | payer OTHER, SELFPAY ==
[2023-08-30 17:38] LABS: Hematocrit 33.2 % (37.0-47.0); Hemoglobin 10.9 g/dl (12.0-16.0); Mean Corpuscular HGB Conc 32.8 g/dl (31.0-35.0); Mean Corpuscular Hemoglobin 31.8 pg (27.0-33.0); Mean Corpuscular Volume 96.8 fL (80.0-98.0); Mean Platelet Volume 11.1 fL (9.4-12.3); Platelet Count 459 X10*3/uL (160-400); Red Blood Count 3.43 X10*6/uL (4.20-5.50); Red Cell Distribution Width 12.8 % (11.0-16.0); White Blood Count 5.2 X10*3/uL (4.8-10.8)
[2023-08-30 18:07] LABS: Alanine Aminotransferase 27 U/L (0-31); Albumin Level 4.6 g/dL (3.5-5.0); Alkaline Phosphatase 111 U/L (39-117); Anion Gap 18 (12-20); Aspartate Amino Transferase 64 U/L (5-31); Bilirubin Total 0.4 mg/dL (0.0-1.0); Blood Urea Nitrogen 29 mg/dL (9-16); Calcium 9.8 mg/dL (8.4-10.2); Carbon Dioxide 25 mmol/L (22-29); Chloride 100 mmol/L (96-108); Cholesterol 202 mg/dL (<200); Estimated Glomerular Filt Rate 35; Glucose Random 83 mg/dL (60-115); HDL Cholesterol 31 mg/dL (>40); LDL Cholesterol Calculated 134 mg/dL (<100); Potassium 4.2 mmol/L (3.3-5.1); Sodium 139 mmol/L (135-145); Total Protein 7.4 g/dL (6.5-8.0); Triglycerides 188 mg/dL (<150)
== END 2023-08-30 16:14 | disposition home or self-care (01) ==
LOC: HO.LAB 16:13
PROVIDERS: Internal Medicine Nephrology; Visit Provider Internal Medicine
DX: N17.9 Acute kidney failure, unspecified (principal); R74.01 Elevation of levels of liver transaminase levels; D61.818 Other pancytopenia
CPT/HCPCS: 36415; 80053; 80061; 85027

== ENCOUNTER 2023-09-04 14:18 | Outpatient (AMB) | payer OTHER, SELFPAY ==
[2023-09-04 14:46] VITALS: BP 134/80; PULSE 70; O2SAT 97; BMI 22.5
--- NOTE | 2023-09-04 14:46 | HO.NEPHOV ---
HPI HPI Comments History of Present Illness Details 58-year-old female with history of hypertension, hypercholesterolemia, hypertriglyceridemia, and chronic low back pain presented to the ER for evaluation of right upper quadrant/epigastric pain ongoing for 2 days with associated nausea and vomiting. She has been experiencing intermittent diarrhea, aching joints, and headaches which she attributed to the rosuvastatin that she was started on about 5 months ago by PCP due to severely elevated triglyceride levels >1100. She states she tried cutting the dose down to 20 mg daily but continued to experience symptoms so she discontinued the medication about 1 week ago prior to arrival to the ER. She also had cloudy urine with decreased urine output for the last several days. She denied any fevers, chills, congestion, melena, hematochezia, dyspnea, chest pain, lightheadedness. She reports only occasional alcohol use and denies any current or prior history of drug use. Her serum creatinine was 4.14 at presentation from a baseline 0.7. Her AST was 2881, ALT 522, alkaline phosphatase 259. She was negative for COVID-19 and influenza. Her Chest x-ray was unremarkable. CT abdomen/pelvis shows fatty liver and normal-appearing gallbladder. She was admitted for further management. Her JOSETTE was thought to be related to ATN. Her renal functions improved with supportive care and she did not need any renal replacement. She is seen today in the office in follow-up. She feels improved and is back to work. She does not have any chest pain, shortness of breath, paroxysmal nocturnal dyspnea, orthopnea, pedal edema, hematuria or orthostatic symptoms. Her serum creatinine has been steadily improving. [facility] Medical History (Updated 09/17/23 @ 21:20 by Teto Mejía MD) Cystocele with rectocele Chronic low back pain Hypertriglyceridemia Hyperlipidemia HTN (hypertension) Surgical History (Updated 09/04/23 @ 14:52 by Arabella Raymond MA) History of hernia repair History of back surgery Family History (Updated 09/04/23 @ 14:52 by Arabella Raymond MA) Father A-fib Social History (Updated 09/04/23 @ 14:52 by Arabella Raymond MA) Household Members: Spouse Housing: Apartment Do you presently have visiting nurse or other home services: No Alcohol intake: never Patient Tobacco Use Status: Never used Tobacco service: No Vital Signs 09/04/23 14:46 Height 5 ft 0.5 in Weight 117 lb BMI 22.5 BP 134/80 Blood Pressure Location Lt brachial Position Sitting Pulse 70 Pulse Source Pulse Oximeter Pulse Oximetry (%) 97 Oxygen Delivery Method Room Air Physical Exam Vital Signs: Last Vital Signs Pulse 70 09/04/23 14:46 BP 134/80 09/04/23 14:46 Pulse Ox 97 09/04/23 14:46 Oxygen Delivery Method Room Air 09/04/23 14:46 BMI result Body Mass Index 22.5 Const General: comfortable and no acute distress Orientation/consciousness: patient oriented x3 HEENT Head: Yes normocephalic Mouth: Normal oral and palatal mucosa present Eyes EOM: EOMs intact bilaterally Neck Neck: Yes supple Resp Auscultation: clear to auscultation bilaterally Cardio Jugular venous distension: no JVD Rate: regular rate GI Palpation (GI): Soft to palpation Auscultation: normal bowel sounds General: Yes no CVA tenderness Back/Spine/Pelvis Back: no CVA tenderness Skin General skin exam: no rashes or lesions noted Neuro General: patient oriented x3 and moves all extremities Assessment & Plan Assessment & Plan (1) Acute renal failure: Code(s): N17.9 - Acute kidney failure, unspecified Qualifiers: Acute renal failure type: unspecified Qualified Code(s): N17.9 - Acute kidney failure, unspecified (2) HTN (hypertension): Code(s): I10 - Essential (primary) hypertension Qualifiers: Hypertension type: primary hypertension Qualified Code(s): I10 - Essential (primary) hypertension Plan JOSETTE likely due to tubular injury W/U has been negative to date No obstruction by imaging Urine output very good Renal fn continue to improve Peripheral smear ruled out schistocytes Blood pressure at goal on current medication regimen She will be a candidate for KATLIN inhibitors/ARB once renal functions are back to normal C/W current management for now; all questions answered. Follow-up blood work ordered. Orders: Orders Electrolytes 09/04/23 N17.9 - Acute kidney failure, unspecified, I10 - Essential (primary) hypertension Creatinine 09/04/23 N17.9 - Acute kidney failure, unspecified, I10 - Essential (primary) hypertension Blood Urea Nitrogen 09/04/23 N17.9 - Acute kidney failure, unspecified, I10 - Essential (primary) hypertension Protein Creatinine Ratio, Ur 09/04/23 N17.9 - Acute kidney failure, unspecified, I10 - Essential (primary) hypertension Medications: New nifedipine ER 30 mg PO DAILY 90 tabs 3RF Discontinued nifedipine ER Discontinued Reason: Doctor's Order 30 mg See Protocol PO DAILY 90 tabs 0RF Coding Level of Care Code Est Pt Level 4 (80798) Diagnoses Acute renal failure, unspecified acute renal failure type N17.9 Acute renal failure type: unspecified Primary hypertension I10 Hypertension type: primary hypertension Results Reviewed Nephrology Results: Hgb 10.9 g/dl (12.0-16.0) L 08/30/23 WBC 5.2 X10*3/uL (4.8-10.8) 08/30/23 Plt Count 459 X10*3/uL (160-400) H 08/30/23 Sodium 139 mmol/L (135-145) 08/30/23 Potassium 4.2 mmol/L (3.3-5.1) 08/30/23 Chloride 100 mmol/L (96-108) 08/30/23 Carbon Dioxide 25 mmol/L (22-29) 08/30/23 BUN 29 mg/dL (9-16) H 08/30/23 Creatinine 1.53 mg/dL (0.5-1.4) H 08/30/23 Calcium 9.8 mg/dL (8.4-10.2) 08/30/23 Urine Protein Trace mg/dL (Neg-Trace) 08/19/23 Urine Creatinine 20.00 mg/dL 08/17/23 Protein/Creatinin Ratio 419 mg/g creat (24-184) H 08/20/23 Renal US 08/18/23
== END 2023-09-04 15:13 | disposition home or self-care (01) ==
PROVIDERS: PCP Internal Medicine; Visit Provider Internal Medicine Nephrology
DX: N17.9 Acute kidney failure, unspecified (principal); I10 Essential (primary) hypertension
CPT/HCPCS: 99214

== ENCOUNTER → 2023-09-04 14:18 | Outpatient (BNVA) | payer OTHER, MEDICAID, SELFPAY | PROVIDERS: PCP Internal Medicine; Visit Provider Internal Medicine Nephrology | DX: N17.9 Acute kidney failure, unspecified (principal); I10 Essential (primary) hypertension | CPT/HCPCS: 99212 ==

== ENCOUNTER → 2023-10-09 09:10 | Outpatient (BNVA) | payer OTHER, SELFPAY | PROVIDERS: PCP Internal Medicine; Visit Provider Internal Medicine Nephrology ==

== ENCOUNTER → 2023-10-10 11:28 | Outpatient (BNVA) | payer OTHER, SELFPAY | PROVIDERS: PCP Internal Medicine; Visit Provider Internal Medicine Nephrology ==

== ENCOUNTER 2023-10-31 08:25 | Outpatient (REF) | payer OTHER, SELFPAY ==
--- NOTE | ~2023-10-31 | XR_ITS ---
EXAMINATION: XR LUMBOSACRAL SPINE WITH OBLIQUES CLINICAL INFORMATION: Patient states chronic low back pain and feeling of vertebra slipping. Patient states previous lumbar fusion. COMPARISON: CT scan abdomen and pelvis 08/17/2023. TECHNIQUE: AP, lateral neutral, flexion, extension and spot views of the lumbosacral spine. FINDINGS: Mild levoscoliosis of the lumbar spine. The bones are diffusely demineralized. Posterior fusion with bilateral rods and pedicular screws as well as disc spacer at L3-L4. Hardware appears intact. Redemonstration of postsurgical changes at L4-S1 levels, better characterized on CT scan of 08/17/2023. Poor visualization of lower lumbar vertebral bodies levels, possibly related to postsurgical change and/or underlying demineralization/destructive process, difficult to characterize due to limited visualization. Multiple sutures and clips overlying the lumbosacral spine. Facet arthritis in the lower lumbar spine. Mild spondylosis L1-L2 and L2-L3. XR/XR lumbar spine 4V min IMPRESSION: 1. Posterior fusion with bilateral rods and pedicular screws as well as disc spacer at L3-L4. Hardware appears intact. 2. Redemonstration of postsurgical changes at L4-S1 levels, better characterized on CT scan of 08/17/2023. Poor visualization of lower lumbar vertebral bodies levels, possibly related to postsurgical change and/or underlying demineralization/destructive process, difficult to characterize due to limited visualization. Correlation with clinical exam and surgical history recommended to determine further management.
== END 2023-10-31 08:26 | disposition home or self-care (01) ==
LOC: HO.XRAY 08:25
PROVIDERS: PCP Internal Medicine; Visit Provider Psychiatry & Neurology Neurology
DX: M54.51 Vertebrogenic low back pain (principal)
CPT/HCPCS: 72110

== ENCOUNTER 2023-11-04 07:48 | Outpatient (REF) | payer OTHER, SELFPAY ==
[2023-11-04 08:48] LABS: Anion Gap 16 (12-20); Blood Urea Nitrogen 12 mg/dL (9-16); Carbon Dioxide 25 mmol/L (22-29); Chloride 103 mmol/L (96-108); Estimated Glomerular Filt Rate > 60; Potassium 3.8 mmol/L (3.3-5.1); Sodium 140 mmol/L (135-145)
[2023-11-04 09:58] LABS: Creatinine Urine 19.97 mg/dL; Total Protein Urine Random < 7 mg/dL (<12)
== END 2023-11-04 07:49 | disposition home or self-care (01) ==
LOC: HO.LAB 07:48
PROVIDERS: PCP Internal Medicine; Visit Provider Internal Medicine Nephrology
DX: I10 Essential (primary) hypertension (principal); N17.9 Acute kidney failure, unspecified
CPT/HCPCS: 36415; 80051; 82565; 82570; 84156; 84520

== ENCOUNTER 2023-11-06 15:57 | Outpatient (AMB) | payer OTHER, SELFPAY ==
[2023-11-06 16:02] VITALS: BP 150/86; PULSE 96; O2SAT 94; BMI 23.8
--- NOTE | 2023-11-06 16:02 | HO.NEPHOV ---
Vital Signs 11/06/23 16:02 Height 5 ft 0.5 in Weight 124 lb BMI 23.8 BP 150/86 H Blood Pressure Location Rt brachial Position Sitting Pulse 96 Pulse Source Pulse Oximeter Pulse Oximetry (%) 94 Oxygen Delivery Method Room Air Intake Visit Reasons: CKD/ Confirmed [employer] Required: No Accompanied by: Self / Same As Patient Allergies morphine Adverse Reaction (Verified 11/06/23 16:03) Itching HPI Comments Details: 58-year-old female with history of hypertension, hypercholesterolemia, hypertriglyceridemia, and chronic low back pain presented to the ER for evaluation of right upper quadrant/epigastric pain ongoing for 2 days with associated nausea and vomiting. She has been experiencing intermittent diarrhea, aching joints, and headaches which she attributed to the rosuvastatin that she was started on about 5 months ago by PCP due to severely elevated triglyceride levels >1100. She states she tried cutting the dose down to 20 mg daily but continued to experience symptoms so she discontinued the medication about 1 week ago prior to arrival to the ER. She also had cloudy urine with decreased urine output for the last several days. She denied any fevers, chills, congestion, melena, hematochezia, dyspnea, chest pain, lightheadedness. She reports only occasional alcohol use and denies any current or prior history of drug use. Her serum creatinine was 4.14 at presentation from a baseline 0.7. Her AST was 2881, ALT 522, alkaline phosphatase 259. She was negative for COVID-19 and influenza. Her Chest x-ray was unremarkable. CT abdomen/pelvis shows fatty liver and normal-appearing gallbladder. She was admitted for further management. Her JOSETTE was thought to be related to ATN. Her renal functions improved with supportive care and she did not need any renal replacement. She is seen today in the office in follow-up. She feels improved and is back to work. She does not have any chest pain, shortness of breath, paroxysmal nocturnal dyspnea, orthopnea, pedal edema, hematuria or orthostatic symptoms. Her serum creatinine has improved to baseline. She feels shaky in the first hour after Nifedipine. She had a 24 hour BPM which showed sub optimally controlled BP. She also complains of tachycardia. She had a 48 hour Holter, results pending. [facility] Medical History (Updated 11/06/23 @ 16:42 by Teto Mejía MD) Cystocele with rectocele Chronic low back pain Hypertriglyceridemia Hyperlipidemia HTN (hypertension) Surgical History (Updated 09/04/23 @ 14:52 by Arabella Raymond MA) History of hernia repair History of back surgery Family History (Updated 09/04/23 @ 14:52 by Arabella Raymond MA) Father A-fib Social History (Updated 09/04/23 @ 14:52 by Arabella Raymond MA) Household Members: Spouse Housing: Apartment Do you presently have visiting nurse or other home services: No Alcohol intake: never Patient Tobacco Use Status: Never used Tobacco service: No Physical Exam Vital Signs: Last Vital Signs Pulse 96 11/06/23 16:02 Pulse Ox 94 11/06/23 16:02 Oxygen Delivery Method Room Air 11/06/23 16:02 BMI result Body Mass Index 23.8 Results Reviewed Nephrology Results: Hgb 10.9 g/dl (12.0-16.0) L 08/30/23 WBC 5.2 X10*3/uL (4.8-10.8) 08/30/23 Plt Count 459 X10*3/uL (160-400) H 08/30/23 Sodium 140 mmol/L (135-145) 11/04/23 Potassium 3.8 mmol/L (3.3-5.1) 11/04/23 Chloride 103 mmol/L (96-108) 11/04/23 Carbon Dioxide 25 mmol/L (22-29) 11/04/23 BUN 12 mg/dL (9-16) 11/04/23 Creatinine 0.73 mg/dL (0.5-1.4) 11/04/23 Calcium 9.8 mg/dL (8.4-10.2) 08/30/23 Urine Creatinine 19.97 mg/dL 11/04/23 Protein/Creatinin Ratio TNP 11/04/23 Assessment & Plan Assessment & Plan (1) HTN (hypertension): Code(s): I10 - Essential (primary) hypertension Category: Medical Qualifiers: Hypertension type: primary hypertension Qualified Code(s): I10 - Essential (primary) hypertension (2) Palpitations: Code(s): R00.2 - Palpitations Category: Medical Plan JOSETTE likely due to tubular injury- resolved W/U has been negative to date No obstruction by imaging Urine output very good No proteinuria Blood pressure at goal on current medication regimen but has edema and tachycardia Discontinued Nifedipine; Ordered Thyroid functions; Started Carvedilol 12.5 mg bid May consider adding KATLIN inhibitors/ARB in the future C/W current management for now; all questions answered. Follow-up given. Orders: Orders TSH reflex Free T4 Today I10 - Essential (primary) hypertension, R00.2 - Palpitations Medications: New carvedilol must administer with a meal/food 12.5 mg PO BID 30 tabs 3RF Discontinued nifedipine ER Discontinued Reason: Doctor's Order 30 mg PO DAILY 90 tabs 3RF Coding Level of Care Code Est Pt Level 4 (41211) Diagnoses Primary hypertension I10 Hypertension type: primary hypertension Palpitations R00.2
== END 2023-11-06 16:46 | disposition home or self-care (01) ==
PROVIDERS: PCP Internal Medicine; Visit Provider Internal Medicine Nephrology
DX: I10 Essential (primary) hypertension (principal); R00.2 Palpitations
CPT/HCPCS: 93790; 99214

== ENCOUNTER → 2023-11-06 15:57 | Outpatient (BNVA) | payer OTHER, SELFPAY | PROVIDERS: PCP Internal Medicine; Visit Provider Internal Medicine Nephrology | DX: I10 Essential (primary) hypertension (principal); R00.2 Palpitations | CPT/HCPCS: 99212 ==

== ENCOUNTER 2023-11-11 08:57 | Emergency (ER) | payer OTHER, SELFPAY ==
--- NOTE | ~2023-11-11 | XR_ITS ---
EXAMINATION: XR CHEST CLINICAL INFORMATION: Shortness of breath. COMPARISON: 08/17/2023 TECHNIQUE: 2 views of the chest were obtained. FINDINGS: Airspace disease and consolidation involving the right middle lobe. The left hemithorax is clear. No pleural effusion. Cardiac silhouette is unchanged. XR/XR chest 2V IMPRESSION: Right middle lobe pneumonia. Follow-up until resolution is advised.
[2023-11-11 09:22] VITALS: BP 144/95; PULSE 95; RESP 19; TEMP 36.6; O2SAT 98; BMI 23.4
--- NOTE | 2023-11-11 09:28 | ECG_ITS ---
Test Reason : sob Blood Pressure : / mmHG Vent. Rate : 088 BPM Atrial Rate : 088 BPM P-R Int : 134 ms QRS Dur : 078 ms QT Int : 338 ms P-R-T Axes : 063 016 044 degrees QTc Int : 408 ms Normal sinus rhythm Possible Left atrial enlargement Borderline ECG When compared with ECG of 17-AUG-2023 14:11, No significant change was found Referred By: Generic ED Physician Electronically Signed By:KRISTI PHAN MD
--- OUTSIDE RECORDS SUMMARY | 2023-11-11 09:43 | XMS_ITS | Continuity of Care Document ---
Author Organization [facility] Address [address] [place] [address]- Care Team Providers Care Consulting Database Administrator Name Role Phone Bibi Foster MD Primary Care Physician [place] [facility] [place] 05/02/21 - 06/01/21 [facility] [address] [place], [place] [address] Allergies, Adverse Reactions, Alerts Substance Reaction Severity Status morphine ITCHING DOES NOT WORK Active Immunizations Given and Recorded Vaccine Date Status Refusal Reason influenza virus vaccine, inactivated 1 07/10/19 Gi ariana influenza virus vaccine, inactivated 03/31/15 Give n tetanus-diphtheria toxoids (Td) 2 09/28/14 Given 1Result Comment: [facility]# [id number] pt. tolerated inj. without complications....CO 2Result Comment: [09/28/2014] given without incident.....vs Medications carisoprodol 350 mg oral tablet 350 mg, 1, tablet, By Mouth, 2 times a day, Refills 0, Maintenance, 05/22/21 7:21:00 EST, Partial fill upon patient request if the prescription is for a schedule II opioid drug. Start Date: 05/22/21 Status: Ordered clonazePAM 0.5 mg oral tablet See Instructions, TAKE 1 TABLET BY MOUTH TWICE DAILY NEEDED FOR ANXIETY, # 60 tablet, 2 Refills,Maintenance, 05/02/21 15:24:00 EDT, [facility] #[id number], 153, cm, 02/24/21 15:25:00 EDT, Height, 56.8, kg, 07/10/19 10:40:00 EST, Dry Weight Start Date: 05/02/21 Status: Ordered Imodium A-D 2 mg, By Mouth, Every 4 hours, Refills 0, Maintenance, 12/02/18 14:58:00 EDT Start Date: 12/02/18 Status: Ordered Motrin 400 mg oral tablet 400, mg, 1, tablet, By Mouth, Every 4 hours, 0, 0, 06/03/06 2:00:18, Print YOUNG Number, 51, ConstantIndicator Start Date: 06/03/06 Status: Ordered Multivitamin Daily, 0 Refills, Maintenance, 08/24/20 11:20:00 EST, Partial fill upon patient request if the prescription is for a schedule II opioid drug. Start Date: 08/24/20 Status: Ordered omeprazole 20 mg oral enteric coated capsule 1 capsule = 20 mg, By Mouth, Daily, # 90 capsule, 3 Refills, Maintenance, 08/24/20 11:19:00 EST, ECCapsule, [facility] #[id number], PUT ON FILE, 153, cm, 08/24/20 10:52:00 EST, Height, 56.8, kg, 07/10/19 10:40:00 EST, Dry Weight Start Date: 08/24/20 Status: Ordered syringe and needles syringe and needles, See Instructions, # 3 each, Refills 1, Tot. Refills 1, Maintenance, syringe 3cc needles 25 g X 1 inch for use with b12, 07/15/20 11:27:00 EST, Compound, 153, cm, 06/22/20 8:13:00EST, Height, 56.8, kg, 07/10/19 10:40:00 EST, Dry... 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
--- OUTSIDE RECORDS SUMMARY | 2023-11-11 09:43 | XMS_ITS | Continuity of Care Document ---
Author Organization [facility] Address [address] [place] [address]- Care Team Providers Care Vortex Operator Name Role Phone Bibi Foster MD Primary Care Physician [phone] [place] [facility] [place]24[place] - 02/21/20 [facility] [address] [place] [address]- [facility] Attending Physician: Bibi Foster MD Allergies, Adverse Reactions, Alerts Substance Reaction Severity Status morphine ITCHING DOES NOT WORK Active Immunizations Given and Recorded Vaccine Date Status Refusal Reason influenza virus vaccine, inactivated 1 07/10/19 Gi ariana influenza virus vaccine, inactivated 03/31/15 Give n tetanus-diphtheria toxoids (Td) 2 09/28/14 Given 1Result Comment: [facility]# [id number] pt. tolerated inj. without complications....CO 2Result Comment: [09/28/2014] given without incident.....vs Medications aspirin 325 mg oral tablet 325 mg, 1, tablet, By Mouth, Every 4 hours, PRN, Refills 0, Maintenance, Pain , Moderate, 02/16/20 7:35:00 EDT Start Date: 02/16/20 Status: Ordered clonazePAM 0.5 mg oral tablet See Instructions, TAKE 1 TABLET BY MOUTH TWICE DAILY NEEDED FOR ANXIETY, # 60 tablet, 2 Refills,Maintenance, 12/07/19 17:03:00 EDT, [facility] #[id number], 153, cm, 07/10/19 11:20:00 EST, Height, 56.8, kg, 07/10/19 10:40:00 EST, Dry Weight Start Date: 12/07/19 Status: Ordered cyanocobalamin 1000 mcg/ml injectable solution See Instructions, INJECT 1 ML IN THE MUSCLE EVERY 30 DAYS, # 1 mL, 3 Refills, Maintenance, [facility] #48845, 153, cm, 07/10/19 11:20:00 EST, Height, 56.8, kg, 07/10/19 10:40:00 EST, Dry Weight Start Date: 09/07/19 Status: Ordered Imodium A-D 2 mg, By Mouth, Every 4 hours, Refills 0, Maintenance, 12/02/18 14:58:00 EDT Start Date: 12/02/18 Status: Ordered Motrin 400 mg oral tablet 400, mg, 1, tablet, By Mouth, Every 4 hours, 0, 0, 06/03/06 2:00:18, Print YOUNG Number, 51, ConstantIndicator Start Date: 06/03/06 Status: Ordered omeprazole 20 mg oral enteric coated capsule 1 capsule = 20 mg, By Mouth, Daily, # 90 capsule, 2 Refills, Maintenance, 07/10/19 11:24:00 EST, ECCapsule, [facility] #[id number], PUT ON FILE, 153, cm, 07/10/19 11:20:00 EST, Height, 56.8, kg, 07/10/19 10:40:00 EST, Dry Weight Start Date: 07/10/19 Status: Ordered Soma 350 mg oral tablet 350 mg, 1, tablet, By Mouth, Daily at bedtime, Refills 0, Maintenance, 12/02/18 14:55:31 EDT Start Date: 12/02/18 Status: Ordered syringe and needles syringe and needles, See Instructions, # 3 each, Refills 1, Tot. Refills 1, Maintenance, syringe 3cc needles 25 g X 1 inch for use with b12, 12/07/19 13:01:00 EDT, Compound, 153, cm, 07/10/19 11:20:00 EST, Height, 56.8, kg, 07/10/19 10:40:00 EST, Dry... 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
--- OUTSIDE RECORDS SUMMARY | 2023-11-11 09:43 | XMS_ITS | Continuity of Care Document ---
Author Organization [facility] Address [address] [place] [address]- Care Team Providers Care Chemical Lab Supervisor Name Role Phone Bibi Foster MD Primary Care Physician Encounter [facility] [place] Date(s): 03/21/23 - 04/20/23 [facility] [address] [place], [place] [address] Allergies, Adverse Reactions, Alerts Substance Reaction Severity Status morphine ITCHING DOES NOT WORK Active Immunizations Given and Recorded Vaccine Date Status Refusal Reason influenza virus vaccine, inactivated 04/23/22 Give n influenza virus vaccine, inactivated 1 07/10/19 Gi ariana influenza virus vaccine, inactivated 03/31/15 Give n tetanus-diphtheria toxoids (Td) 2 09/28/14 Given 1Result Comment: [facility]# [address]-61 pt. tolerated inj. without complications....CO 2Result Comment: [...] TABLET BY MOUTH TWICE DAILY NEEDED FOR ANXIETY fill when due, # 60 tablet, 2 Refills, Maintenance, 12/07/22 12:34:00 EDT, [facility] #[id number], 153, cm, 11/09/22 18:01:00 EDT, Height Start Date: 12/07/22 Status: Ordered clonazePAM 0.5 mg oral tablet See Instructions, TAKE 1 TABLET BY MOUTH TWICE DAILY NEEDED FOR ANXIETY fill when due [facility], # 14 tablet, 0 Refills, Maintenance, 03/22/23 16:00:00 EDT, [facility] #60462, 153, cm, 03/14/23 11:14:00 EDT, Height Start Date: 03/22/23 Status: Ordered clonazePAM 1 mg oral tablet 0.5 tablet = 0.5 mg, By Mouth, 2 times a day, To replace 0.5 mg tablet due to back order., # 30 tablet, 0 Refills, Maintenance, 04/16/23 16:20:00 EDT, [facility] #77217, Partial fill upon patient request if the prescription is for a schedule... Start Date: 04/16/23 Stop Date: 04/23/23 Status: Ordered Crestor 40 mg oral tablet 1 tablet = 40 mg, By Mouth, Daily, # 90 tablet, 2 Refills, Maintenance, 04/05/23 16:20:00 EDT, Tablet, [facility] #[id number], Partial fill upon patient request if the prescription is for a schedule II opioid drug., 153, cm, 04/05/23 12:59:00 EDT... Start Date: 04/05/23 Status: Ordered cyanocobalamin 1000 mcg/ml injectable solution See Instructions, INJECT 1 ML IN THE MUSCLE EVERY 30 DAYS, # 1 mL, 11 Refills, Maintenance, 01/08/22 16:04:00 EDT, [facility] #60260, 153, cm, 05/22/21 7:19:00 EST, Height Start Date: 01/08/22 Status: Ordered FLUoxetine 20 mg oral capsule 20 mg, 1, capsule, By Mouth, Daily, # 30 capsule, Refills 3, Tot. Refills 3, Maintenance, 09/19/22 15:11:00 EDT, Route to Pharmacy Electronically, [facility] #[id number], Partial fill upon patient request if the prescription is for a schedule II... Start Date: 09/19/22 Status: Ordered Imodium A-D 2 mg, By [...] mg, By Mouth, Daily, # 90 capsule, 1 Refills, Maintenance, 11/13/22 9:04:00 EDT, EC Capsule, [facility] #84627, PUT ON FILE, 153, cm, 11/09/22 18:01:00 EDT, Height Start Date: 11/13/22 Status: Ordered syringe and needles syringe and needles, See Instructions, # 3 each, Refills 1, Tot. Refills 1, Maintenance, syringe 3cc needles 25 g X 1 inch for use with b12, 01/08/22 16:02:00 EDT, Compound, 153, cm, 05/22/21 7:19:00EST, Height Start Date: 01/08/22 Status: Ordered traMADol 50 mg oral tablet 1 tablet = 50 mg, By Mouth, 2 times a day, 0 Refills, Maintenance, 05/21/19 8:22:21 EST Start Date: 05/21/19 Status: Ordered traZODone 50 mg oral tablet 50 mg, 1, tablet, By Mouth, Daily at bedtime, [facility], OTHER REFILLS TO BE DONE BY REGULAR PRESCRIBER, # 7 tablet, Refills 0, Tot. Refills 0, Maintenance, 03/15/23 15:58:00 EDT, Route to PharmacyElectronically, [facility] #[id number], [place]... Start Date: 03/15/23 Stop Date: 03/22/23 Status: Ordered traZODone 50 mg oral tablet TAKE 1 TABLET BY MOUTH EVERY DAY AT BEDTIME Start Date: 12/15/21 Status: Ordered Problem List Condition Confirmation Course Effective Dates Status H ealth Status Informant Anxiety Confirmed Active Dermatitis Confirmed Active Family history of colon cancer Confirmed Active Greater trochanteric bursitis of left hip Confirmed Active Hip pain Confirmed Active Hyperlipidemia Confirmed Active Lumbar post-laminectomy syndrome Confirmed Active Other Pain Disorders Related to Psychological Factors Confirmed Active Palpitations Confirmed Active *[facility] [phone] 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 Routine medical exam Confirmed Active Failed back surgical syndrome Confirmed Active Sacroiliac dysfunction Confirmed Active Encounter for screening colonoscopy Confirmed Active Varicose vein of leg Confirmed Active Social History Social History Type Response Smoking Status Never smoker entered on: 07/30/13 Sex Implantable Device List Procedure Provider Procedure Date Device Type Site Repair Hernia Ventral Laparoscopic Jhoan Coppola MD 02/19/18 Unknown Abdomen Device Identifier Serial Number Lot or Batch Number Manufacturing Date Expiration Date Distinct Identification Code MRI Safety Implantable Status Assigning Authority Unknown Unknown [id number] Unknown 10/27/19 Unknown Unknown Active Unknown Patient Care team information Care Team Personnel Name: Bibi Foster MD Position: [facility] Physician - Primary Care Member Role: PCP Address: Address: [address] [place] [address]- Care Team Related Persons Name: DANIELLE AVILES Address: [address] [place] [address] Name: ABHIJEET TAI Address: [address] [place] [address] Name: JUANITO THOMAS Address: home [address] [place] [address] Name: SATISH FRANCES Address: [address] [place] [address]
--- OUTSIDE RECORDS SUMMARY | 2023-11-11 09:43 | XMS_ITS | Continuity of Care Document ---
Author Organization [facility] Address [address] [place] [address]- Care Team Providers Care Kayak Maker Name Role Phone Bibi Foster MD Primary Care Physician [phone] Encounter [facility] [id number] Date(s): 03/11/19 - 07/09/19 [facility] [address] [place] [address]- [facility] Attending Physician: Bibi Foster MD Allergies, Adverse Reactions, Alerts Substance Reaction Severity Status morphine ITCHING DOES NOT WORK Active Immunizations Given and Recorded Vaccine Date Status Refusal Reason influenza virus vaccine, inactivated 03/31/15 Give n tetanus-diphtheria toxoids (Td) 1 09/28/14 Given 1Result Comment: [09/28/2014] given without incident.....vs Medications Acidophilus Probiotic Blend oral capsule 1 capsule, By Mouth, Daily, # 30 capsule, 5 Refills, Maintenance, 12/02/18 14:58:16 EDT, 1 capsule By Mouth Daily Start Date: 12/02/18 Status: Ordered clonazePAM 0.5 mg oral tablet 1 tablet = 0.5 mg, By Mouth, 2 times a day, PRN Anxiety, # 60 tablet, 3 Refills, Maintenance, 04/07/19 12:10:08 EDT, Tablet Start Date: 04/07/19 Stop Date: 08/05/19 Status: Ordered Compression Stockings See Instructions, # 2 pair, Refills 3, Tot. Refills 3, Maintenance, surgical, knee length 20-30 mm Hg dx:varicose veins, 11/21/17 9:51:51 EDT, Compound Start Date: 11/21/17 Status: Ordered cyanocobalamin 1000 mcg/ml injectable solution 1 mL = 1,000 mcg, Intramuscular, Every 30 days, # 30 mL, 11 Refills, Maintenance, 08/19/18 17:33:49EST, Solution Start Date: 08/19/18 Status: Ordered FLUoxetine 20 mg oral capsule 20 mg, 1, capsule, By Mouth, Daily, # 90 capsule, Refills 1, Tot. Refills 1, Maintenance, 01/30/19 16:03:12 EDT, Route to Pharmacy Electronically, [id number], [facility] #[id number] Start Date: 01/30/19 Status: Ordered Imodium A-D 2 mg, By Mouth, Every 4 hours, Refills 0, Maintenance, 12/02/18 14:58:00 EDT Start Date: 12/02/18 Status: Ordered Motrin 400 mg oral tablet 400, mg, 1, tablet, By Mouth, Every 4 hours, 0, 0, 06/03/06 2:00:18, Print YOUNG Number, 51, ConstantIndicator Start Date: 06/03/06 Status: Ordered NuLYTELY with Flavor Packs oral powder for reconstitution 240 mL, By Mouth, Every 10 minutes, # 1 each, 0 Refills, Maintenance, 11/21/17 16:51:00 EDT, REC Powder, exam is 02/17/2018, 240 mL By Mouth Every 10 minutes Start Date: 11/21/17 Status: Ordered omeprazole 20 mg oral enteric coated capsule 1 capsule = 20 mg, By Mouth, Daily, # 90 capsule, 0 Refills, Maintenance, 05/06/19 12:18:51 EST, ECCapsule, PUT ON FILE Start Date: 05/06/19 Status: Ordered Soma 350 mg oral tablet 350 mg, 1, tablet, By Mouth, Daily at bedtime, Refills 0, Maintenance, 12/02/18 14:55:31 EDT Start Date: 12/02/18 Status: Ordered syringe and needles syringe and needles, See Instructions, # 12 units, Refills 3, Tot. 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
--- OUTSIDE RECORDS SUMMARY | 2023-11-11 09:43 | XMS_ITS | Continuity of Care Document ---
Author Organization [facility] Address [address] [place] [address]- Care Team Providers Care Plant Custodian Name Role Phone Cristian JOHNSTON, Bibi Singh Primary Care Physician [place] [facility] [place] - 06/19/19 [facility] [address] [place] [address] Attending Physician: Bebo Donis Admitting Physician: Bebo Donis Referring Physician: Bebo Donis Allergies, Adverse Reactions, Alerts Substance Reaction Severity [...] 01/30/19 16:03:12 EDT, Route to Pharmacy Electronically, [id number], [facility] #[id number] Start Date: 01/30/19 Status: Ordered Imodium A-D [...] 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
--- OUTSIDE RECORDS SUMMARY | 2023-11-11 09:43 | XMS_ITS | Continuity of Care Document ---
Author Organization [facility] Address [address] [place] [address]- Care Team Providers Care Land Development Project Manager Name Role Phone Bibi Foster MD Primary Care Physician Encounter [facility] [place] Date(s): 07/19/19 - 08/28/[address] [address]- [facility] Attending Physician: Bibi Foster MD Admitting Physician: Bibi Foster MD Referring Physician: Bibi Foster MD Allergies, Adverse Reactions, Alerts Substance Reaction Severity Status morphine ITCHING DOES NOT WORK Active Immunizations Given and Recorded Vaccine Date Status Refusal Reason influenza virus vaccine, inactivated 1 07/10/19 Gi ariana influenza virus vaccine, inactivated 03/31/15 Give n tetanus-diphtheria toxoids (Td) 2 09/28/14 Given 1Result Comment: [facility]# [id number] pt. tolerated inj. 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
--- OUTSIDE RECORDS SUMMARY | 2023-11-11 09:43 | XMS_ITS | Continuity of Care Document ---
Author Organization [facility] Address [address] [place] [address]- Care Team Providers Care Moisture Conditioner Operator Name Role Phone Bibi Foster MD Primary Care Physician Encounter [facility] Date(s): 08/08/20 - 09/07/20 [facility] [address] [place], [place] [address] Allergies, Adverse Reactions, Alerts Substance Reaction Severity Status morphine ITCHING DOES NOT WORK Active Immunizations Given and Recorded Vaccine Date Status Refusal Reason influenza virus vaccine, inactivated 1 07/10/19 Gi ariana influenza virus vaccine, inactivated 03/31/15 Give n tetanus-diphtheria toxoids (Td) 2 09/28/14 Given 1Result Comment: [facility]# [id number] pt. tolerated inj. without complications....CO 2Result Comment: [09/28/2014] given without incident.....vs Medications clonazePAM 0.5 mg oral tablet See Instructions, TAKE 1 TABLET BY MOUTH TWICE DAILY NEEDED FOR ANXIETY, # 60 tablet, 2 Refills,Maintenance, 07/28/20 10:21:00 EST, [facility] #[id number], 153, cm, 06/22/20 8:13:00 EST, Height, 56.8, kg, 07/10/19 10:40:00 EST, Dry Weight Start Date: 07/28/20 Status: Ordered cyanocobalamin 1000 mcg/ml injectable solution See Instructions, INJECT 1 ML IN THE MUSCLE EVERY 30 DAYS, # 1 mL, 11 Refills, Maintenance, 08/29/20 16:23:00 EST, [facility] #[id number], 153, cm, 08/24/20 10:52:00 EST, Height, 56.8, kg, 07/10/19 10:40:00 EST, Dry Weight Start Date: 08/29/20 Status: Ordered Imodium A-D 2 mg, By [...] 3 Refills, Maintenance, 08/24/20 11:19:00 EST, ECCapsule, [facility] #[id number], PUT ON FILE, 153, cm, 08/24/20 10:52:00 EST, Height, 56.8, kg, 07/10/19 10:40:00 EST, Dry Weight Start Date: 08/24/20 Status: Ordered predniSONE 10 mg oral tablet See Instructions, 4 tabs x 2 days, 3 tabs x 2 days, 2 tabs x 2 days, 1 tab x 2 days, # 20 tablet, 0Refills, Acute 09/10/20 11:15:00 EST, 08/24/20 11:13:00 EST, Tablet, [facility] #[id number], Partial fill upon patient request if the prescription... 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
--- OUTSIDE RECORDS SUMMARY | 2023-11-11 09:43 | XMS_ITS | Continuity of Care Document ---
Author Organization [facility] Address [address] [place] [address]- Care Team Providers Care Biological Scientist Name Role Phone Bibi Foster MD Primary Care Physician [phone] Encounter [facility] R [id number] Date(s): 07/10/19 - 07/17/19 [facility] [address] [place] [address]- [facility] Encounter Diagnosis Hip pain(Discharge Diagnosis) - 07/12/19 Dermatitis(Discharge Diagnosis) - 07/12/19 Palpitations(Discharge Diagnosis) - 07/12/19 Attending Physician: Bibi Foster MD Allergies, Adverse Reactions, Alerts Substance Reaction Severity Status morphine ITCHING DOES NOT WORK Active Immunizations Given and Recorded Vaccine Date Status Refusal Reason influenza virus vaccine, inactivated 1 07/10/19 Gi ariana influenza virus vaccine, inactivated 03/31/15 Give n tetanus-diphtheria toxoids (Td) 2 09/28/14 Given 1Result Comment: [facility]# [id number] pt. tolerated inj. without complications....CO 2Result Comment: [...] 01/30/19 16:03:12 EDT, Route to Pharmacy Electronically, [id number], [id number] Start Date: 01/30/19 Status: Ordered Imodium A-D [...] 2 Refills, Maintenance, 07/10/19 11:24:00 EST, ECCapsule, [facility] #[id number], PUT ON FILE, 153, cm, 07/10/19 11:20:00 [...] 8:22:21 EST Start Date: 05/21/19 Status: Ordered triamcinolone 0.1% topical cream 1 application, Topically, 2 times a day, for 14 days, apply a thin film do not use for more than 2 consecutive weeks, # 60 Gm, 0 Refills, Acute 07/24/19 11:08:00 EST, 07/10/19 11:08:00 EST, Cream, [facility] #[id number], 1 application Topicall... 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8 kg (07/10/19 10:40 AM) Oxygen Saturation [94-100 %] 98 % (07/10/19 10:40 AM) Pulse Rate [55-90 bpm] 91 bpm *H* (07/10/19 10:40 AM) Body Mass Index [18.5-24.99] 24.26 (07/10/19 10:40 AM) Blood Pressure [90-138/55-84 mm Hg] 112/ 74mm Hg (07/10/19 11:20 AM) 122/82mm Hg (07/10/19 10:40 AM) Temperature [96.8-100.4 DegF] 98 DegF (07/10/19 10:40 AM) Mode of Delivery (Oxygen) Room air (07/10/19 10:40 AM) Blood pressure sites Arm, right (07/10/19 10:40 AM) Temperature Route Oral (07/10/19 10:40 AM) Dry Weight 56.8 kg (07/10/19 10:40 AM) Weight Obtained Via Standing scale (07/10/19 10:40 AM) Social History Social History Type Response Smoking Status Never smoker entered on: 07/30/13 Sex Medical Equipment Implanted Date:02/19/18Target Site:Abdomen Description Quantity MRI Company Model PATCH HERNIA VENTRALEX LG CI R - BARD ([id number]) [address] BARD Unknown MAIDA:No Information Assigning Authority: FDA
--- OUTSIDE RECORDS SUMMARY | 2023-11-11 09:43 | XMS_ITS | Continuity of Care Document ---
Author Organization [facility] Address [address] [place] [address]- Care Team Providers Care Improvement Nurse Name Role Phone Bibi Foster MD Primary Care Physician Encounter [facility] Date(s): 08/24/22 - 09/23/22 [facility] [address] [place] [address]- Attending Physician: Bebo Donis Admitting Physician: AdmBebo ventura Referring Physician: AdmtrBebo Allergies, Adverse Reactions, Alerts Substance Reaction Severity Status morphine ITCHING DOES NOT WORK Active Immunizations Given and Recorded Vaccine Date Status Refusal Reason influenza virus vaccine, inactivated 04/23/22 Give n influenza virus vaccine, inactivated 1 07/10/19 Gi ariana influenza virus vaccine, inactivated 03/31/15 Give n tetanus-diphtheria toxoids (Td) 2 09/28/14 Given 1Result Comment: [facility]# [id number] pt. tolerated inj. without complications....CO 2Result Comment: [...] due, # 60 tablet, 2 Refills, Maintenance, 09/04/22 16:14:00 EST, [facility] #[id number], 153, cm, 06/22/22 7:55:00 EST, Height Start Date: 09/04/22 Status: Ordered Crestor 40 mg oral tablet 1 tablet = 40 mg, By Mouth, Daily, # 90 tablet, 2 Refills, Maintenance, 04/24/22 12:13:00 EDT, Tablet, [facility] #[id number], Partial fill upon patient request if the prescription is for a schedule II opioid drug., 153, cm, 04/23/22 8:20:00 EDT,... Start Date: 04/24/22 Status: Ordered cyanocobalamin 1000 mcg/ml injectable solution See Instructions, INJECT 1 ML IN THE MUSCLE EVERY 30 DAYS, # 1 mL, 11 Refills, Maintenance, 01/08/22 16:04:00 EDT, [facility] #[id number], 153, cm, 05/22/21 7:19:00 EST, Height Start Date: 01/08/22 Status: Ordered FLUoxetine 20 mg oral capsule 20 mg, 1, capsule, By Mouth, Daily, # 30 capsule, Refills 3, Tot. Refills 3, Maintenance, 09/19/22 15:11:00 EDT, Route to Pharmacy Electronically, [facility] #[id number], Partial fill upon patient request if the [...] Daily, # 90 capsule, 1 Refills, Maintenance, 01/08/22 16:03:00 EDT, ECCapsule, [facility] #53260, PUT ON FILE, 153, cm, 05/22/21 7:19:00 EST, Height Start Date: 01/08/22 Status: Ordered syringe and needles syringe and [...] Family history of colon cancer Confirmed Active Hip pain Confirmed Active Lumbar post-laminectomy syndrome Confirmed Active Other Pain Disorders Related to Psychological Factors Confirmed Active Palpitations Confirmed Active *[facility] [phone] 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 Routine medical exam [...] Safety Implantable Status Assigning Authority Unknown Unknown [id number] Unknown 10/27/19 Unknown Unknown Active Unknown Patient Care team information Care Team Personnel Name: Bibi Foster MD Position: [facility] Primary Care Physician Member Role: PCP Address: Address: [address] [place] [id number] Care Team Related Persons Name: DANIELLE AVILES Address: home [address] [place] [address] Name: ABHIJEET TAI Address: home [address] [place] [address] Name: JUANITO THOMAS Address: home [address] [place] [address] Name: SATISH FRANCES Address: home [address] [place] [address]
--- OUTSIDE RECORDS SUMMARY | 2023-11-11 09:43 | XMS_ITS | Continuity of Care Document ---
Author Organization [facility] Address [address] [place] [address]- Care Team Providers Care Correspondence Section Supervisor Name Role Phone Cristian JOHNSTON, Bibi Singh Primary Care Physician Encounter [facility] Date(s): 10/23/22 - 11/22/22 [facility] [address] [place], [place] [address] Attending Physician: Bebo Donis Admitting Physician: Bebo Donis Referring Physician: AdmtrBebo Allergies, Adverse Reactions, Alerts Substance Reaction Severity Status morphine ITCHING DOES NOT WORK Active Immunizations Given and Recorded Vaccine Date Status Refusal Reason influenza virus vaccine, inactivated 04/23/22 Give n influenza virus vaccine, inactivated 1 07/10/19 Gi ariana influenza virus vaccine, inactivated 03/31/15 Give n tetanus-diphtheria toxoids (Td) 2 09/28/14 Given 1Result Comment: [facility]# [id number] pt. tolerated inj. without complications....CO 2Result Comment: [...] tablet, 2 Refills, Maintenance, 09/04/22 16:14:00 EST, [facility] #[id number], 153, cm, 06/22/22 7:55:00 EST, Height Start Date: 09/04/22 Status: Ordered cyanocobalamin 1000 mcg/ml injectable solution See Instructions, INJECT 1 ML IN THE MUSCLE EVERY 30 DAYS, # 1 mL, 11 Refills, Maintenance, 01/08/22 16:04:00 EDT, [facility] #[id number], 153, cm, 05/22/21 7:19:00 EST, Height Start Date: 01/08/22 Status: Ordered FLUoxetine 20 mg oral capsule 20 mg, 1, capsule, By Mouth, Daily, # 30 capsule, Refills 3, Tot. 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 Routine medical exam [...] Safety Implantable Status Assigning Authority Unknown Unknown [id number] Unknown 10/27/19 Unknown Unknown Active Unknown Laboratory * Event Display: Non Lab Results Authored Date: Patient Care team information Care Team Personnel Name: Bibi Foster MD Position: [facility] Physician - Primary Care Member Role: PCP Address: Address: [address] [place] [address] Care Team Related Persons Name: DANIELLE AVILES Address: home [address] [place] [address] Name: ABHIJEET TAI Address: home [address] [place] [address] Name: JUANITO THOMAS Address: home [address] [place] [address] Name: SATISH FRANCES Address: home [address] [place] [address]
--- OUTSIDE RECORDS SUMMARY | 2023-11-11 09:43 | XMS_ITS | Continuity of Care Document ---
Author Organization [facility] Address [address] [place] [address]- Care Team Providers Care City Planning Engineer Name Role Phone Bibi Foster MD Primary Care Physician [phone] Encounter [facility] Date(s): 07/15/20 - 08/14/20 [facility] [address] [place], [place] [address] Allergies, Adverse Reactions, Alerts Substance Reaction Severity Status morphine ITCHING DOES NOT WORK Active Immunizations Given and Recorded Vaccine Date Status Refusal Reason influenza virus vaccine, inactivated 1 07/10/19 Gi ariana influenza virus vaccine, inactivated 03/31/15 Give n tetanus-diphtheria toxoids (Td) 2 09/28/14 Given 1Result Comment: [facility]# [id number] pt. tolerated inj. without complications....CO 2Result Comment: [09/28/2014] given without incident.....vs Medications clonazePAM 0.5 mg oral tablet See Instructions, TAKE 1 TABLET BY MOUTH TWICE DAILY NEEDED FOR ANXIETY, # 60 tablet, 2 Refills,Maintenance, 07/28/20 10:21:00 EST, [facility] #[id number], 153, cm, 06/22/20 8:13:00 EST, Height, 56.8, kg, 07/10/19 10:40:00 EST, Dry Weight Start Date: 07/28/20 Status: Ordered cyanocobalamin 1000 mcg/ml injectable solution See Instructions, INJECT 1 ML IN THE MUSCLE EVERY 30 DAYS, # 1 mL, 11 Refills, Maintenance, [facility] #53917, 153, cm, 06/22/20 8:13:00 EST, Height, 56.8, kg, 01/10/20 10:40:00 EST, Dry Weight Start Date: 07/15/20 Status: Ordered cyanocobalamin 1000 mcg/ml injectable solution See Instructions, INJECT 1 ML IN THE MUSCLE EVERY 30 DAYS, # 1 mL, 3 Refills, Maintenance, [facility] #80026, 153, cm, 07/10/19 11:20:00 EST, Height, 56.8, [...] Daily, # 90 capsule, 0 Refills, Maintenance, 08/08/20 13:14:00 EST, ECCapsule, [facility] #52206, PUT ON FILE, 153, cm, 06/22/20 8:13:00 EST, Height, 56.8, kg,07/10/19 10:40:00 EST, Dry Weight Start Date: 08/08/20 Status: Ordered Soma 350 mg oral tablet [...] Palpitations(Confirmed) Active *[facility] [phone] 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
--- OUTSIDE RECORDS SUMMARY | 2023-11-11 09:43 | XMS_ITS | Continuity of Care Document ---
Author Organization [facility] Address [address] [place] [address]- Care Team Providers Care Duplicator Punch Set Up Operator Name Role Phone Bibi Foster MD Primary Care Physician Encounter [facility] [place] Date(s): 12/15/21 - 12/22/21 [facility] [address] [place], [place] [address] Encounter Diagnosis Lumbar post-laminectomy syndrome(Discharge Diagnosis) - 12/15/21 Sacroiliac dysfunction(Discharge Diagnosis) - 12/15/21 Anxiety(Discharge Diagnosis) - 12/15/21 Attending Physician: Bibi Foster MD Allergies, Adverse Reactions, Alerts Substance Reaction Severity Status morphine ITCHING DOES NOT WORK Active Immunizations Given and Recorded Vaccine Date Status Refusal Reason influenza virus vaccine, inactivated 1 07/10/19 Gi ariana influenza virus vaccine, inactivated 03/31/15 Give n tetanus-diphtheria toxoids (Td) 2 09/28/14 Given 1Result Comment: [facility]# [id number] pt. tolerated inj. without complications....CO 2Result Comment: [...] DAILY NEEDED FOR ANXIETY, # 60 tablet, 1 Refills,Maintenance, 11/21/21 16:22:00 EDT, [facility] #[id number], 153, cm, 05/22/21 7:19:00 EST, Height Start Date: 11/21/21 Status: Ordered Imodium A-D 2 mg, By [...] 3 Refills, Maintenance, 08/24/20 11:19:00 EST, ECCapsule, [facility] #50573, PUT ON FILE, 153, cm, 08/24/20 10:52:00 [...] Date: 12/15/21 Status: Ordered Problem List Condition Effective Dates Status Health Status Inform ant Anxiety(Confirmed) Active Dermatitis(Confirmed) Active Family history of colon cancer(Confirmed) Active Hip pain(Confirmed) Active Lumbar post-laminectomy syndrome(Confirmed) Active 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) Active Palpitations(Confirmed) Active *[facility] [phone] 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 Routine medical exam(Confirmed) Active Failed back surgical syndrome(Confirmed) Active Sacroiliac dysfunction(Confirmed) Active Encounter for screening colonoscopy(Confirmed) Active Varicose vein of leg(Confirmed) Active Diagnosis Diagnosis Type Effective Dates Health Status Clinical Service Informant Lumbar post-laminectomy syndrome Discharge Diagnosis 12/15/21 Sacroiliac dysfunction Discharge Diagnosis 12/15/21 Anxiety Discharge Diagnosis 12/15/21 Social History Social History Type Response Smoking Status Never smoker entered on: 07/30/13 Sex Medical Equipment Implanted Date:02/19/18Target Site:Abdomen Description Quantity MRI Company Model PATCH HERNIA VENTRALEX LG CI R - BARD ([id number]) [address] BARD Unknown MAIDA:No Information Assigning Authority: FDA
--- OUTSIDE RECORDS SUMMARY | 2023-11-11 09:43 | XMS_ITS | Continuity of Care Document ---
Author Organization [facility] Address [address] [place] [address]- Care Team Providers Care Processing Specialist Name Role Phone Bibi Foster MD Primary Care Physician [phone] Encounter [facility] Date(s): 07/26/23 - 08/28/23 [facility] [address] [place] [address]- Attending Physician: Bibi Foster MD Allergies, Adverse Reactions, Alerts Substance Reaction Severity Status morphine ITCHING DOES NOT WORK Active Immunizations Given and Recorded Vaccine Date Status Refusal Reason influenza virus vaccine, inactivated 04/23/22 Give n influenza virus vaccine, inactivated 1 07/10/19 Gi ariana influenza virus vaccine, inactivated 03/31/15 Give n tetanus-diphtheria toxoids (Td) 2 09/28/14 Given 1Result Comment: [facility]# [id number] pt. tolerated inj. without complications....CO 2Result Comment: [...] due, # 60 tablet, 2 Refills, Maintenance, 05/21/23 15:52:00 EST, [facility] #[id number], 153, cm, 04/05/23 12:59:00 EDT, Height Start Date: 05/21/23 Status: Ordered clonazePAM 0.5 mg oral tablet See Instructions, TAKE 1 TABLET BY MOUTH TWICE DAILY NEEDED FOR ANXIETY fill when due [facility], # 14 tablet, 0 Refills, Maintenance, 03/22/23 16:00:00 EDT, [facility] #[id number], 153, cm, 03/14/23 11:14:00 EDT, Height Start Date: 03/22/23 Status: Ordered clonazePAM 1 mg oral tablet 0.5 tablet = 0.5 mg, By Mouth, 2 times a day, To replace 0.5 mg tablet due to back order., # 30 tablet, 0 Refills, Maintenance, 04/16/23 16:20:00 EDT, [facility] #[id number], Partial fill upon patient request if the prescription is for a schedule... Start Date: 04/16/23 Stop Date: 04/23/23 Status: Ordered Crestor 40 mg oral tablet 1 tablet = 40 mg, By Mouth, Daily, # 90 tablet, 2 Refills, Maintenance, 04/05/23 16:20:00 EDT, Tablet, [facility] #35798, Partial fill upon patient request if the prescription is for a schedule II opioid drug., 153, cm, 04/05/23 12:59:00 EDT... Start Date: 04/05/23 Status: Ordered cyanocobalamin 1000 mcg/ml injectable solution See Instructions, INJECT 1 ML IN THE MUSCLE EVERY 30 DAYS, # 1 mL, 11 Refills, Maintenance, 05/27/23 15:22:00 EST, [facility] #[id number], 153, cm, 04/05/23 12:59:00 EDT, Height Start Date: 05/27/23 Status: Ordered FLUoxetine 20 mg oral capsule 20 mg, 1, capsule, By Mouth, Daily, # 30 capsule, Refills 3, Tot. Refills 3, Maintenance, 09/19/22 15:11:00 EDT, Route to Pharmacy Electronically, [facility] #[id number], Partial fill upon patient request if the [...] Refills, Maintenance, 11/13/22 9:04:00 EDT, EC Capsule, [facility] #[id number], PUT ON FILE, 153, cm, 11/09/22 18:01:00 EDT, Height Start Date: 11/13/22 Status: Ordered syringe and needles syringe and needles, See Instructions, # 3 each, Refills 1, Tot. Refills 1, Maintenance, syringe 3cc needles 25 g X 1 inch for use with b12, 05/27/23 15:22:00 EST, [facility], 153, cm, 04/05/23 12:59:00 EDT, Height Start Date: 05/27/23 Status: Ordered traMADol 50 mg oral tablet [...] Maintenance, 03/15/23 15:58:00 EDT, Route to PharmacyElectronically, [facility] #[id number], Daa... 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 Routine medical exam [...] Safety Implantable Status Assigning Authority Unknown Unknown [id number] Unknown 10/27/19 Unknown Unknown Active Unknown Patient Care team information Care Team Personnel Name: Bibi Foster MD Position: [facility] Physician - Primary Care Member Role: PCP Address: Address: [address] [place] [address] Care Team Related Persons Name: DANIELLE AVILES Address: home [address] [place] [address] Name: ABHIJEET TAI Address: home [address] [place] [address] Name: JUANITO THOMAS Address: [address] [place] [address] Name: SATISH FRANCES Address: home [address] [place] [address]
--- OUTSIDE RECORDS SUMMARY | 2023-11-11 09:43 | XMS_ITS | Continuity of Care Document ---
Author Organization [facility] Address [address] [place] [address]- Care Team Providers Care Sand Plant Attendant Name Role Phone Cristian JOHNSTON, Bibi Singh Primary Care Physician [phone] Encounter [facility] [place] Date(s): 06/26/23 - 07/26/23 [facility] [address] [place], [place] [address] Allergies, Adverse Reactions, Alerts Substance Reaction Severity Status morphine ITCHING DOES NOT WORK Active Immunizations Given and Recorded Vaccine Date Status Refusal Reason influenza virus vaccine, inactivated 04/23/22 Give n influenza virus vaccine, inactivated 1 07/10/19 Gi ariana influenza virus vaccine, inactivated 03/31/15 Give n tetanus-diphtheria toxoids (Td) 2 09/28/14 [facility]: [facility]# [id number] pt. tolerated inj. without complications....CO 2Result Comment: [...] tablet, 2 Refills, Maintenance, 05/21/23 15:52:00 EST, [facility] #[id number], 153, cm, 04/05/23 12:59:00 EDT, Height Start Date: 05/21/23 Status: Ordered clonazePAM 0.5 mg oral tablet See Instructions, TAKE 1 TABLET BY MOUTH TWICE DAILY NEEDED FOR ANXIETY fill when due [facility], # 14 tablet, 0 Refills, Maintenance, 03/22/23 16:00:00 EDT, [facility] #[id number], 153, cm, 03/14/23 11:14:00 EDT, Height Start Date: 03/22/23 Status: Ordered clonazePAM 1 mg oral tablet 0.5 tablet = 0.5 mg, By Mouth, 2 times a day, To replace 0.5 mg tablet due to back order., # 30 tablet, 0 Refills, Maintenance, 04/16/23 16:20:00 EDT, [facility] #[id number], Partial fill upon patient request if the prescription is for a schedule... Start Date: 04/16/23 Stop Date: 04/23/23 Status: Ordered Crestor 40 mg oral tablet 1 tablet = 40 mg, By Mouth, Daily, # 90 tablet, 2 Refills, Maintenance, 04/05/23 16:20:00 EDT, Tablet, [facility] #[id number], Partial fill upon patient request if the prescription is for a schedule II opioid drug., 153, cm, 04/05/23 12:59:00 EDT... Start Date: 04/05/23 Status: Ordered cyanocobalamin 1000 mcg/ml injectable solution See Instructions, INJECT 1 ML IN THE MUSCLE EVERY 30 DAYS, # 1 mL, 11 Refills, Maintenance, 05/27/23 15:22:00 EST, [facility] #[id number], 153, cm, 04/05/23 12:59:00 EDT, Height Start Date: 05/27/23 Status: Ordered FLUoxetine 20 mg oral capsule 20 mg, 1, capsule, By Mouth, Daily, # 30 capsule, Refills 3, Tot. Refills 3, Maintenance, 09/19/22 15:11:00 EDT, Route to Pharmacy Electronically, [facility] #[id number], Partial fill upon patient request if the [...] Refills, Maintenance, 11/13/22 9:04:00 EDT, EC Capsule, [facility] #[id number], PUT ON FILE, 153, cm, 11/09/22 18:01:00 [...] Maintenance, 03/15/23 15:58:00 EDT, Route to PharmacyElectronically, [facility] #[id number], Kirstin... 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 Routine medical exam [...] Safety Implantable Status Assigning Authority Unknown Unknown [id number] Unknown 10/27/19 Unknown Unknown Active Unknown Patient Care team information Care Team Personnel Name: Bibi Foster MD Position: [facility] Physician - Primary Care Member Role: PCP Address: Address: [address] [place] [address]- Care Team Related Persons Name: DANIELLE AVILES Address: home [address] [place] [address] Name: ABHIJEET TAI Address: home [address] [place] [address] Name: JUANITO THOMAS Address: [address] [place] [address] Name: SATISH FRANCES Address: home [address] [place] [address]
--- OUTSIDE RECORDS SUMMARY | 2023-11-11 09:43 | XMS_ITS | Continuity of Care Document ---
Author Organization [facility] Address [address] [place] [address]- Care Team Providers Care Mold Setter Name Role Phone Bibi Foster MD Primary Care Physician [phone] [place] [facility] [place]19 [facility] [address] [place] [address]- [facility] Attending Physician: Bebo Donis Admitting Physician: Bebo [...] 01/30/19 16:03:12 EDT, Route to Pharmacy Electronically, [id number], [id number] Start Date: 01/30/19 Status: Ordered Imodium A-D [...] 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
--- OUTSIDE RECORDS SUMMARY | 2023-11-11 09:43 | XMS_ITS | Continuity of Care Document ---
Author Organization [facility] Address [address] [place] [address]- Care Team Providers Care Beader Tender Name Role Phone Cristian JOHNSTON, Bibi Singh Primary Care Physician Encounter [facility] [place] Date(s): 09/10/22 - 10/10/22 [facility] [address] [place], [place] [address] Allergies, Adverse Reactions, Alerts Substance Reaction Severity Status morphine ITCHING DOES NOT WORK Active Immunizations Given and Recorded Vaccine Date Status Refusal Reason influenza virus vaccine, inactivated 04/23/22 Give n influenza virus vaccine, inactivated 1 07/10/19 Gi ariana influenza virus vaccine, inactivated 03/31/15 Give n tetanus-diphtheria toxoids (Td) 2 09/28/14 [facility]# [id number] pt. tolerated inj. without complications....CO 2Result Comment: [...] tablet, 2 Refills, Maintenance, 09/04/22 16:14:00 EST, [facility] #[id number], 153, cm, 06/22/22 7:55:00 EST, Height Start Date: 09/04/22 Status: Ordered Crestor 40 mg oral tablet 1 tablet = 40 mg, By Mouth, Daily, # 90 tablet, 2 Refills, Maintenance, 04/24/22 12:13:00 EDT, Tablet, [facility] [place] [facility] #[id number], Partial fill upon patient request if the prescription is for a schedule II opioid drug., 153, cm, 04/23/22 8:20:00 EDT,... Start Date: 04/24/22 Status: Ordered cyanocobalamin 1000 mcg/ml injectable solution See Instructions, INJECT 1 ML IN THE MUSCLE EVERY 30 DAYS, # 1 mL, 11 Refills, Maintenance, 01/08/22 16:04:00 EDT, [facility] [place] [facility] #[id number], 153, cm, 05/22/21 7:19:00 EST, Height Start Date: 01/08/22 Status: Ordered FLUoxetine 20 mg oral capsule 20 mg, 1, capsule, By Mouth, Daily, # 30 capsule, Refills 3, Tot. 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 Routine medical exam [...] Safety Implantable Status Assigning Authority Unknown Unknown [id number] Unknown 10/27/19 Unknown Unknown Active Unknown Patient Care team information Care Team Personnel Name: Bibi Foster MD Position: [facility] Primary Care Physician Member Role: PCP Address: Address: [address] [place] [address] Care Team Related Persons Name: DANIELLE AVILES Address: [address] [place] [address] Name: ABHIJEET TAI Address: [address] [place] [address] Name: JUANITO THOMAS Address: home [address] [place] [address] Name: SATISH FRANCES Address: home [address] [place] [address]
--- OUTSIDE RECORDS SUMMARY | 2023-11-11 09:43 | XMS_ITS | Continuity of Care Document ---
Author Organization [facility] Address [address] [place] [address]- Care Team Providers Care Strategies Analyst Name Role Phone Bibi Foster MD Primary Care Physician [phone] Encounter [facility] Date(s): 07/20/20 - 08/19/20 [facility] [address] [place], [place] [address] Allergies, Adverse Reactions, Alerts Substance Reaction Severity Status morphine ITCHING DOES NOT WORK Active Immunizations Given and Recorded Vaccine Date Status Refusal Reason influenza virus vaccine, inactivated 1 07/10/19 Gi ariana influenza virus vaccine, inactivated 03/31/15 Give n tetanus-diphtheria toxoids (Td) 2 09/28/14 Given 1Result Comment: [facility]# [id number] pt. tolerated inj. without complications....CO 2Result Comment: [09/28/2014] given without incident.....vs Medications clonazePAM 0.5 mg oral tablet See Instructions, TAKE 1 TABLET BY MOUTH TWICE DAILY NEEDED FOR ANXIETY, # 60 tablet, 2 Refills,Maintenance, 07/28/20 10:21:00 EST, [facility] #[id number], 153, cm, 06/22/20 8:13:00 EST, Height, 56.8, kg, 07/10/19 10:40:00 EST, Dry Weight Start Date: 07/28/20 Status: Ordered cyanocobalamin 1000 mcg/ml injectable solution See Instructions, INJECT 1 ML IN THE MUSCLE EVERY 30 DAYS, # 1 mL, 11 Refills, Maintenance, [facility] #[id number], 153, cm, 06/22/20 8:13:00 EST, Height, 56.8, kg, 07/10/19 10:40:00 EST, Dry Weight Start Date: 07/15/20 Status: Ordered cyanocobalamin 1000 mcg/ml injectable solution See Instructions, INJECT 1 ML IN THE MUSCLE EVERY 30 DAYS, # 1 mL, 3 Refills, Maintenance, [facility] #[id number], 153, cm, 07/10/19 11:20:00 EST, Height, 56.8, [...] 0 Refills, Maintenance, 08/08/20 13:14:00 EST, ECCapsule, [facility] #[id number], PUT ON FILE, 153, cm, 06/22/20 8:13:00 [...] to Psychological Factors(Confirmed) Active Palpitations(Confirmed) Active *[facility] [phone] 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
--- OUTSIDE RECORDS SUMMARY | 2023-11-11 09:43 | XMS_ITS | Continuity of Care Document ---
Author Organization [facility] Address [address] [place] [address]- Care Team Providers Care Brush Maker Machine Name Role Phone Bibi Foster MD Primary Care Physician [phone] [place] [facility] [place] 09[place]28/20 [facility] [address] [place], [place] [address] Allergies, Adverse Reactions, Alerts Substance Reaction Severity Status morphine ITCHING DOES NOT WORK Active Immunizations Given and Recorded Vaccine Date Status Refusal Reason influenza virus vaccine, inactivated 1 07/10/19 Gi ariana influenza virus vaccine, inactivated 03/31/15 Give n tetanus-diphtheria toxoids (Td) 2 09/28/14 Given 1Result Comment: [facility]# [id number] pt. tolerated inj. without complications....CO 2Result Comment: [09/28/2014] given without incident.....vs Medications clonazePAM 0.5 mg oral tablet See Instructions, TAKE 1 TABLET BY MOUTH TWICE DAILY NEEDED FOR ANXIETY, # 60 tablet, 2 Refills,Maintenance, 09/26/20 15:13:00 EDT, [facility] #[id number], 153, cm, 08/24/20 10:52:00 EST, Height, 56.8, kg, 07/10/19 10:40:00 EST, Dry Weight Start Date: 09/26/20 Status: Ordered cyanocobalamin 1000 mcg/ml injectable solution See Instructions, INJECT 1 ML IN THE MUSCLE EVERY 30 DAYS, # 1 mL, 11 Refills, Maintenance, 08/29/20 16:23:00 EST, [facility] #[id number], 153, cm, 08/24/20 10:52:00 EST, Height, 56.8, [...] 3 Refills, Maintenance, 08/24/20 11:19:00 EST, ECCapsule, [facility] #[id number], PUT ON FILE, 153, cm, 08/24/20 10:52:00 [...] Related to Psychological Factors(Confirmed) Active Palpitations(Confirmed) Active *[facility] [phone] 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
--- OUTSIDE RECORDS SUMMARY | 2023-11-11 09:43 | XMS_ITS | Continuity of Care Document ---
Author Organization [facility] Address [address] [place] [address]- Care Team Providers Care Gamer Name Role Phone Bibi Foster MD Primary Care Physician [phone] Encounter [facility] [place] Date(s): 02/24/21 - 03/26/21 [facility] [address] [place] [address]- Attending Physician: Bebo Donis Admitting Physician: AdmBebo ventura Referring Physician: AdmtrBebo Allergies, Adverse Reactions, Alerts Substance Reaction Severity Status morphine ITCHING DOES NOT WORK Active Immunizations Given and Recorded Vaccine Date Status Refusal Reason influenza virus vaccine, inactivated 1 07/10/19 Gi ariana influenza virus vaccine, inactivated 03/31/15 Give n tetanus-diphtheria toxoids (Td) 2 09/28/14 Given 1Result Comment: [facility]# [id number] pt. tolerated inj. without complications....CO 2Result Comment: [09/28/2014] given without incident.....vs Medications clonazePAM 0.5 mg oral tablet See Instructions, TAKE 1 TABLET BY MOUTH TWICE DAILY NEEDED FOR ANXIETY, # 60 tablet, 2 Refills,Maintenance, 01/16/21 16:51:00 EDT, [facility] #[id number], 153, cm, 12/29/20 9:38:00 EDT, Height, 56.8, kg, 07/10/19 10:40:00 EST, Dry Weight Start Date: 01/16/21 Status: Ordered cyanocobalamin 1000 mcg/ml injectable solution See Instructions, INJECT 1 ML IN THE MUSCLE EVERY 30 DAYS, # 1 mL, 11 Refills, Maintenance, 08/29/20 16:23:00 EST, [facility] #[id number], 153, cm, 08/24/20 10:52:00 EST, Height, 56.8, [...] 3 Refills, Maintenance, 08/24/20 11:19:00 EST, ECCapsule, [facility] #[id number], PUT ON FILE, 153, cm, 08/24/20 10:52:00 [...] Mouth, Daily at bedtime, Refills 0, Maintenance, 12/29/20 9:39:00 EDT, Partialfill upon patient request if the prescription is for a schedule II opioid drug. 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
--- OUTSIDE RECORDS SUMMARY | 2023-11-11 09:43 | XMS_ITS | Continuity of Care Document ---
Author Organization 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 [address] [place] [address]- Encounter Diagnosis Lumbar post-laminectomy syndrome(Discharge Diagnosis) - 10/09/23 Hypertension(Discharge Diagnosis) - 10/09/23 Anxiety(Discharge Diagnosis) - 10/09/23 Pancytopenia(Discharge Diagnosis) - 10/09/23 Routine check-up(Discharge Diagnosis) - 10/09/23 Attending Physician: Bibi Foster MD Allergies, Adverse Reactions, Alerts Substance Reaction Severity Status morphine ITCHING DOES NOT WORK Active Crestor transaminitis Active NSAIDs acute renal failure Active Immunizations Given and Recorded Vaccine Date Status Refusal Reason influenza virus vaccine, inactivated 04/23/22 Give n influenza virus vaccine, inactivated 1 07/10/19 Gi ariana influenza virus vaccine, inactivated 03/31/15 Give n tetanus-diphtheria toxoids (Td) 2 09/28/14 Given 1Result Comment: [facility]# [id number] pt. tolerated inj. without complications....CO 2Result Comment: [...] due, # 60 tablet, 2 Refills, Maintenance, 09/02/23 11:36:00 EST, [facility] #[id number], 153, cm, 09/02/23 11:02:00 EST, Height Start Date: 09/02/23 Status: Ordered cyanocobalamin 1000 mcg/ml injectable solution See Instructions, INJECT 1 ML IN THE MUSCLE EVERY 30 DAYS, # 1 mL, 11 Refills, Maintenance, 05/27/23 15:22:00 EST, [facility] #[id number], 153, cm, 04/05/23 12:59:00 EDT, Height Start Date: 05/27/23 Status: Ordered FLUoxetine 20 mg oral capsule 20 mg, 1, capsule, By Mouth, Daily, # 30 capsule, Refills 3, Tot. Refills 3, Maintenance, 09/19/22 15:11:00 EDT, Route to Pharmacy Electronically, [facility] #[id number], Partial fill upon patient request if the prescription is for a schedule II... Start Date: 09/19/22 Status: Ordered Imodium A-D 2 mg, By Mouth, Every 4 hours, Refills 0, Maintenance, 12/02/18 14:58:00 EDT Start Date: 12/02/18 Status: Ordered Multivitamin Daily, 0 Refills, Maintenance, 08/24/20 11:20:00 EST, Partial fill upon patient request if the prescription is for a schedule II opioid drug. Start Date: 08/24/20 Status: Ordered NIFEdipine (Eqv-Procardia XL) 30 mg oral tablet, extended release TAKE 1 TABLET BY MOUTH EVERY DAY Start Date: 09/02/23 Status: Ordered omeprazole 20 mg oral enteric coated capsule 1 capsule = 20 mg, By Mouth, Daily, # 90 capsule, 1 Refills, Maintenance, 09/02/23 11:35:00 EST, ECCapsule, [facility] #[id number], PUT ON FILE, 153, cm, 09/02/23 11:02:00 EST, Height Start Date: 09/02/23 Status: Ordered syringe and needles syringe and [...] Maintenance, 03/15/23 15:58:00 EDT, [id number], [place]... 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 Routine medical exam Confirmed Active Routine check-up Confirmed Active Failed back surgical syndrome Confirmed Active Sacroiliac dysfunction Confirmed Active Encounter for screening colonoscopy Confirmed Active Varicose vein of leg Confirmed Active Diagnosis Diagnosis Type Effective Dates Health Status Clinical Service Informant Lumbar post-laminectomy syndrome Discharge Diagnosis 10/09/23 Hypertension Discharge Diagnosis 10/09/23 Anxiety Discharge Diagnosis 10/09/23 Pancytopenia Discharge Diagnosis 10/09/23 Routine check-up Discharge Diagnosis 10/09/23 Vital Signs Most recent to oldest [Reference Range]: 1 2 Height 152.5 cm (10/09/23 3:19 PM) 152.5 cm (10/09/23 11:05 AM) Weight 56 kg (10/09/23 3:19 PM) 56 kg (10/09/23 11:05 AM) Oxygen Saturation [94-100 %] 96 % (10/09/23 11:05 AM) Pulse Rate [55-90 bpm] 113 bpm *H* (10/09/23 11:05 AM) Body Mass Index [18.5-24.99 kg/m2] 24.08 kg/m2 (10/09/23 11:05 AM) Blood Pressure [90-138/55-84 mm Hg] 117/ 83mm Hg (10/09/23 11:05 AM) Temperature [96.8-100.4 DegF] 98.4 DegF (10/09/23 11:05 AM) Mode of Delivery (Oxygen) Room air (10/09/23 11:05 AM) Blood pressure sites Arm, left (10/09/23 11:05 AM) Temperature Route Temporal (10/09/23 11:05 AM) Weight Obtained Via Standing scale (10/09/23 11:05 AM) Social History Social History Type Response Smoking Status Never smoker entered on: 07/30/13 Sex Implantable Device List Procedure Provider Procedure Date Device Type Site Repair Hernia Ventral Laparoscopic Jhoan Coppola MD 02/19/18 Unknown Abdomen Device Identifier Serial Number Lot or Batch Number Manufacturing Date Expiration Date Distinct Identification Code MRI Safety Implantable Status Assigning Authority Unknown Unknown [id number] Unknown 10/27/19 Unknown Unknown Active Unknown Note * Jadyn Villanueva: PERFORM, SIGN, VERIFY Event Display: Patient Education/Instruction Authored Date: [id number] [facility] *No Edge Adult Ped Clinical Summary Name JENNIE FRANCES Age 58 Years 1965 PCP Bibi Foster MD PCP [facility]# [id number] Visit Date 10/09/2023 11:00:00 Additional Instructions: Scheduled Appointments?? Future Appointments ?No Future Appointments Scheduled Follow-Up Instructions ?? With: Address: When: Artis Givens [address] [place] [address] - [address], [place] [address] [facility] (1) Diagnosis Postlaminectomy syndrome, not elsewhere classified; Other pancytopenia; Essential (primary) hypertension; Anxiety disorder, unspecified; Encounter for general adult medical examination without abnormal findings Medications: Please continue your medications until treatment is completed or stopped by your provider. Discuss any questions related to medications with your provider. Medications to Continue with No Changes These medications were not printed or sent to your pharmacy Carisoprodol (carisoprodol 350 mg oral tablet) 1 tab(s) Oral twice a day. Next Dose: Clonazepam (clonazePAM 0.5 mg oral tablet) TAKE 1 TABLET BY MOUTH TWICE DAILY NEEDED FOR ANXIETY fill when due. Refills: 2. Next Dose: Cyanocobalamin (cyanocobalamin 1000 mcg/ml injectable solution) INJECT 1 ML IN THE MUSCLE EVERY 30 DAYS. Refills: 11. Next Dose: Durable Medical Equipment (syringe and needles) syringe 3cc needles 25 g X 1 inch for use with b12. Refills: 1. Next Dose: Fluoxetine (FLUoxetine 20 mg oral capsule) 1 capsule Oral Daily. Refills: 3. Next Dose: Loperamide (Imodium A-D) 2 Milligram Oral every 4 hours. Next Dose: Multivitamin Daily. Next Dose: NIFEdipine (NIFEdipine (Eqv-Procardia XL) 30 mg oral tablet, extended release) TAKE 1 TABLET BY MOUTH EVERY DAY. Next Dose: Omeprazole (omeprazole 20 mg oral enteric coated capsule) 1 capsule Oral Daily. Refills: 1. Next Dose: Tramadol (traMADol 50 mg oral tablet) 1 tab(s) Oral twice a day. Next Dose: Trazodone (traZODone 50 mg oral tablet) TAKE 1 TABLET BY MOUTH EVERY DAY AT BEDTIME. Next Dose: Trazodone (traZODone 50 mg oral tablet) 1 tab(s) Oral Daily at Bedtime for 7 Days. [facility], OTHER REFILLS TO BE DONE BY REGULAR PRESCRIBER. Refills: 0. Next Dose: Allergy Info:?? NSAIDs; Crestor; morphine Medications Given This Visit Future Orders ?MM Digital Mammo Screening? Order Date:10/09/23?- Complete on or after?10/09/23 ?US Soft Tissue Head/Neck? Order Date:10/09/23?- Complete on or after?10/09/23 Future Orders ?MM Digital Mammo Screening? Order Date:10/09/23?- Complete on or after?10/09/23 ?US Soft Tissue Head/Neck? Order Date:10/09/23?- Complete on or after?10/09/23 Vital Signs Height 152.5 cm Weight 56 kg BMI 24.08 kg/m2 Blood Pressure 117 mm Hg/83 mm Hg Temperature 98.4 DegF Pulse Rate 113 bpm Respiratory Rate 02 Sat Mode of Delivery 96 %/Room air You can now view a summary of your hospital visit from the comfort of your home through a free online portal called [employer]. [employer] is a website that allows you to securely view your medical information including discharge summary, medications and follow-up visits. ??You can alsosend a secure electronic message to your doctor???s office to request appointments, renew medications or just ask a question. You can enroll at [email or web address] or register during your next office visit. Disclaimer:?? The information provided is of a general nature and is intended to be used in conjunction with the recommendations and advice of your health care practitioner. ??Every effort has been made to ensure that the information provided is accurate and complete at the time it is provided to you however, as your needs change, or, as new ??information becomes available, different or additional instructions may be required. If you have questions, please consult with your primary care provider or pharmacist, as appropriate. ??This information is not intended to serve as substitution for assessment and evaluation by a qualified health care provider. If you do not have a primary care provider, you may find a [facility] provider by calling [facility] at [phone]. [facility], in keeping with [facility] guidance, no longer requires face masks for staff, patientsor visitors in most situations. Similar to time spent indoors at other locations, there is the chance that you were exposed to respiratory viruses during your time with us (such as flu or COVID-19).? If you develop symptoms concerning for a viral respiratory infection, please seek testing (and treatment if indicated) from your medical provider or home test kit. For information about the plan of care including goals and instructions for your diagnosis, please see the patient education orders section of this document. Patient Education Materials?? The content of this educational material or handout may have been modified, supplemented, or adapted from its original content and format to support your individualized medical care. Low-Salt Diet (2 Grams/Day) This diet eliminates foods that are high in salt and restricts the amount of salt that you cook with. It is most often used for patients with high blood pressure, edema (fluid retention), kidney, liver, and heart disease. Table salt contains the mineral sodium. The body needs sodium to work normally. But too much sodiumcan make your health problems worse. Your health care provider is recommending a low-salt (also called low-sodium) diet for you. Your total daily allowance of salt (sodium) is 2 grams. This equals 2,000 milligrams (mg). It is less than 1 teaspoon of table salt. This means you can have only about 700 mg of sodium at each meal. When you cook, limit the salt you use. And if you can avoid using salt, even better. Do not add salt at the table. So, throw away the saltshaker! When shopping, read the package labels. Salt is often called ???sodium?? on the label. Choose foods that are salt-free, low salt, or very low salt. Note that foods with reduced salt or reduced sodium may not??lower your salt intake enough. Beverages Ok: Tea, coffee, carbonated beverages, juices Avoid: Flavored international coffees, electrolyte replacement drinks, sports beverages Bread and cereals Ok: Low sodium bread and rolls, cereals, cakes; low-salt crackers, matzo crackers Avoid: Salted crackers, pretzels, popcorn; urdu toast, pancakes, muffins Desserts Ok: Ice cream, frozen yogurt, juice bars, gelatin, cookies and pies, sugar, honey, jelly, hard candy Avoid: Most pies, cakes and cookies prepared or processed with salt, instant pudding Meats Ok: All fresh meat, fish, poultry, low-salt tuna, eggs, egg substitute Avoid: Smoked, pickled, brine-cured, or salted meats and fish. This??includes titus, chipped beef, corned beef, hot dogs, luncheon meats, ham, kosher meats, salt pork, sausage, canned tuna, salted codfish, smoked??salmon, piper, sardines, or anchovies. Dairy Ok: Milk, chocolate milk, hot chocolate mix, ???low-salt?? cheeses, and yogurt Avoid: Processed cheese, cheese spreads, Roquefort, Camembert, and cottage cheese, buttermilk, instant breakfast drink Beans, potatoes, and pasta Ok: Dry beans, split peas, lentils, potatoes, rice, macaroni, pasta, spaghetti without added salt Avoid: Potato chips, tortilla chips, and similar products Soups Ok: Low-salt soups and broths made with allowed foods Avoid: Bouillon cubes, soups with smoked or salted meats, regular soup and broth Vegetables Ok: Most are okay; low-salt tomato and vegetable juices Avoid: Sauerkraut and other brine-soaked vegetables, pickles and other pickled vegetables, tomato juice, olives Seasoning and spices Ok: Most seasonings are okay. Good substitutes for salt include: fresh herb blends, hot sauce, lemon, garlic, dickens, vinegar, dry mustard, parsley, cilantro, horseradish, tomato paste, regular margarine, mayonnaise, butter, cream cheese, vegetable oil, cream, low-salt salad dressing and gravy Avoid: Regular ketchup, relishes, pickles, soy sauce, teriyaki sauce, Worcestershire sauce, BBQ sauce, tartar sauce, meat tenderizer, chili sauce, regular gravy, regular salad dressing ?? [id number] [employer]. [address] [place] [address], [place] [address]. All rights reserved. This information is not intended as a substitute for professional medical care. Always follow your healthcare professional's instructions. Low-Salt Choices Eating salt (sodium) can make your body retain too much water. Excess water makes your heart work harder. Canned, packaged, and frozen foods are easy to prepare, but they are often high in sodium. Here are some ideas for low-salt foods you can easily prepare yourself. For breakfast ??? Fruit or 100% fruit juice ??? Whole-wheat bread or an Burmese muffin. Compare sodium content on labels. ??? Low-fat milk or yogurt ??? Unsalted eggs ??? Shredded wheat ??? [place] tortillas ??? Unsalted steamed rice ??? Regular (not instant) hot cereal, made without salt Stay away from: ??? Sausage, titus, and ham ??? Flour tortillas ??? Packaged muffins, pancakes, and biscuits ??? Instant hot cereals ??? Cottage cheese For lunch and dinner ??? Fresh fish, chicken, turkey, or meat???baked, broiled, or roasted without salt ??? Dry beans, cooked without salt ??? Tofu, stir-fried without salt ??? Unsalted fresh fruit and vegetables, or frozen or canned fruit and vegetables with no added salt Stay away from: ??? Lunch or deli meat that is cured or smoked ??? Cheese ??? Tomato juice and catsup ??? Canned vegetables, soups, and fish not labeled as [id number] or reduced sodium ??? Packaged gravies and sauces ??? Olives, pickles, and relish ??? Bottled salad dressings For snacks and desserts ??? Yogurt ??? Unsalted, air popped popcorn ??? Unsalted nuts or seeds Stay away from: ??? Pies and cakes ??? Packaged dessert mixes ??? Pizza ??? Canned and packaged puddings ??? Pretzels, chips, crackers, and nuts???unless the label says unsalted ?? [id number] [employer]. [address] [place] [address]. All rights reserved. This information is not intended as a substitute for professional medical care. Always follow your healthcare professional's instructions. Patient Care team information Care Team Personnel Name: Bibi Foster MD Position: [facility] Physician - Primary Care Member Role: PCP Address: Address: [address] [place] [address]- Care Team Related Persons Name: DANIELLE AVILES Address: home [address] [place] [address] Name: ABHIJEET TAI Address: home [address] [place] [address] Name: JUANITO THOMAS Address: home [address] [place] [address] Name: SATISH FRANCES Address: home [address] [place] [address]
--- OUTSIDE RECORDS SUMMARY | 2023-11-11 09:43 | XMS_ITS | Continuity of Care Document ---
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 Name Role Phone Bibi Foster MD Primary Care Physician Encounter [facility] Date(s): 05/21/23 - 06/20/23 [facility] [address] [place], [place] [address] Allergies, Adverse Reactions, Alerts Substance Reaction Severity Status morphine ITCHING DOES NOT WORK Active Immunizations Given and Recorded Vaccine Date Status Refusal Reason influenza virus vaccine, inactivated 04/23/22 Give n influenza virus vaccine, inactivated 1 07/10/19 Gi ariana influenza virus vaccine, inactivated 03/31/15 Give n tetanus-diphtheria toxoids (Td) 2 09/28/14 Given 1Result Comment: [facility]# [id number] pt. tolerated inj. without complications....CO 2Result Comment: [...] tablet, 2 Refills, Maintenance, 05/21/23 15:52:00 EST, [facility] #[id number], 153, cm, 04/05/23 12:59:00 EDT, Height Start Date: 05/21/23 Status: Ordered clonazePAM 0.5 mg oral tablet See Instructions, TAKE 1 TABLET BY MOUTH TWICE DAILY NEEDED FOR ANXIETY fill when due [facility], # 14 tablet, 0 Refills, Maintenance, 03/22/23 16:00:00 EDT, [facility] #[id number], 153, cm, 03/14/23 11:14:00 EDT, Height Start Date: 03/22/23 Status: Ordered clonazePAM 1 mg oral tablet 0.5 tablet = 0.5 mg, By Mouth, 2 times a day, To replace 0.5 mg tablet due to back order., # 30 tablet, 0 Refills, Maintenance, 04/16/23 16:20:00 EDT, [facility] #[id number], Partial fill upon patient request if the prescription is for a schedule... Start Date: 04/16/23 Stop Date: 04/23/23 Status: Ordered Crestor 40 mg oral tablet 1 tablet = 40 mg, By Mouth, Daily, # 90 tablet, 2 Refills, Maintenance, 04/05/23 16:20:00 EDT, Tablet, [facility] #[id number], Partial fill upon patient request if the prescription is for a schedule II opioid drug., 153, cm, 04/05/23 12:59:00 EDT... Start Date: 04/05/23 Status: Ordered cyanocobalamin 1000 mcg/ml injectable solution See Instructions, INJECT 1 ML IN THE MUSCLE EVERY 30 DAYS, # 1 mL, 11 Refills, Maintenance, 05/27/23 15:22:00 EST, [facility] #[id number], 153, cm, 04/05/23 12:59:00 EDT, Height Start Date: 05/27/23 Status: Ordered FLUoxetine 20 mg oral capsule 20 mg, 1, capsule, By Mouth, Daily, # 30 capsule, Refills 3, Tot. Refills 3, Maintenance, 09/19/22 15:11:00 EDT, Route to Pharmacy Electronically, [facility] #[id number], Partial fill upon patient request if the [...] Refills, Maintenance, 11/13/22 9:04:00 EDT, EC Capsule, [facility] #[id number], PUT ON FILE, 153, cm, 11/09/22 18:01:00 [...] Maintenance, 03/15/23 15:58:00 EDT, Route to PharmacyElectronically, [facility] #[id number], [place]... 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 Routine medical exam [...] Safety Implantable Status Assigning Authority Unknown Unknown [id number] Unknown 10/27/19 Unknown Unknown Active Unknown Patient Care team information Care Team Personnel Name: Bibi Foster MD Position: [facility] Physician - Primary Care Member Role: PCP Address: Address: [address] [place] [address] Care Team Related Persons Name: DANIELLE AVILES Address: home [address] [place] [address] Name: ABHIJEET TAI Address: home [address] [place] [address] Name: JUANITO THOMAS Address: home [address] [place] [address] Name: SATISH FRANCES Address: home [address] [place] [address]
--- OUTSIDE RECORDS SUMMARY | 2023-11-11 09:43 | XMS_ITS | Continuity of Care Document ---
Author Organization [facility] Address [address] [place] [address]- Care Team Providers Care Joiner Apprentice Name Role Phone Bibi Foster MD Primary Care Physician [phone] Encounter [facility] Date(s): 05/10/21 - 07/14/21 [facility] [address] [place] [address]- Attending Physician: Derik Merritt MD Admitting Physician: Derik Merritt MD Referring Physician: Bibi Foster MD Allergies, Adverse Reactions, Alerts Substance Reaction Severity Status morphine ITCHING DOES NOT WORK Active Immunizations Given and Recorded Vaccine Date Status Refusal Reason influenza virus vaccine, inactivated 1 07/10/19 Gi ariana influenza virus vaccine, inactivated 03/31/15 Give n tetanus-diphtheria toxoids (Td) 2 09/28/14 Given 1Result Comment: [facility]# [id number] pt. tolerated inj. 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
--- OUTSIDE RECORDS SUMMARY | 2023-11-11 09:43 | XMS_ITS | Continuity of Care Document ---
Author Organization [facility] Address [address] [place] [address]- Care Team Providers Care Senior Software Qa Engineer Name Role Phone Bibi Foster MD Primary Care Physician Encounter [facility] Date(s): 09/02/23 - 10/02/23 [facility] [address], [place] [address] Attending Physician: Bebo Donis Admitting Physician: AdmBebo ventura Referring Physician: Admtr, Ar8 Allergies, Adverse Reactions, Alerts Substance Reaction Severity Status morphine ITCHING DOES NOT WORK Active Crestor transaminitis Active NSAIDs acute renal failure Active Immunizations Given and Recorded Vaccine Date Status Refusal Reason influenza virus vaccine, inactivated 04/23/22 Give n influenza virus vaccine, inactivated 1 07/10/19 Gi ariana influenza virus vaccine, inactivated 03/31/15 Give n tetanus-diphtheria toxoids (Td) 2 09/28/14 Given 1Result Comment: [facility]# [id number] pt. tolerated inj. without complications....CO 2Result Comment: [...] tablet, 2 Refills, Maintenance, 09/02/23 11:36:00 EST, [facility] #[id number], 153, cm, 09/02/23 11:02:00 EST, Height Start Date: 09/02/23 Status: Ordered cyanocobalamin 1000 mcg/ml injectable solution See Instructions, INJECT 1 ML IN THE MUSCLE EVERY 30 DAYS, # 1 mL, 11 Refills, Maintenance, 05/27/23 15:22:00 EST, [facility] #[id number], 153, cm, 04/05/23 12:59:00 EDT, Height Start Date: 05/27/23 Status: Ordered FLUoxetine 20 mg oral capsule 20 mg, 1, capsule, By Mouth, Daily, # 30 capsule, Refills 3, Tot. Refills 3, Maintenance, 09/19/22 15:11:00 EDT, Route to Pharmacy Electronically, [facility] #[id number], Partial fill upon patient request if the [...] 1 Refills, Maintenance, 09/02/23 11:35:00 EST, ECCapsule, [facility] #[id number], PUT ON FILE, 153, cm, 09/02/23 11:02:00 [...] Maintenance, 03/15/23 15:58:00 EDT, [id number], [place]... 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 Active Palpitations Confirmed Active Pancytopenia Confirmed Active *[facility] [phone] 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 Routine medical exam [...] Safety Implantable Status Assigning Authority Unknown Unknown [id number] Unknown 10/27/19 Unknown Unknown Active Unknown Hospital Consult note * Event Display: Inpatient Consult Note, Non- Authored Date: Laboratory * Event Display: Non Lab Results Authored Date: Patient Care team information Care Team Personnel Name: Bibi Foster MD Position: S Physician - Primary Care Member Role: PCP Address: Address: [address] [place] [address] Care Team Related Persons Name: DANIELLE AVILES Address: home [address] [place] [address] Name: ABHIJEET TAI Address: home [address] [place] [address] Name: JUANITO THOMAS Address: home [address] [address] Name: SATISH FRANCES Address: home [address] [place] [address]
--- OUTSIDE RECORDS SUMMARY | 2023-11-11 09:44 | XMS_ITS | Continuity of Care Document ---
Author Organization [facility] Address [address] [place] [address]- Care Team Providers Care Social Work Msw Name Role Phone Bibi Foster MD Primary Care Physician Encounter [facility] Date(s): 07/06/22 - 08/05/22 [facility] [address] [place], [place] [address] Allergies, Adverse Reactions, Alerts Substance Reaction Severity Status morphine ITCHING DOES NOT WORK Active Immunizations Given and Recorded Vaccine Date Status Refusal Reason influenza virus vaccine, inactivated 04/23/22 Give n influenza virus vaccine, inactivated 1 07/10/19 Gi ariana influenza virus vaccine, inactivated 03/31/15 Give n tetanus-diphtheria toxoids (Td) 2 09/28/14 [facility]# [id number] pt. tolerated inj. without complications....CO 2Result Comment: [...] ANXIETY fill when due, # 60 tablet, 1 Refills, Maintenance, 06/18/22 15:54:00 EST, [facility] #[id number], 153, cm, 05/17/22 8:20:00 EST, Height Start Date: 06/18/22 Status: Ordered Crestor 40 mg oral tablet 1 tablet = 40 mg, By Mouth, Daily, # 90 tablet, 2 Refills, Maintenance, 04/24/22 12:13:00 EDT, Tablet, [facility] #[id number], Partial fill upon patient request if the prescription is for a schedule II opioid drug., 153, cm, 04/23/22 8:20:00 EDT,... Start Date: 04/24/22 Status: Ordered cyanocobalamin 1000 mcg/ml injectable solution See Instructions, INJECT 1 ML IN THE MUSCLE EVERY 30 DAYS, # 1 mL, 11 Refills, Maintenance, 01/08/22 16:04:00 EDT, [facility] #[id number], 153, cm, 05/22/21 7:19:00 EST, Height Start Date: 01/08/22 Status: Ordered Imodium A-D 2 mg, By [...] 1 Refills, Maintenance, 01/08/22 16:03:00 EDT, ECCapsule, [facility] #[id number], PUT ON FILE, 153, cm, 05/22/21 7:19:00 EST, Height Start Date: 01/08/22 Status: Ordered syringe and needles syringe and needles, See Instructions, # 3 each, Refills 1, Tot. Refills 1, Maintenance, syringe 3cc needles 25 g X 1 inch for use with b12, 01/08/22 16:02:00 EDT, Compound, 153, cm, 05/22/21 7:19:00EST, Height Start Date: 01/08/22 Status: Ordered Tessalon Perles 100 mg oral capsule 2 capsule = 200 mg, By Mouth, 3 times a day, PRN as needed for cough, # 30 capsule, 0 Refills, Acute 08/11/22 14:12:00 EST, 07/06/22 14:12:00 EST, Capsule, [facility] #[id number], Partial fill upon patient request if the prescription is for a renu... 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 Routine medical exam [...] Safety Implantable Status Assigning Authority Unknown Unknown [id number] Unknown 10/27/19 Unknown Unknown Active Unknown Patient Care team information Care Team Personnel Name: Bibi Foster MD Position: [facility] Primary Care Physician Member Role: PCP Address: Address: [address] [place] [address] Care Team Related Persons Name: DANIELLE AVILES Address: home [address] [place] [address] Name: ABHIJEET TAI Address: home [address] [place] [address] Name: JUANITO THOMAS Address: [address] [place] [address] Name: SATISH FRANCES Address: home [address] [place] [address]
--- OUTSIDE RECORDS SUMMARY | 2023-11-11 09:44 | XMS_ITS | Continuity of Care Document ---
Author Organization [facility] Address [address] [place] [address]- Care Team Providers Care Turner Machine Operator Name Role Phone Cristian JOHNSTON, Bibi Singh Primary Care Physician Encounter [facility] Date(s): 08/08/21 - 09/07/21 [facility] [address] [place], [place] [address] Allergies, Adverse Reactions, Alerts Substance Reaction Severity Status morphine ITCHING DOES NOT WORK Active Immunizations Given and Recorded Vaccine Date Status Refusal Reason influenza virus vaccine, inactivated 1 07/10/19 Gi ariana influenza virus vaccine, inactivated 03/31/15 Give n tetanus-diphtheria toxoids (Td) 2 09/28/14 Given 1Result Comment: [facility]# [id number] pt. tolerated inj. 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
--- OUTSIDE RECORDS SUMMARY | 2023-11-11 09:44 | XMS_ITS | Continuity of Care Document ---
Author Organization [facility] Address [address] [place] [address]- Care Team Providers Care Parts Salesman Name Role Phone Bibi Foster MD Primary Care Physician [phone] Encounter [facility] Date(s): 04/12/23 - 05/12/23 [facility] [address] [place] [address]- Attending Physician: Bebo Donis Admitting Physician: AdmBebo [...] toxoids (Td) 2 09/28/14 Given 1Result Comment: [facility]# [id number] pt. tolerated inj. without complications....CO 2Result Comment: [...] tablet, 2 Refills, Maintenance, 12/07/22 12:34:00 EDT, [facility] #[id number], 153, cm, 11/09/22 18:01:00 EDT, Height Start Date: 12/07/22 Status: Ordered clonazePAM 0.5 mg oral tablet See Instructions, TAKE 1 TABLET BY MOUTH TWICE DAILY NEEDED FOR ANXIETY fill when due [facility], # 14 tablet, 0 Refills, Maintenance, 03/22/23 16:00:00 EDT, [facility] #[id number], 153, cm, 03/14/23 11:14:00 EDT, Height Start Date: 03/22/23 Status: Ordered clonazePAM 1 mg oral tablet 0.5 tablet = 0.5 mg, By Mouth, 2 times a day, To replace 0.5 mg tablet due to back order., # 30 tablet, 0 Refills, Maintenance, 04/16/23 16:20:00 EDT, [facility] #[id number], Partial fill upon patient request if the prescription is for a schedule... Start Date: 04/16/23 Stop Date: 04/23/23 Status: Ordered Crestor 40 mg oral tablet 1 tablet = 40 mg, By Mouth, Daily, # 90 tablet, 2 Refills, Maintenance, 04/05/23 16:20:00 EDT, Tablet, [facility] #[id number], Partial fill upon patient request if the prescription is for a schedule II opioid drug., 153, cm, 04/05/23 12:59:00 EDT... Start Date: 04/05/23 Status: Ordered cyanocobalamin 1000 mcg/ml injectable solution See Instructions, INJECT 1 ML IN THE MUSCLE EVERY 30 DAYS, # 1 mL, 11 Refills, Maintenance, 01/08/22 16:04:00 EDT, [facility] #[id number], 153, cm, 05/22/21 7:19:00 EST, Height Start Date: 01/08/22 Status: Ordered FLUoxetine 20 mg oral capsule 20 mg, 1, capsule, By Mouth, Daily, # 30 capsule, Refills 3, Tot. Refills 3, Maintenance, 09/19/22 15:11:00 EDT, Route to Pharmacy Electronically, [facility] #[id number], Partial fill upon patient request if the [...] Refills, Maintenance, 11/13/22 9:04:00 EDT, EC Capsule, [facility] #[id number], PUT ON FILE, 153, cm, 11/09/22 18:01:00 [...] Maintenance, 03/15/23 15:58:00 EDT, Route to PharmacyElectronically, [facility] #[id number], [place]... 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 Routine medical exam Confirmed Active Failed back surgical syndrome Confirmed Active Sacroiliac dysfunction Confirmed Active Encounter for screening colonoscopy Confirmed Active Varicose vein of leg Confirmed Active Social History Social History Type Response Smoking Status Never smoker entered on: 07/30/13 Sex Implantable Device List Procedure Provider Procedure Date Device Type Site Repair Hernia Ventral Laparoscopic Abdon JOHNSTON, Jhoan 02/19/18 Unknown Abdomen Device Identifier Serial Number Lot or Batch Number Manufacturing Date Expiration Date Distinct Identification Code MRI Safety Implantable Status Assigning Authority Unknown Unknown [id number] Unknown 10/27/19 Unknown Unknown Active Unknown Patient Care team information Care Team Personnel Name: Bibi Foster MD [facility] Phys[facility] - Primary Care Member Role: PCP Address: Address: [address] [place] [address]- Care Team Related Persons Name: DANIELLE AVILES Address: home [address] [place] [address] Name: ABHIJEET TAI Address: home [address] [place] [address] Name: JUANITO THOMAS Address: home [address] [place] [address] Name: SATISH FRANCES Address: home [address] [place] [address]
--- OUTSIDE RECORDS SUMMARY | 2023-11-11 09:44 | XMS_ITS | Continuity of Care Document ---
Author Organization [facility] Address [address] [place] [address]- Care Team Providers Care Assistant Professor Of Radiology Name Role Phone Bibi Foster MD Primary Care Physician Encounter [facility] Date(s): 07/25/23 - 10/02/23 [facility] [address], [place] [address] Attending Physician: Bibi Foster MD Allergies, Adverse Reactions, Alerts Substance Reaction Severity Status morphine ITCHING DOES NOT WORK Active NSAIDs acute renal failure Active Crestor transaminitis Active Immunizations Given and Recorded Vaccine Date Status Refusal Reason influenza virus vaccine, inactivated 04/23/22 Give n influenza virus vaccine, inactivated 1 07/10/19 Gi ariana influenza virus vaccine, inactivated 03/31/15 Give n tetanus-diphtheria toxoids (Td) 2 09/28/14 Given 1Result Comment: [facility]# [id number] pt. tolerated inj. without complications....CO 2Result Comment: [...] tablet, 2 Refills, Maintenance, 09/02/23 11:36:00 EST, [facility] #[id number], 153, cm, 09/02/23 11:02:00 EST, Height Start Date: 09/02/23 Status: Ordered cyanocobalamin 1000 mcg/ml injectable solution See Instructions, INJECT 1 ML IN THE MUSCLE EVERY 30 DAYS, # 1 mL, 11 Refills, Maintenance, 05/27/23 15:22:00 EST, [facility] #[id number], 153, cm, 04/05/23 12:59:00 EDT, Height Start Date: 05/27/23 Status: Ordered FLUoxetine 20 mg oral capsule 20 mg, 1, capsule, By Mouth, Daily, # 30 capsule, Refills 3, Tot. Refills 3, Maintenance, 09/19/22 15:11:00 EDT, Route to Pharmacy Electronically, [facility] #[id number], Partial fill upon patient request if the [...] 1 Refills, Maintenance, 09/02/23 11:35:00 EST, ECCapsule, [facility] #[id number], PUT ON FILE, 153, cm, 09/02/23 11:02:00 [...] Maintenance, 03/15/23 15:58:00 EDT, Route to PharmacyElectronically, [facility] #[id number], [place]... 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 Routine medical exam [...] Safety Implantable Status Assigning Authority Unknown Unknown [id number] Unknown 10/27/19 Unknown Unknown Active Unknown Patient Care team information Care Team Personnel Name: Bibi Foster MD Position: [facility] Physician - Primary Care Member Role: PCP Address: Address: [address] [place] [address]- Care Team Related Persons Name: DANIELLE AVILES Address: home [address] [place] [address] Name: ABHIJEET TAI Address: home [address] [place] [address] Name: JUANITO THOMAS Address: home [address] [place] [address] Name: SATISH FRANCES Address: [address] [place] [place] [address]
--- OUTSIDE RECORDS SUMMARY | 2023-11-11 09:44 | XMS_ITS | Continuity of Care Document ---
Author Organization [facility] Address [address] [place] [address]- Care Team Providers Care Route Delivery Manager Name Role Phone iBbi Foster MD Primary Care Physician Encounter [facility] Date(s): 09/02/23 - 09/09/23 [facility] [address] [place], [place] [address] Encounter Diagnosis Hypertension(Discharge Diagnosis) - 09/02/23 Anxiety(Discharge Diagnosis) - 09/02/23 Hyperlipidemia(Discharge Diagnosis) - 09/02/23 Acute renal failure(Discharge Diagnosis) - 09/02/23 Pancytopenia(Discharge Diagnosis) - 09/02/23 Attending Physician: Bibi Foster MD Allergies, Adverse [...] toxoids (Td) 2 09/28/14 Given 1Result Comment: [facility]# [id number] pt. tolerated inj. without complications....CO 2Result Comment: [...] tablet, 2 Refills, Maintenance, 09/02/23 11:36:00 EST, [facility] #[id number], 153, cm, 09/02/23 11:02:00 EST, Height Start Date: 09/02/23 Status: Ordered cyanocobalamin 1000 mcg/ml injectable solution See Instructions, INJECT 1 ML IN THE MUSCLE EVERY 30 DAYS, # 1 mL, 11 Refills, Maintenance, 05/27/23 15:22:00 EST, [facility] #[id number], 153, cm, 04/05/23 12:59:00 EDT, Height Start Date: 05/27/23 Status: Ordered FLUoxetine 20 mg oral capsule 20 mg, 1, capsule, By Mouth, Daily, # 30 capsule, Refills 3, Tot. Refills 3, Maintenance, 09/19/22 15:11:00 EDT, Route to Pharmacy Electronically, [facility] #[id number], Partial fill upon patient request if the [...] 1 Refills, Maintenance, 09/02/23 11:35:00 EST, ECCapsule, [facility] #[id number], PUT ON FILE, 153, cm, 09/02/23 11:02:00 [...] Maintenance, 03/15/23 15:58:00 EDT, Route to PharmacyElectronically, [facility] #[id number], [place]... 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 Routine medical exam Confirmed Active Failed back surgical syndrome Confirmed Active Sacroiliac dysfunction Confirmed Active Encounter for screening colonoscopy Confirmed Active Varicose vein of leg Confirmed Active Diagnosis Diagnosis Type Effective Dates Health Status Clinical Service Informant Anxiety Discharge Diagnosis 09/02/23 Hyperlipidemia Discharge Diagnosis 09/02/23 Hypertension Discharge Diagnosis 09/02/23 Acute renal failure Discharge Diagnosis 09/02/23 Pancytopenia Discharge Diagnosis 09/02/23 Vital Signs Most recent to oldest [Reference Range]: 1 Height 153 cm (09/02/23 11:02 AM) Weight 52 kg (09/02/23 11:02 AM) Oxygen Saturation [94-100 %] 97 % (09/02/23 11:02 AM) Pulse Rate [55-90 bpm] 82 bpm (09/02/23 11:02 AM) Body Mass Index [18.5-24.99 kg/m2] 22.21 kg/m2 (09/02/23 11:02 AM) Blood Pressure [90-138/55-84 mm Hg] 128/ 84mm Hg (09/02/23 11:02 AM) Temperature [96.8-100.4 DegF] 98.7 DegF (09/02/23 11:02 AM) Mode of Delivery (Oxygen) Room air (09/02/23 11:02 AM) Blood pressure sites Arm, left (09/02/23 11:02 AM) Temperature Route Temporal (09/02/23 11:02 AM) Weight Obtained Via Standing scale (09/02/23 11:02 AM) Social History Social History Type Response Smoking Status Never smoker entered on: 07/30/13 Sex Implantable Device List Procedure Provider Procedure Date Device Type Site Repair Hernia Ventral Laparoscopic Jhoan Coppola MD 02/19/18 Unknown Abdomen Device Identifier Serial Number Lot or Batch Number Manufacturing Date Expiration Date Distinct Identification Code MRI Safety Implantable Status Assigning Authority Unknown Unknown [id number] Unknown 10/27/19 Unknown Unknown Active Unknown Note * Jadyn Villanueva: PERFORM, SIGN, VERIFY Event Display: Patient Education/Instruction Authored Date: [id number] [facility] *[facility] Clinical Summary Name JENNIE FRANCES Age 58 Years 1965 PCP Bibi Foster MD PCP Visit Date 09/02/2023 10:56:00 Patient Instructions CALL 1 WEEK BEFORE PHYSICAL TO GET REPEAT LIPID PROFILE LABS Additional Instructions: Scheduled Appointments?? Future Appointments ?*Pain??Management ?[address]??[place],??[place],??[address] ?Phone:??[phone]?Fax:??-- ?Appt. Date:??10/04/2023?8:50 AM ?Scheduled Provider:??Francesca Cash MD ?*[facility] ?[address]??[place],??[place],??[address] ?Phone:??--?Fax:??-- ?Appt. Date:??10/09/2023?11:00 AM ?Scheduled Provider:??Bibi Foster MD Follow-Up Instructions ?? Diagnosis Medications: Please continue your medications until treatment is completed or stopped by your provider. Discuss any questions related to medications with your provider. New Medications [facility][id number], [address] [place] [address] [phone], [phone] Omeprazole (omeprazole 20 mg oral enteric coated capsule) 1 capsule Oral Daily. Refills: 1. Next Dose: Medications to Continue Taking That Have Changed [facility] JP3 Measurement [facility][id number], [address] [place] [address] [phone], [phone] - Clonazepam (clonazePAM 0.5 mg oral tablet) TAKE 1 TABLET BY MOUTH TWICE DAILY NEEDED FOR ANXIETY fill when due. Refills: 2. Next Dose: Medications to Continue with No Changes These medications were not printed or sent to your pharmacy Carisoprodol (carisoprodol 350 mg oral tablet) 1 tab(s) Oral twice a day. Next Dose: Cyanocobalamin (cyanocobalamin 1000 mcg/ml injectable [...] TABLET BY MOUTH EVERY DAY. Next Dose: Tramadol (traMADol 50 mg oral tablet) 1 tab(s) Oral twice a day. Next Dose: Trazodone (traZODone 50 mg oral tablet) TAKE 1 TABLET BY MOUTH EVERY DAY AT BEDTIME. Next Dose: Trazodone (traZODone 50 mg oral tablet) 1 tab(s) Oral Daily at Bedtime for 7 Days. [facility], OTHER REFILLS TO BE DONE BY REGULAR PRESCRIBER. Refills: 0. Next Dose: No Longer Take the Following Medications Ibuprofen (Motrin 400 mg oral tablet) 1 tab(s) Oral every 4 hours. Rosuvastatin (Crestor 40 mg oral tablet) 1 tab(s) Oral Daily. Refills: 2. Allergy Info:?? NSAIDs; Crestor; morphine Medications Given This Visit Future Orders ?No future orders Vital Signs Height 153 cm Weight 52 kg BMI 22.21 kg/m2 Blood Pressure 128 mm Hg/84 mm Hg Temperature 98.7 DegF Pulse Rate 82 bpm Respiratory Rate 02 Sat Mode of Delivery 97 %/Room air You can now view a summary of your hospital visit from the comfort of your home through a free online portal called [employer]. [employer] is a website that allows you to securely view your medical information including discharge summary, medications and follow-up visits. ??You can alsosend a secure electronic message to your doctor???s office to request appointments, renew medications or just ask a question. You can enroll at [email or web address] or register during your next office [...] primary care provider, you may find a [facility] provider by calling [facility] [employer] Link at [phone]. [facility], in keeping with [facility] guidance, no longer requires face masks for [...] format to support your individualized medical care. Patient Care team information Care Team Personnel Name: Bibi Foster MD Position: [facility] Physician - Primary Care Member Role: PCP Address: Address: [address] [place] [address] [place] Care Team Related Persons Name: JOEDANIELLE DUNN Address: home [address] [place] [address] Name: ABHIJEET TAI Address: home [address] [place] [address] Name: JUANITO THOMAS Address: home [address] [place] [address] Name: SATISH FRANCES Address: home [address] [place] [address]
--- OUTSIDE RECORDS SUMMARY | 2023-11-11 09:44 | XMS_ITS | Continuity of Care Document ---
Author Organization [facility] Address [address] [place] [address]- Care Team Providers Care Cut Pressman Name Role Phone Bibi Foster MD Primary Care Physician Encounter [facility] Date(s): 04/08/23 - 05/08/23 [facility] [address] [place], [place] [address] Allergies, Adverse Reactions, Alerts Substance Reaction Severity Status morphine ITCHING DOES NOT WORK Active Immunizations Given and Recorded Vaccine Date Status Refusal Reason influenza virus vaccine, inactivated 04/23/22 Give n influenza virus vaccine, inactivated 1 07/10/19 Gi ariana influenza virus vaccine, inactivated 03/31/15 Give n tetanus-diphtheria toxoids (Td) 2 09/28/14 Given 1Result Comment: [facility]# [id number] pt. tolerated inj. without complications....CO 2Result Comment: [...] tablet, 2 Refills, Maintenance, 12/07/22 12:34:00 EDT, [facility][id number], 153, cm, 11/09/22 18:01:00 EDT, Height Start Date: 12/07/22 Status: Ordered clonazePAM 0.5 mg oral tablet See Instructions, TAKE 1 TABLET BY MOUTH TWICE DAILY NEEDED FOR ANXIETY fill when due GET LAB[facility], # 14 tablet, 0 Refills, Maintenance, 03/22/23 16:00:00 EDT, [facility] #[id number], 153, cm, 03/14/23 11:14:00 EDT, Height Start Date: 03/22/23 Status: Ordered clonazePAM 1 mg oral tablet 0.5 tablet = 0.5 mg, By Mouth, 2 times a day, To replace 0.5 mg tablet due to back order., # 30 tablet, 0 Refills, Maintenance, 04/16/23 16:20:00 EDT, [facility] #[id number], Partial fill upon patient request if the prescription is for a schedule... Start Date: 04/16/23 Stop Date: 04/23/23 Status: Ordered Crestor 40 mg oral tablet 1 tablet = 40 mg, By Mouth, Daily, # 90 tablet, 2 Refills, Maintenance, 04/05/23 16:20:00 EDT, Tablet, [facility] #[id number], Partial fill upon patient request if the prescription is for a schedule II opioid drug., 153, cm, 04/05/23 12:59:00 EDT... Start Date: 04/05/23 Status: Ordered cyanocobalamin 1000 mcg/ml injectable solution See Instructions, INJECT 1 ML IN THE MUSCLE EVERY 30 DAYS, # 1 mL, 11 Refills, Maintenance, 01/08/22 16:04:00 EDT, [facility] #[id number], 153, cm, 05/22/21 7:19:00 EST, Height Start Date: 01/08/22 Status: Ordered FLUoxetine 20 mg oral capsule 20 mg, 1, capsule, By Mouth, Daily, # 30 capsule, Refills 3, Tot. Refills 3, Maintenance, 09/19/22 15:11:00 EDT, Route to Pharmacy Electronically, [facility] #[id number], Partial fill upon patient request if the [...] Refills, Maintenance, 11/13/22 9:04:00 EDT, EC Capsule, [facility] #[id number], PUT ON FILE, 153, cm, 11/09/22 18:01:00 [...] Maintenance, 03/15/23 15:58:00 EDT, Route to PharmacyElectronically, [id number], [place]... 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 Routine medical exam [...] Safety Implantable Status Assigning Authority Unknown Unknown [id number] Unknown 10/27/19 Unknown Unknown Active Unknown Patient Care team information Care Team Personnel Name: Bibi Foster MD Position: [facility] Physician - Primary Care Member Role: PCP Address: Address: [address] [place] [address]- Care Team Related Persons Name: DANIELLE AVILES Address: home [address] [place] [address] Name: ABHIJEET TAI Address: home [address] [place] [address] Name: JUANITO THOMAS Address: home [address] [place] [address] Name: SATISH FRANCES Address: home [address] [place] [address]
--- OUTSIDE RECORDS SUMMARY | 2023-11-11 09:44 | XMS_ITS | Continuity of Care Document ---
Author Organization [facility] Address [address] [place] [address]- Care Team Providers Care Senior Web Services Developer Name Role Phone Crisitan JOHNSTON, Bibi Singh Primary Care Physician [phone] Encounter [facility] [place] [facility] Date(s): 09/18/19 - 09/28/19 [facility] [address] [place] [address]- [facility] Attending Physician: Bebo Donis Admitting Physician: Bebo Donis Referring Physician: Bebo Donis Allergies, Adverse Reactions, Alerts Substance Reaction Severity Status morphine ITCHING DOES NOT WORK Active Immunizations Given and Recorded Vaccine Date Status Refusal Reason influenza virus vaccine, inactivated 1 07/10/19 Gi ariana influenza virus vaccine, inactivated 03/31/15 Give n tetanus-diphtheria toxoids (Td) 2 09/28/14 Given 1Result Comment: [facility]# [id number] pt. tolerated inj. without complications....CO 2Result Comment: [...] DAYS, # 1 mL, 3 Refills, Maintenance, [facility] #[id number], 153, cm, 07/10/19 11:20:00 EST, Height, 56.8, kg, 07/10/19 10:40:00 EST, Dry Weight Start Date: 09/07/19 Status: Ordered FLUoxetine 20 mg oral capsule 20 mg, 1, capsule, By Mouth, Daily, # 90 capsule, Refills 1, Tot. Refills 1, Maintenance, 01/30/19 16:03:12 EDT, Route to Pharmacy Electronically, [id number], [facility] #[id number] Start Date: 01/30/19 Status: Ordered Imodium A-D [...] 2 Refills, Maintenance, 07/10/19 11:24:00 EST, [facility], [facility][id number], PUT ON FILE, 153, cm, 07/10/19 11:20:00 [...] Factors(Confirmed) Active Palpitations(Confirmed) Active *[facility] [phone] 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 Failed back surgical syndrome(Confirmed) Active Encounter for screening colonoscopy(Confirmed) Active Varicose vein of leg(Confirmed) Active Social History Social History Type Response Smoking Status Never smoker entered on: 07/30/13 Sex Medical Equipment Implanted Date:02/19/18Target Site:Abdomen Description Quantity MRI Company Model PATCH HERNIA VENTRALEX LG CI R - BARD ([id number]) [address] BARD Unknown MAIDA:No Information Assigning Authority: FDA
--- OUTSIDE RECORDS SUMMARY | 2023-11-11 09:44 | XMS_ITS | Continuity of Care Document ---
Author Organization [facility] Address [address] [place] [address]- Care Team Providers Care Putty Mixer Name Role Phone Bibi Foster MD Primary Care Physician [facility] [facility] Date(s): 10/23/22 - 10/30/22 [facility] [address] [place], [place] [address] Encounter Diagnosis Anxiety(Discharge Diagnosis) - 10/23/22 Hyperlipidemia(Discharge Diagnosis) - 10/23/22 Attending Physician: Bibi Foster MD Allergies, Adverse Reactions, Alerts Substance Reaction Severity Status morphine ITCHING DOES NOT WORK Active Immunizations Given and Recorded Vaccine Date Status Refusal Reason influenza virus vaccine, inactivated 04/23/22 Give n influenza virus vaccine, inactivated 1 07/10/19 Gi ariana influenza virus vaccine, inactivated 03/31/15 Give n tetanus-diphtheria toxoids (Td) 2 09/28/14 Given 1Result Comment: [facility] [id number] pt. tolerated inj. without complications....CO 2Result Comment: [...] tablet, 2 Refills, Maintenance, 09/04/22 16:14:00 EST, [facility] #[id number], 153, cm, 06/22/22 7:55:00 EST, Height Start Date: 09/04/22 Status: Ordered cyanocobalamin 1000 mcg/ml injectable solution See Instructions, INJECT 1 ML IN THE MUSCLE EVERY 30 DAYS, # 1 mL, 11 Refills, Maintenance, 01/08/22 16:04:00 EDT, [facility] #55683, 153, cm, 05/22/21 7:19:00 EST, Height Start Date: 01/08/22 Status: Ordered FLUoxetine 20 mg oral capsule 20 mg, 1, capsule, By Mouth, Daily, # 30 capsule, Refills 3, Tot. Refills 3, Maintenance, 09/19/22 15:11:00 EDT, Route to Pharmacy Electronically, [facility] #[id number], Partial fill upon patient request if the [...] 1 Refills, Maintenance, 01/08/22 16:03:00 EDT, ECCapsule, [facility] #[id number], PUT ON FILE, 153, cm, 05/22/21 7:19:00 EST, Height Start Date: 01/08/22 Status: Ordered syringe and needles syringe and needles, See Instructions, # 3 each, Refills 1, Tot. Refills 1, Maintenance, syringe 3cc needles 25 g X 1 inch for use with b12, 01/08/22 16:02:00 EDT, Compound, 153, cm, 11/22/21 7:19:00EST, Height Start Date: 01/08/22 Status: Ordered [...] Factors Confirmed Active Palpitations Confirmed Active *[facility] [phone] HOME CARE ASSOCIATE SEAN SILVERMAN Confirmed Active Routine medical exam Confirmed Active Failed back surgical syndrome Confirmed Active Sacroiliac dysfunction Confirmed Active Encounter for screening colonoscopy Confirmed Active Varicose vein of leg Confirmed Active Diagnosis Diagnosis Type Effective Dates Health Status Cl inical Service Informant Anxiety Discharge Diagnosis 10/23/22 Hyperlipidemia Discharge Diagnosis 10/23/22 Social History Social History Type Response Smoking Status Never smoker entered on: 07/30/13 Sex Implantable Device List Procedure Provider Procedure Date Device Type Site Repair Hernia Ventral Laparoscopic Jhoan Coppola MD 02/19/18 Unknown Abdomen Device Identifier Serial Number Lot or Batch Number Manufacturing Date Expiration Date Distinct Identification Code MRI Safety Implantable Status Assigning Authority Unknown Unknown [id number] Unknown 10/27/19 Unknown Unknown Active Unknown Patient Care team information Care Team Personnel Name: Bibi Foster MD Position: [facility] Primary Care Physician Member Role: PCP Address: Address: [address] [place] [address] Care Team Related Persons Name: DANIELLE AVILES Address: home [address] [place] [address] Name: ABHIJEET TAI Address: home [address] [place] [address] Name: JUANITO THOMAS Address: home [address] [place] [address] Name: SATISH FRANCES Address: home [address] [place] [address]
--- OUTSIDE RECORDS SUMMARY | 2023-11-11 09:44 | XMS_ITS | Continuity of Care Document ---
Author Organization [facility] Address [address] [place] [address]- Care Team Providers Care Assistant Food Service Director Name Role Phone Bibi Foster MD Primary Care Physician [phone] [facility] [facility] Date(s): 04/08/23 - 05/08/23 [facility] [address] [place], [place] [address] Allergies, Adverse Reactions, Alerts Substance Reaction Severity Status morphine ITCHING DOES NOT WORK Active Immunizations Given and Recorded Vaccine Date Status Refusal Reason influenza virus vaccine, inactivated 04/23/22 Give n influenza virus vaccine, inactivated 1 07/10/19 Gi ariana influenza virus vaccine, inactivated 03/31/15 Give n tetanus-diphtheria toxoids (Td) 2 09/28/14 Given 1Result Comment: [facility]# [id number] pt. tolerated inj. without complications....CO 2Result Comment: [...] tablet, 2 Refills, Maintenance, 12/07/22 12:34:00 EDT, [facility] #[id number], 153, cm, 11/09/22 18:01:00 EDT, Height Start Date: 12/07/22 Status: Ordered clonazePAM 0.5 mg oral tablet See Instructions, TAKE 1 TABLET BY MOUTH TWICE DAILY NEEDED FOR ANXIETY fill when due [facility], # 14 tablet, 0 Refills, Maintenance, 03/22/23 16:00:00 EDT, [facility] #[id number], 153, cm, 03/14/23 11:14:00 EDT, Height Start Date: 03/22/23 Status: Ordered clonazePAM 1 mg oral tablet 0.5 tablet = 0.5 mg, By Mouth, 2 times a day, To replace 0.5 mg tablet due to back order., # 30 tablet, 0 Refills, Maintenance, 04/16/23 16:20:00 EDT, [facility] #87351, Partial fill upon patient request if the prescription is for a schedule... Start Date: 04/16/23 Stop Date: 04/23/23 Status: Ordered Crestor 40 mg oral tablet 1 tablet = 40 mg, By Mouth, Daily, # 90 tablet, 2 Refills, Maintenance, 04/05/23 16:20:00 EDT, Tablet, [facility] #32299, Partial fill upon patient request if the prescription is for a schedule II opioid drug., 153, cm, 04/05/23 12:59:00 EDT... Start Date: 04/05/23 Status: Ordered cyanocobalamin 1000 mcg/ml injectable solution See Instructions, INJECT 1 ML IN THE MUSCLE EVERY 30 DAYS, # 1 mL, 11 Refills, Maintenance, 01/08/22 16:04:00 EDT, [facility] #[id number], 153, cm, 05/22/21 7:19:00 EST, Height Start Date: 01/08/22 Status: Ordered FLUoxetine 20 mg oral capsule 20 mg, 1, capsule, By Mouth, Daily, # 30 capsule, Refills 3, Tot. Refills 3, Maintenance, 09/19/22 15:11:00 EDT, Route to Pharmacy Electronically, [facility] #[id number], Partial fill upon patient request if the [...] Refills, Maintenance, 11/13/22 9:04:00 EDT, EC Capsule, [facility] #[id number], PUT ON FILE, 153, cm, 11/09/22 18:01:00 [...] Maintenance, 03/15/23 15:58:00 EDT, Route to PharmacyElectronically, [facility] #[id number], [place]... 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 Routine medical exam [...] Safety Implantable Status Assigning Authority Unknown Unknown [id number] Unknown 10/27/19 Unknown Unknown Active Unknown Patient Care team information Care Team Personnel Name: Bibi Foster MD Position: [facility] Physician - Primary Care Member Role: PCP Address: Address: [address] [place] [address]- Care Team Related Persons Name: DANIELLE AVILES Address: home [address] [place] [address] Name: ABHIJEET TAI Address: home [address] [place] [address] Name: JUANITO THOMAS Address: home [address] [place] [address] Name: SATISH FRANCES Address: home [address] [place] [address]
--- OUTSIDE RECORDS SUMMARY | 2023-11-11 09:44 | XMS_ITS | Continuity of Care Document ---
Author Organization [facility] Address [address] [place] [address]- Care Team Providers Care Baking Powder Mixer Name Role Phone Bibi Foster MD Primary Care Physician [phone] Encounter [facility] Date(s): 08/22/23 - 09/21/23 [facility] [address] [place] [address]- Allergies, Adverse Reactions, Alerts Substance Reaction Severity Status morphine ITCHING DOES NOT WORK Active NSAIDs acute renal failure Active Crestor transaminitis Active Immunizations Given and Recorded Vaccine Date Status Refusal Reason influenza virus vaccine, inactivated 04/23/22 Give n influenza virus vaccine, inactivated 1 07/10/19 Gi ariana influenza virus vaccine, inactivated 03/31/15 Give n tetanus-diphtheria toxoids (Td) 2 09/28/14 Given 1Result Comment: [facility]# [id number] pt. tolerated inj. without complications....CO 2Result Comment: [...] tablet, 2 Refills, Maintenance, 09/02/23 11:36:00 EST, [facility] #[id number], 153, cm, 09/02/23 11:02:00 EST, Height Start Date: 09/02/23 Status: Ordered cyanocobalamin 1000 mcg/ml injectable solution See Instructions, INJECT 1 ML IN THE MUSCLE EVERY 30 DAYS, # 1 mL, 11 Refills, Maintenance, 05/27/23 15:22:00 EST, [facility] #[id number], 153, cm, 04/05/23 12:59:00 EDT, Height Start Date: 05/27/23 Status: Ordered FLUoxetine 20 mg oral capsule 20 mg, 1, capsule, By Mouth, Daily, # 30 capsule, Refills 3, Tot. Refills 3, Maintenance, 09/19/22 15:11:00 EDT, Route to Pharmacy Electronically, [facility] #[id number], Partial fill upon patient request if the [...] 1 Refills, Maintenance, 09/02/23 11:35:00 EST, ECCapsule, [facility] #[id number], PUT ON FILE, 153, cm, 09/02/23 11:02:00 [...] Refills, Maintenance, 05/21/19 8:22:21 EST Start Date: 11/21/19 Status: Ordered traZODone 50 mg oral tablet 50 mg, 1, tablet, By Mouth, Daily at bedtime, [facility], OTHER REFILLS TO BE DONE BY REGULAR PRESCRIBER, # 7 tablet, Refills 0, Tot. Refills 0, Maintenance, 03/15/23 15:58:00 EDT, Route to PharmacyElectronically, [facility] #[id number], [place]... 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 Active Routine medical exam [...] Safety Implantable Status Assigning Authority Unknown Unknown [id number] Unknown 10/27/19 Unknown Unknown Active Unknown Patient Care team information Care Team Personnel Name: Bibi Foster MD Position: [facility] Physician - Primary Care Member Role: PCP Address: Address: [address] [place] [address] Care Team Related Persons Name: DANIELLE AVILES Address: home [address] [place] [address] Name: ABHIJEET TAI Address: home [address] [place] [address] Name: JUANITO THOMAS Address: home [address] [place] [address] Name: SATISH FRANCES Address: home [address] [place] [address]
--- OUTSIDE RECORDS SUMMARY | 2023-11-11 09:44 | XMS_ITS | Continuity of Care Document ---
Author Organization [facility] Address [address] [place] [address]- Care Team Providers Care Forestry Adviser Name Role Phone Bibi Foster MD Primary Care Physician En[place] [facility] Date(s): 01/12/23 - 05/12/23 [facility] [address] [address]- Attending Physician: Juana Wesley MD Admitting Physician: Juana Wesley MD Referring Physician: Bibi Foster MD Allergies, Adverse Reactions, Alerts Substance Reaction Severity Status morphine ITCHING DOES NOT WORK Active Immunizations Given and Recorded Vaccine Date Status Refusal Reason influenza virus vaccine, inactivated 04/23/22 Give n influenza virus vaccine, inactivated 1 07/10/19 Gi ariana influenza virus vaccine, inactivated 03/31/15 Give n tetanus-diphtheria toxoids (Td) 2 09/28/14 Given 1Result Comment: [facility]# [id number] pt. tolerated inj. without complications....CO 2Result Comment: [...] tablet, 2 Refills, Maintenance, 12/07/22 12:34:00 EDT, [facility] #[id number], 153, cm, 11/09/22 18:01:00 EDT, Height Start Date: 12/07/22 Status: Ordered clonazePAM 0.5 mg oral tablet See Instructions, TAKE 1 TABLET BY MOUTH TWICE DAILY NEEDED FOR ANXIETY fill when due GET LABS, # 14 tablet, 0 Refills, Maintenance, 03/22/23 16:00:00 EDT, [facility] #[id number], 153, cm, 03/14/23 11:14:00 EDT, Height Start Date: 03/22/23 Status: Ordered clonazePAM 1 mg oral tablet 0.5 tablet = 0.5 mg, By Mouth, 2 times a day, To replace 0.5 mg tablet due to back order., # 30 tablet, 0 Refills, Maintenance, 04/16/23 16:20:00 EDT, [facility] #25362, Partial fill upon patient request if the prescription is for a schedule... Start Date: 04/16/23 Stop Date: 04/23/23 Status: Ordered Crestor 40 mg oral tablet 1 tablet = 40 mg, By Mouth, Daily, # 90 tablet, 2 Refills, Maintenance, 04/05/23 16:20:00 EDT, Tablet, [facility] #87520, Partial fill upon patient request if the prescription is for a schedule II opioid drug., 153, cm, 04/05/23 12:59:00 EDT... Start Date: 04/05/23 Status: Ordered cyanocobalamin 1000 mcg/ml injectable solution See Instructions, INJECT 1 ML IN THE MUSCLE EVERY 30 DAYS, # 1 mL, 11 Refills, Maintenance, 01/08/22 16:04:00 EDT, [facility] #[id number], 153, cm, 05/22/21 7:19:00 EST, Height Start Date: 01/08/22 Status: Ordered FLUoxetine 20 mg oral capsule 20 mg, 1, capsule, By Mouth, Daily, # 30 capsule, Refills 3, Tot. Refills 3, Maintenance, 09/19/22 15:11:00 EDT, Route to Pharmacy Electronically, [facility] #[id number], Partial fill upon patient request if the [...] Refills, Maintenance, 11/13/22 9:04:00 EDT, EC Capsule, [facility] #[id number], PUT ON FILE, 153, cm, 11/09/22 18:01:00 [...] Maintenance, 03/15/23 15:58:00 EDT, Route to PharmacyElectronically, [facility] #[id number], [place]... Start Date: 03/15/23 Stop Date: 03/22/23 [...] Psychological Factors Confirmed Active Palpitations Confirmed Active *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 Routine medical exam [...] Safety Implantable Status Assigning Authority Unknown Unknown [id number] Unknown 10/27/19 Unknown Unknown Active Unknown Patient Care team information Care Team Personnel Name: Bibi Foster MD Position: [facility] Physician - Primary Care Member Role: PCP Address: Address: [address] [place] [address] Care Team Related Persons Name: DANIELLE AVILES Address: [address] [place] [address] Name: ABHIJEET TAI Address: home [address] [place] [address] Name: JUANITO THOMAS Address: [address] [place] [address] Name: SATISH FRANCES Address: home [address] [place] [address]
--- OUTSIDE RECORDS SUMMARY | 2023-11-11 09:44 | XMS_ITS | Continuity of Care Document ---
Author Organization [facility] Address [address] [place] [address]- Care Team Providers Care Tea And Spice Supervisor Name Role Phone Bibi Foster MD Primary Care Physician Encounter [facility] Date(s): 01/18/22 - 02/17/22 [facility] [address] [place], [place] [address] Allergies, Adverse Reactions, Alerts Substance Reaction Severity Status morphine ITCHING DOES NOT WORK Active Immunizations Given and Recorded Vaccine Date Status Refusal Reason influenza virus vaccine, inactivated 1 07/10/19 Gi ariana influenza virus vaccine, inactivated 03/31/15 Give n tetanus-diphtheria toxoids (Td) 2 09/28/14 Given 1Result Comment: [facility]# [id number] pt. tolerated inj. without complications....CO 2Result Comment: [...] due, # 60 tablet, 1 Refills, Maintenance, 01/19/22 17:02:00 EDT, [facility] #[id number], 153, cm, 05/22/21 7:19:00 EST, Height Start Date: 01/19/22 Status: Ordered cyanocobalamin 1000 mcg/ml injectable solution See Instructions, INJECT 1 ML IN THE MUSCLE EVERY 30 DAYS, # 1 mL, 11 Refills, Maintenance, 01/08/22 16:04:00 EDT, [facility] #[id number], 153, cm, 05/22/21 7:19:00 EST, Height Start [...] 1 Refills, Maintenance, 01/08/22 16:03:00 EDT, ECCapsule, [facility] #[id number], PUT ON FILE, 153, cm, 05/22/21 7:19:00 [...] Factors(Confirmed) Active Palpitations(Confirmed) Active *[facility] [phone] 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
--- OUTSIDE RECORDS SUMMARY | 2023-11-11 09:44 | XMS_ITS | Continuity of Care Document ---
Author Organization [facility] Address [address] [place] [address]- Care Team Providers Care Sculpture Instructor Name Role Phone Bibi Foster MD Primary Care Physician Encounter [facility] [place] Date(s): 08/24/20 - 08/31/20 [facility] [address] [place], [place] [address] Encounter Diagnosis Failed back surgical syndrome(Discharge Diagnosis) - 08/24/20 Routine medical exam(Discharge Diagnosis) - 08/24/20 Attending Physician: Bibi Foster MD Allergies, Adverse Reactions, Alerts Substance Reaction Severity Status morphine ITCHING DOES NOT WORK Active Immunizations Given and Recorded Vaccine Date Status Refusal Reason influenza virus vaccine, inactivated 1 07/10/19 Gi ariana influenza virus vaccine, inactivated 03/31/15 Give n tetanus-diphtheria toxoids (Td) 2 09/28/14 Given 1Result Comment: [facility]# [id number] pt. tolerated inj. without complications....CO 2Result Comment: [09/28/2014] given without incident.....vs Medications clonazePAM 0.5 mg oral tablet See Instructions, TAKE 1 TABLET BY MOUTH TWICE DAILY NEEDED FOR ANXIETY, # 60 tablet, 2 Refills,Maintenance, 07/28/20 10:21:00 EST, [facility] #[id number], 153, cm, 06/22/20 8:13:00 EST, Height, 56.8, kg, 07/10/19 10:40:00 EST, Dry Weight Start Date: 07/28/20 Status: Ordered cyanocobalamin 1000 mcg/ml injectable solution See Instructions, INJECT 1 ML IN THE MUSCLE EVERY 30 DAYS, # 1 mL, 11 Refills, Maintenance, 08/29/20 16:23:00 EST, [facility] #[id number], 153, cm, 08/24/20 10:52:00 EST, Height, 56.8, [...] 3 Refills, Maintenance, 08/24/20 11:19:00 EST, ECCapsule, [facility] #[id number], PUT ON FILE, 153, cm, 08/24/20 10:52:00 EST, Height, 56.8, kg, 07/10/19 10:40:00 EST, Dry Weight Start Date: 08/24/20 Status: Ordered predniSONE 10 mg oral tablet See Instructions, 4 tabs x 2 days, 3 tabs x 2 days, 2 tabs x 2 days, 1 tab x 2 days, # 20 tablet, 0Refills, Acute 09/10/20 11:15:00 EST, 08/24/20 11:13:00 EST, Tablet, [facility] #[id number], Partial fill upon patient request if the [...] Psychological Factors(Confirmed) Active Palpitations(Confirmed) Active *[facility] [phone] 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 Routine medical exam(Confirmed) Active Failed back surgical syndrome(Confirmed) Active Sacroiliac dysfunction(Confirmed) Active Encounter for screening colonoscopy(Confirmed) Active Varicose vein of leg(Confirmed) Active Diagnosis Diagnosis Type Effective Dates Health Status Cl inical Service Informant Failed back surgical syndrome Discharge Diagnosis 08/24/20 Routine medical exam Discharge Diagnosis 08/24/20 Vital Signs Most recent to oldest [Reference Range]: 1 Height 153 cm (08/24/20 10:52 AM) Weight 57.0 kg (08/24/20 10:52 AM) Oxygen Saturation [94-100 %] 98 % (08/24/20 10:52 AM) Pulse Rate [55-90 bpm] 83 bpm (08/24/20 10:52 AM) Body Mass Index [18.5-24.99] 24.35 (08/24/20 10:52 AM) Blood Pressure [90-138/55-84 mm Hg] 130/ 78mm Hg (08/24/20 10:52 AM) Respiratory Rate [16-30 br/min] 16 br/mi n (08/24/20 10:52 AM) Temperature [96.8-100.4 DegF] 97.3 DegF (08/24/20 10:52 AM) Mode of Delivery (Oxygen) Room air (08/24/20 10:52 AM) Blood pressure sites Arm, left (08/24/20 10:52 AM) Temperature Route Temporal (08/24/20 10:52 AM) Weight Obtained Via Standing scale (2/24/21 10:52 AM) Social History Social History Type Response Smoking Status Never smoker entered on: 07/30/13 Sex Medical Equipment Implanted Date:02/19/18Target Site:Abdomen Description Quantity MRI Company Model PATCH HERNIA VENTRALEX LG CI R - BARD ([id number]) [address] BARD Unknown MAIDA:No Information Assigning Authority: FDA
--- OUTSIDE RECORDS SUMMARY | 2023-11-11 09:44 | XMS_ITS | Continuity of Care Document ---
Author Organization [facility] Address [address] [place] [address]- Care Team Providers Care Physical Therapy Supervisor Name Role Phone Bibi Foster MD Primary Care Physician Encounter [facility] Date(s): 09/26/20 - 10/26/20 [facility] [address] [place], [place] [address] Allergies, Adverse Reactions, Alerts Substance Reaction Severity Status morphine ITCHING DOES NOT WORK Active Immunizations Given and Recorded Vaccine Date Status Refusal Reason influenza virus vaccine, inactivated 1 07/10/19 Gi ariana influenza virus vaccine, inactivated 03/31/15 Give n tetanus-diphtheria toxoids (Td) 2 09/28/14 Given 1Result Comment: [facility]# [id number] pt. tolerated inj. without complications....CO 2Result Comment: [09/28/2014] given without incident.....vs Medications clonazePAM 0.5 mg oral tablet See Instructions, TAKE 1 TABLET BY MOUTH TWICE DAILY NEEDED FOR ANXIETY, # 60 tablet, 2 Refills,Maintenance, 09/26/20 15:13:00 EDT, [facility] #[id number], 153, cm, 08/24/20 10:52:00 EST, Height, 56.8, kg, 07/10/19 10:40:00 EST, Dry Weight Start Date: 09/26/20 Status: Ordered cyanocobalamin 1000 mcg/ml injectable solution See Instructions, INJECT 1 ML IN THE MUSCLE EVERY 30 DAYS, # 1 mL, 11 Refills, Maintenance, 08/29/20 16:23:00 EST, [facility] #[id number], 153, cm, 08/24/20 10:52:00 EST, Height, 56.8, [...] 3 Refills, Maintenance, 08/24/20 11:19:00 EST, ECCapsule, [facility] #[id number], PUT ON FILE, 153, cm, 08/24/20 10:52:00 [...] Psychological Factors(Confirmed) Active Palpitations(Confirmed) Active *[facility] [phone] 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
--- OUTSIDE RECORDS SUMMARY | 2023-11-11 09:44 | XMS_ITS | Continuity of Care Document ---
Author Organization [facility] Address [address] [place] [address]- Care Team Providers Care Canine Service Instructor Trainer Name Role Phone Bibi Foster MD Primary Care Physician En[place] [facility] Date(s): 04/16/23 - 05/16/23 [facility] [address] [place], [place] [address] Allergies, Adverse Reactions, Alerts Substance Reaction Severity Status morphine ITCHING DOES NOT WORK Active Immunizations Given and Recorded Vaccine Date Status Refusal Reason influenza virus vaccine, inactivated 04/23/22 Give n influenza virus vaccine, inactivated 1 07/10/19 Gi ariana influenza virus vaccine, inactivated 03/31/15 Give n tetanus-diphtheria toxoids (Td) 2 09/28/14 Given 1Result Comment: [facility]# [id number] pt. tolerated inj. without complications....CO 2Result Comment: [...] tablet, 2 Refills, Maintenance, 12/07/22 12:34:00 EDT, [facility] #[id number], 153, cm, 11/09/22 18:01:00 EDT, Height Start Date: 12/07/22 Status: Ordered clonazePAM 0.5 mg oral tablet See Instructions, TAKE 1 TABLET BY MOUTH TWICE DAILY NEEDED FOR ANXIETY fill when due [facility], # 14 tablet, 0 Refills, Maintenance, 03/22/23 16:00:00 EDT, [facility] #[id number], 153, cm, 03/14/23 11:14:00 EDT, Height Start Date: 03/22/23 Status: Ordered clonazePAM 1 mg oral tablet 0.5 tablet = 0.5 mg, By Mouth, 2 times a day, To replace 0.5 mg tablet due to back order., # 30 tablet, 0 Refills, Maintenance, 04/16/23 16:20:00 EDT, [facility] #56172, Partial fill upon patient request if the prescription is for a schedule... Start Date: 04/16/23 Stop Date: 04/23/23 Status: Ordered Crestor 40 mg oral tablet 1 tablet = 40 mg, By Mouth, Daily, # 90 tablet, 2 Refills, Maintenance, 04/05/23 16:20:00 EDT, Tablet, [facility] #[id number], Partial fill upon patient request if the prescription is for a schedule II opioid drug., 153, cm, 04/05/23 12:59:00 EDT... Start Date: 04/05/23 Status: Ordered cyanocobalamin 1000 mcg/ml injectable solution See Instructions, INJECT 1 ML IN THE MUSCLE EVERY 30 DAYS, # 1 mL, 11 Refills, Maintenance, 01/08/22 16:04:00 EDT, [facility] #[id number], 153, cm, 05/22/21 7:19:00 EST, Height Start Date: 01/08/22 Status: Ordered FLUoxetine 20 mg oral capsule 20 mg, 1, capsule, By Mouth, Daily, # 30 capsule, Refills 3, Tot. Refills 3, Maintenance, 09/19/22 15:11:00 EDT, Route to Pharmacy Electronically, [facility] #[id number], Partial fill upon patient request if the [...] Refills, Maintenance, 11/13/22 9:04:00 EDT, EC Capsule, [facility] #[id number], PUT ON FILE, 153, cm, 11/09/22 18:01:00 [...] Maintenance, 03/15/23 15:58:00 EDT, Route to PharmacyElectronically, [facility] #[id number], [place]... 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 Routine medical exam [...] Safety Implantable Status Assigning Authority Unknown Unknown [id number] Unknown 10/27/19 Unknown Unknown Active Unknown Patient Care team information Care Team Personnel Name: Bibi Foster MD Position: [facility] Physician - Primary Care Member Role: PCP Address: Address: [address] [place] [address]- Care Team Related Persons Name: DANIELLE AVILES Address: [address] [place] [address] Name: ABHIJEET TAI Address: home [address] [place] [address] Name: JUANITO THOMAS Address: home [address] [place] [address] Name: SATISH FRANCES Address: home [address] [place] [address]
--- OUTSIDE RECORDS SUMMARY | 2023-11-11 09:44 | XMS_ITS | Continuity of Care Document ---
Author Organization [facility] Address [address] [place] [address]- Care Team Providers Care Neonatal Social Worker Name Role Phone Bibi Foster MD Primary Care Physician [phone] Encounter [facility] Date(s): 09/24/23 - 10/24/23 [facility] [address] [place] [address]- Allergies, Adverse Reactions, Alerts Substance Reaction Severity [...] 1Result Comment: [facility]# [id number] pt. tolerated inj. without complications....CO 2Result Comment: [...] tablet, 2 Refills, Maintenance, 09/02/23 11:36:00 EST, [facility] #[id number], 153, cm, 09/02/23 11:02:00 EST, Height Start Date: 09/02/23 Status: Ordered cyanocobalamin 1000 mcg/ml injectable solution See Instructions, INJECT 1 ML IN THE MUSCLE EVERY 30 DAYS, # 1 mL, 11 Refills, Maintenance, 05/27/23 15:22:00 EST, [facility] #[id number], 153, cm, 04/05/23 12:59:00 EDT, Height Start Date: 05/27/23 Status: Ordered FLUoxetine 20 mg oral capsule 20 mg, 1, capsule, By Mouth, Daily, # 30 capsule, Refills 3, Tot. Refills 3, Maintenance, 09/19/22 15:11:00 EDT, Route to Pharmacy Electronically, [facility] #[id number], Partial fill upon patient request if the [...] 1 Refills, Maintenance, 09/02/23 11:35:00 EST, ECCapsule, [facility] #[id number], PUT ON FILE, 153, cm, 09/02/23 11:02:00 [...] 0, Maintenance, 03/15/23 15:58:00 EDT[id number], [place]... 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 Active Routine medical exam Confirmed Active Routine check-up Confirmed Active Failed back surgical syndrome Confirmed Active Sacroiliac dysfunction Confirmed Active Encounter for screening colonoscopy Confirmed Active Varicose vein of leg Confirmed Active Vital Signs Most recent to oldest [Reference Range]: 1 Height 153 cm (09/25/23 10:55 AM) Weight 52 kg (09/25/23 10:55 AM) Social History Social History Type Response Smoking Status Never smoker entered on: 07/30/13 Sex Implantable Device List Procedure Provider Procedure Date Device Type Site Repair Hernia Ventral Laparoscopic Jhoan Coppola MD 02/19/18 Unknown Abdomen Device Identifier Serial Number Lot or Batch Number Manufacturing Date Expiration Date Distinct Identification Code MRI Safety Implantable Status Assigning Authority Unknown Unknown [id number] Unknown 10/27/19 Unknown Unknown Active Unknown Patient Care team information Care Team Personnel Name: Bibi Foster MD Position: [facility] Physician - Primary Care Member Role: PCP Address: Address: [address] [place] [address] Care Team Related Persons Name: DANIELLE AVILES Address: home [address] [place] [address] Name: ABHIJEET TAI Address: home [address] [place] [address] Name: JUANITO THOMAS Address: home [address] [place], [place] Name: SATISH FRANCES Address: home [address] [place] [address]
--- OUTSIDE RECORDS SUMMARY | 2023-11-11 09:44 | XMS_ITS | Continuity of Care Document ---
Author Organization [facility] Address [address] [place] [address]- Care Team Providers Care Business Office Specialist Name Role Phone Cristian JOHNSTON, Bibi Singh Primary Care Physician [place] [facility] Date(s): 06/21/23 - 11/03/23 [facility] [address] [place] [address]- Attending Physician: Francesca Cash MD Admitting Physician: Francesca Cash MD Allergies, Adverse Reactions, Alerts Substance Reaction Severity Status morphine ITCHING DOES NOT WORK Active Crestor transaminitis Active NSAIDs acute renal failure Active Immunizations Given and Recorded Vaccine Date Status Refusal Reason influenza virus vaccine, inactivated 04/23/22 Give n influenza virus vaccine, inactivated 1 07/10/19 Gi ariana influenza virus vaccine, inactivated 03/31/15 Give n tetanus-diphtheria toxoids (Td) 2 09/28/14 Given 1Result Comment: [facility]# [id number] pt. tolerated inj. without complications....CO 2Result Comment: [...] tablet, 2 Refills, Maintenance, 09/02/23 11:36:00 EST, [facility] #[id number], 153, cm, 09/02/23 11:02:00 EST, Height Start Date: 09/02/23 Status: Ordered cyanocobalamin 1000 mcg/ml injectable solution See Instructions, INJECT 1 ML IN THE MUSCLE EVERY 30 DAYS, # 1 mL, 11 Refills, Maintenance, 05/27/23 15:22:00 EST, [facility] #87714, 153, cm, 04/05/23 12:59:00 EDT, Height Start Date: 05/27/23 Status: Ordered FLUoxetine 20 mg oral capsule 20 mg, 1, capsule, By Mouth, Daily, # 30 capsule, Refills 3, Tot. Refills 3, Maintenance, 09/19/22 15:11:00 EDT, Route to Pharmacy Electronically, [facility] #[id number], Partial fill upon patient request if the [...] 1 Refills, Maintenance, 09/02/23 11:35:00 EST, ECCapsule, [facility] #[id number], PUT ON FILE, 153, cm, 09/02/23 11:02:00 [...] Maintenance, 03/15/23 15:58:00 EDT, Route to PharmacyElectronically, [facility] #[id number], [place]... 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 Routine medical [...] Safety Implantable Status Assigning Authority Unknown Unknown [id number] Unknown 10/27/19 Unknown Unknown Active Unknown Patient Care team information Care Team Personnel Name: Bibi Foster MD Position: [facility] Physician - Primary Care Member Role: PCP Address: Address: [address] [place] [address]- Care Team Related Persons Name: DANIELLE AVILES Address: [address] [place] [address] Name: ABHIJEET TAI Address: home [address] [place] [address] Name: JUANITO THOMAS Address: home [address] [place] [address] Name: SATISH FRANCES Address: home [address] [address]
--- OUTSIDE RECORDS SUMMARY | 2023-11-11 09:44 | XMS_ITS | Continuity of Care Document ---
Author Organization [facility] Address [address] [place] [address]- Care Team Providers Care Tyre Builder Name Role Phone Bibi Foster MD Primary Care Physician [phone] Encounter [facility] Date(s): 06/03/21 - 10/01/21 [facility] [address] [place], [place] [address] Attending Physician: Bibi Foster MD Allergies, Adverse Reactions, Alerts Substance Reaction Severity Status morphine ITCHING DOES NOT WORK Active Immunizations Given and Recorded Vaccine Date Status Refusal Reason influenza virus vaccine, inactivated 1 07/10/19 Gi ariana influenza virus vaccine, inactivated 03/31/15 Give n tetanus-diphtheria toxoids (Td) 2 09/28/14 Given 1Result Comment: [facility]# [id number] pt. tolerated inj. 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
--- OUTSIDE RECORDS SUMMARY | 2023-11-11 09:44 | XMS_ITS | Continuity of Care Document ---
Author Organization [facility] Address [address] [place] [address]- Care Team Providers Care Computer Equipment Installer Name Role Phone Bibi Foster MD Primary Care Physician [place] [facility] [place] 12/05[place]22 - 01/04/23 [facility] [address] [place], [place] [address] Allergies, Adverse Reactions, Alerts Substance Reaction Severity Status morphine ITCHING DOES NOT WORK Active Immunizations Given and Recorded Vaccine Date Status Refusal Reason influenza virus vaccine, inactivated 04/23/22 Give n influenza virus vaccine, inactivated 1 07/10/19 Gi ariana influenza virus vaccine, inactivated 03/31/15 Give n tetanus-diphtheria toxoids (Td) 2 09/28/14 Given 1Result Comment: [facility]# [id number] pt. tolerated inj. without complications....CO 2Result Comment: [...] tablet, 2 Refills, Maintenance, 12/07/22 12:34:00 EDT, [facility] #24905, 153, cm, 11/09/22 18:01:00 EDT, Height Start Date: 12/07/22 Status: Ordered cyanocobalamin 1000 mcg/ml injectable solution See Instructions, INJECT 1 ML IN THE MUSCLE EVERY 30 DAYS, # 1 mL, 11 Refills, Maintenance, 01/08/22 16:04:00 EDT, [facility] #[id number], 153, cm, 05/22/21 7:19:00 EST, Height Start Date: 01/08/22 Status: Ordered FLUoxetine 20 mg oral capsule 20 mg, 1, capsule, By Mouth, Daily, # 30 capsule, Refills 3, Tot. 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 Active Routine medical exam [...] Safety Implantable Status Assigning Authority Unknown Unknown [id number] Unknown 10/27/19 Unknown Unknown Active Unknown Patient Care team information Care Team Personnel Name: Bibi Foster MD Position: [facility] Physician - Primary Care Member Role: PCP Address: Address: [address] [place] [address] Care Team Related Persons Name: DANIELLE AVILES Address: [address] [place] [address] Name: ABHIJEET TAI Address: [address] [place] [address] Name: JUANITO THOMAS Address: home [address] [place] [address] Name: SATISH FRANCES Address: home [address] [place] [address]
--- OUTSIDE RECORDS SUMMARY | 2023-11-11 09:44 | XMS_ITS | Continuity of Care Document ---
Author Organization [facility] Address [address] [place] [address]- Care Team Providers Care Waste Water Or Water Plant Operator Name Role Phone Bibi Foster MD Primary Care Physician En[place] [facility] [place] Date(s): 04/23/22 - 04/30/22 [facility] [address] [place], [place] [address] Encounter Diagnosis Anxiety(Discharge Diagnosis) - 04/23/22 Lumbar post-laminectomy syndrome(Discharge Diagnosis) - 04/23/22 Routine medical exam(Discharge Diagnosis) - 04/23/22 Attending Physician: Bibi Foster MD Allergies, Adverse Reactions, Alerts Substance Reaction Severity Status morphine ITCHING DOES NOT WORK Active Immunizations Given and Recorded Vaccine Date Status Refusal Reason influenza virus vaccine, inactivated 04/23/22 Give n influenza virus vaccine, inactivated 1 07/10/19 Gi ariana influenza virus vaccine, inactivated 03/31/15 Give n tetanus-diphtheria toxoids (Td) 2 09/28/14 Given 1Result Comment: [facility]# [id number] pt. tolerated inj. without complications....CO 2Result Comment: [...] due, # 60 tablet, 1 Refills, Maintenance, 04/18/22 9:41:00 EDT, [facility] #[id number], 153, cm, 02/09/22 8:38:00 EDT, Height Start Date: 04/18/22 Status: Ordered Crestor 40 mg oral tablet 1 tablet = 40 mg, By Mouth, Daily, # 90 tablet, 2 Refills, Maintenance, 04/24/22 12:13:00 EDT, Tablet, [facility] #61852, Partial fill upon patient request if the prescription is for a schedule II opioid drug., 153, cm, 04/23/22 8:20:00 EDT,... 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 Routine medical exam Confirmed Active Failed back surgical syndrome Confirmed Active Sacroiliac dysfunction Confirmed Active Encounter for screening colonoscopy Confirmed Active Varicose vein of leg Confirmed Active Diagnosis Diagnosis Type Effective Dates Health Status Cl inical Service Informant Anxiety Discharge Diagnosis 04/23/22 Lumbar post-laminectomy syndrome Discharge Diagnosis 04/23/22 Routine medical exam Discharge Diagnosis 04/23/22 Vital Signs Most recent to oldest [Reference Range]: 1 2 Height 153 cm (04/23/22 8:20 AM) 153 cm (04/23/22 8:01 AM) Weight 54.0 kg (04/23/22 8:20 AM) 54.0 kg (04/23/22 8:01 AM) Oxygen Saturation [94-100 %] 97 % (04/23/22 8:01 AM) Pulse Rate [55-90 bpm] 79 bpm (04/23/22 8:01 AM) Body Mass Index [18.5-24.99 kg/m2] 23.07 kg/m2 (04/23/22 8:01 AM) Blood Pressure [90-138/55-84 mm Hg] 122/ 72mm Hg (04/23/22 8:01 AM) Mode of Delivery (Oxygen) Room air (04/23/22 8:01 AM) Blood pressure sites Arm, left (04/23/22 8:01 AM) Social History Social History Type Response Smoking Status Never smoker entered on: 07/30/13 Sex Implantable Device List Procedure Provider Procedure Date Device Type Site Repair Hernia Ventral Laparoscopic Jhoan Coppola MD 02/19/18 Unknown Abdomen Device Identifier Serial Number Lot or Batch Number Manufacturing Date Expiration Date Distinct Identification Code MRI Safety Implantable Status Assigning Authority Unknown Unknown [id number] Unknown 10/27/19 Unknown Unknown Active Unknown Patient Care team information Personnel Name: Bibi Foster MD Address: Address: [address] [place] [address]
--- OUTSIDE RECORDS SUMMARY | 2023-11-11 09:44 | XMS_ITS | Continuity of Care Document ---
Author Organization [facility] ter Address [address] [place] [address]- Care Team Providers Care Apparel Machinery Instructor Name Role Phone Bibi Foster MD Primary Care Physician Encounter [facility] Date(s): 01/04/23 - 02/09/[address] [address] Attending Physician: Winsome Manriquez NP Admitting Physician: Winsome Manriquez NP Referring Physician: Winsome Manriquez NP Allergies, Adverse Reactions, Alerts Substance Reaction Severity Status morphine ITCHING DOES NOT WORK Active Immunizations Given and Recorded Vaccine Date Status Refusal Reason influenza virus vaccine, inactivated 04/23/22 Give n influenza virus vaccine, inactivated 1 07/10/19 Gi ariana influenza virus vaccine, inactivated 03/31/15 Give n tetanus-diphtheria toxoids (Td) 2 09/28/14 Given 1Result Comment: [facility]# [id number] pt. tolerated inj. without complications....CO 2Result Comment: [...] tablet, 2 Refills, Maintenance, 12/07/22 12:34:00 EDT, [facility] #[id number], 153, cm, 11/09/22 18:01:00 EDT, Height Start Date: 12/07/22 Status: Ordered cyanocobalamin 1000 mcg/ml injectable solution See Instructions, INJECT 1 ML IN THE MUSCLE EVERY 30 DAYS, # 1 mL, 11 Refills, Maintenance, 01/08/22 16:04:00 EDT, [facility] #27839, 153, cm, 05/22/21 7:19:00 EST, Height Start Date: 01/08/22 Status: Ordered FLUoxetine 20 mg oral capsule 20 mg, 1, capsule, By Mouth, Daily, # 30 capsule, Refills 3, Tot. Refills 3, Maintenance, 09/19/22 15:11:00 EDT, Route to Pharmacy Electronically, [facility] #[id number], Partial fill upon patient request if the [...] Refills, Maintenance, 11/13/22 9:04:00 EDT, EC Capsule, [facility] #17554, PUT ON FILE, 153, cm, 11/09/22 18:01:00 [...] Psychological Factors Confirmed Active Palpitations Confirmed Active *[facility] [phone] MATH SPECIALIST SEAN SILVERMAN Confirmed Active Routine medical [...] Safety Implantable Status Assigning Authority Unknown Unknown [id number] Unknown 10/27/19 Unknown Unknown Active Unknown Patient Care team information Care Team Personnel Name: Bibi Foster MD Position: [facility] Physician - Primary Care Member Role: PCP Address: Address: [address] [place] [address]- Care Team Related Persons Name: DANIELLE AVILES Address: home [address] [place] [address] Name: ABHIJEET TAI Address: home [address] [place] [address] Name: JUANITO THOMAS Address: home [address] [place] [address] Name: SATISH FRANCES Address: home [address] [place] [address]
--- OUTSIDE RECORDS SUMMARY | 2023-11-11 09:44 | XMS_ITS | Continuity of Care Document ---
Author Organization [facility] Address [address] [place] [address]- Care Team Providers Care Strand Buncher Fine Wire Name Role Phone Bibi Foster MD Primary Care Physician Encounter [facility] [place] Date(s): 10/04/23 - 11/03/23 [facility] [address] [place] [address]- Attending Physician: Bebo Donis Admitting Physician: AdmBebo [...] Given 1Result Comment: [facility]# [id number] pt. tolerated inj. without complications....CO 2Result Comment: [...] tablet, 2 Refills, Maintenance, 09/02/23 11:36:00 EST, [facility] #[id number], 153, cm, 09/02/23 11:02:00 EST, Height Start Date: 09/02/23 Status: Ordered cyanocobalamin 1000 mcg/ml injectable solution See Instructions, INJECT 1 ML IN THE MUSCLE EVERY 30 DAYS, # 1 mL, 11 Refills, Maintenance, 05/27/23 15:22:00 EST, [facility] #70932, 153, cm, 04/05/23 12:59:00 EDT, Height Start Date: 05/27/23 Status: Ordered FLUoxetine 20 mg oral capsule 20 mg, 1, capsule, By Mouth, Daily, # 30 capsule, Refills 3, Tot. Refills 3, Maintenance, 09/19/22 15:11:00 EDT, Route to Pharmacy Electronically, [facility] #25432, Partial fill upon patient request if the [...] 1 Refills, Maintenance, 09/02/23 11:35:00 EST, ECCapsule, [facility] #88575, PUT ON FILE, 153, cm, 09/02/23 11:02:00 [...] Route to PharmacyElectronically, [facility] #[id number], [place]... 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 Routine medical [...] Safety Implantable Status Assigning Authority Unknown Unknown [id number] Unknown 10/27/19 Unknown Unknown Active Unknown Patient Care team information Care Team Personnel Name: Bibi Foster MD Position: [facility] Physician - Primary Care Member Role: PCP Address: Address: [address] [place] [address]- Care Team Related Persons Name: DANIELLE AVILES Address: home [address] [place] [address] Name: ABHIJEET TAI Address: home [address] [place] [address] Name: JUANITO THOMAS Address: home [address] [place] [address] Name: SATISH FRANCES Address: home [address] [place] [address]
--- OUTSIDE RECORDS SUMMARY | 2023-11-11 09:44 | XMS_ITS | Continuity of Care Document ---
Author Organization [facility] ter Address [address] [place] [address]- Care Team Providers Care Orientation And Mobility Instructor Name Role Phone Bibi Foster MD Primary Care Physician Encounter [place] Date(s): 12/05/21 - 01/11/[address] [address] Attending Physician: Bibi Foster MD Admitting Physician: Bibi Foster MD Referring Physician: Bibi Foster MD Allergies, Adverse Reactions, Alerts Substance Reaction Severity Status morphine ITCHING DOES NOT WORK Active Immunizations Given and Recorded Vaccine Date Status Refusal Reason influenza virus vaccine, inactivated 1 07/10/19 Gi ariana influenza virus vaccine, inactivated 03/31/15 Give n tetanus-diphtheria toxoids (Td) 2 09/28/14 Given 1Result Comment: [facility]# [id number] pt. tolerated inj. without complications....CO 2Result Comment: [...] 60 tablet, 1 Refills,Maintenance, 11/21/21 16:22:00 EDT, [facility] #50709, 153, cm, 05/22/21 7:19:00 EST, Height Start Date: 11/21/21 Status: Ordered cyanocobalamin 1000 mcg/ml injectable solution See Instructions, INJECT 1 ML IN THE MUSCLE EVERY 30 DAYS, # 1 mL, 11 Refills, Maintenance, 01/08/22 16:04:00 EDT, [facility] #53277, 153, cm, 05/22/21 7:19:00 EST, Height Start [...] 1 Refills, Maintenance, 01/08/22 16:03:00 EDT, ECCapsule, [facility] #50214, PUT ON FILE, 153, cm, 05/22/21 7:19:00 [...] Related to Psychological Factors(Confirmed) Active Palpitations(Confirmed) Active *[facility] [phone] 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 Routine medical exam(Confirmed) Active Failed back surgical syndrome(Confirmed) Active Sacroiliac dysfunction(Confirmed) Active Encounter for screening colonoscopy(Confirmed) Active Varicose vein of leg(Confirmed) Active Social History Social History Type Response Smoking Status Never smoker entered on: 07/30/13 Sex Medical Equipment Implanted Date:02/19/18Target Site:Abdomen Description Quantity MRI Company Model PATCH HERNIA VENTRALEX LG CI R - BARD ([id number]) [address] BARD Unknown MAIDA:No Information Assigning Authority: FDA
--- OUTSIDE RECORDS SUMMARY | 2023-11-11 09:44 | XMS_ITS | Continuity of Care Document ---
Author Organization [facility] Address [address] [place] [address]- Care Team Providers Care Commercial Leasing Agent Name Role Phone Bibi Foster MD Primary Care Physician [place] [facility] 07/25/23 - 08/24/23 [facility] [address] [place], [place] [address] Allergies, Adverse Reactions, Alerts Substance Reaction Severity Status morphine ITCHING DOES NOT WORK Active Immunizations Given and Recorded Vaccine Date Status Refusal Reason influenza virus vaccine, inactivated 04/23/22 Give n influenza virus vaccine, inactivated 1 07/10/19 Gi ariana influenza virus vaccine, inactivated 03/31/15 Give n tetanus-diphtheria toxoids (Td) 2 09/28/14 Given 1Result Comment: [facility]# [id number] pt. tolerated inj. without complications....CO 2Result Comment: [...] tablet, 2 Refills, Maintenance, 05/21/23 15:52:00 EST, [facility] #[id number], 153, cm, 04/05/23 12:59:00 EDT, Height Start Date: 05/21/23 Status: Ordered clonazePAM 0.5 mg oral tablet See Instructions, TAKE 1 TABLET BY MOUTH TWICE DAILY NEEDED FOR ANXIETY fill when due [facility], # 14 tablet, 0 Refills, Maintenance, 03/22/23 16:00:00 EDT, [facility] #72552, 153, cm, 03/14/23 11:14:00 EDT, Height Start Date: 03/22/23 Status: Ordered clonazePAM 1 mg oral tablet 0.5 tablet = 0.5 mg, By Mouth, 2 times a day, To replace 0.5 mg tablet due to back order., # 30 tablet, 0 Refills, Maintenance, 04/16/23 16:20:00 EDT, [facility] #66848, Partial fill upon patient request if the prescription is for a schedule... Start Date: 04/16/23 Stop Date: 04/23/23 Status: Ordered Crestor 40 mg oral tablet 1 tablet = 40 mg, By Mouth, Daily, # 90 tablet, 2 Refills, Maintenance, 04/05/23 16:20:00 EDT, Tablet, [facility] #16607, Partial fill upon patient request if the prescription is for a schedule II opioid drug., 153, cm, 04/05/23 12:59:00 EDT... Start Date: 04/05/23 Status: Ordered cyanocobalamin 1000 mcg/ml injectable solution See Instructions, INJECT 1 ML IN THE MUSCLE EVERY 30 DAYS, # 1 mL, 11 Refills, Maintenance, 05/27/23 15:22:00 EST, [facility] #16489, 153, cm, 04/05/23 12:59:00 EDT, Height Start Date: 05/27/23 Status: Ordered FLUoxetine 20 mg oral capsule 20 mg, 1, capsule, By Mouth, Daily, # 30 capsule, Refills 3, Tot. Refills 3, Maintenance, 09/19/22 15:11:00 EDT, Route to Pharmacy Electronically, [facility] #95608, Partial fill upon patient request if the [...] Refills, Maintenance, 11/13/22 9:04:00 EDT, EC Capsule, [facility] #[id number], PUT ON FILE, 153, cm, 11/09/22 18:01:00 [...] Maintenance, 03/15/23 15:58:00 EDT, Route to PharmacyElectronically, [facility] #[id number], [place]... Start Date: 03/15/23 Stop Date: 03/22/23 [...] Psychological Factors Confirmed Active Palpitations Confirmed Active *[facility] [phone] MEDICAL NUMERICAL CONTROL OPERATOR SEAN SILVERMAN Confirmed Active Routine medical [...] Safety Implantable Status Assigning Authority Unknown Unknown [id number] Unknown 10/27/19 Unknown Unknown Active Unknown Patient Care team information Care Team Personnel Name: Bibi Foster MD [facility] Physician - Primary Care Member Role: PCP Address: Address: [address] [place] [address] Care Team Related Persons Name: DANIELLE AVILES Address: home [address] [place] [address] Name: ABHIJEET TAI Address: home [address] [place] [address] Name: JUANITO THOMAS Address: [address] [place] [address] Name: SATISH FRANCES Address: home [address] [place] [address]
--- OUTSIDE RECORDS SUMMARY | 2023-11-11 09:44 | XMS_ITS | Continuity of Care Document ---
Author Organization [facility] Address [address] [place] [address]- Care Team Providers Care Occasional Babysitter Name Role Phone Cristian JOHNSTON, Bibi Singh Primary Care Physician [phone] Encounter [facility] [place] Date(s): 06/22/22 - 09/23/22 [facility] [address] [place] [address]- Attending Physician: Hilton Ovalle MD Admitting Physician: Hilton Ovalle MD Allergies, Adverse Reactions, Alerts Substance Reaction Severity Status morphine ITCHING DOES NOT WORK Active Immunizations Given and Recorded Vaccine Date Status Refusal Reason influenza virus vaccine, inactivated 04/23/22 Give n influenza virus vaccine, inactivated 1 07/10/19 Gi ariana influenza virus vaccine, inactivated 03/31/15 Give n tetanus-diphtheria toxoids (Td) 2 09/28/14 Given 1Result Comment: [facility]# [id number] pt. tolerated inj. without complications....CO 2Result Comment: [...] tablet, 2 Refills, Maintenance, 09/04/22 16:14:00 EST, [facility] #[id number], 153, cm, 06/22/22 7:55:00 EST, Height Start Date: 09/04/22 Status: Ordered Crestor 40 mg oral tablet 1 tablet = 40 mg, By Mouth, Daily, # 90 tablet, 2 Refills, Maintenance, 04/24/22 12:13:00 EDT, Tablet, [facility] #88101, Partial fill upon patient request if the prescription is for a schedule II opioid drug., 153, cm, 04/23/22 8:20:00 EDT,... Start Date: 04/24/22 Status: Ordered cyanocobalamin 1000 mcg/ml injectable solution See Instructions, INJECT 1 ML IN THE MUSCLE EVERY 30 DAYS, # 1 mL, 11 Refills, Maintenance, 01/08/22 16:04:00 EDT, [facility] #71088, 153, cm, 05/22/21 7:19:00 EST, Height Start Date: 01/08/22 Status: Ordered FLUoxetine 20 mg oral capsule 20 mg, 1, capsule, By Mouth, Daily, # 30 capsule, Refills 3, Tot. Refills 3, Maintenance, 09/19/22 15:11:00 EDT, Route to Pharmacy Electronically, [facility] #20910, Partial fill upon patient request if the [...] 1 Refills, Maintenance, 01/08/22 16:03:00 EDT, ECCapsule, [facility] #48427, PUT ON FILE, 153, cm, 05/22/21 7:19:00 [...] Factors Confirmed Active Palpitations Confirmed Active *[facility] [phone] FAMILY AND CONSUMER SCIENCE PROFESSOR SEAN SILVERMAN Confirmed Active Routine medical exam [...] Safety Implantable Status Assigning Authority Unknown Unknown [id number] Unknown 10/27/19 Unknown Unknown Active Unknown Patient Care team information Care Team Personnel Name: Bibi Foster MD Position: [facility] Primary Care Physician Member Role: PCP Address: Address: [address] [place] [address] Care Team Related Persons Name: DANIELLE AVILES Address: home [address] [place] [address] Name: ABHIJEET TAI Address: home [address] [place] [address] Name: JUANITO THOMAS Address: [address] [place] [address] Name: SATISH FRANCES Address: home [address] [place] [address]
[2023-11-11 09:45] LABS: MANUAL DIFF FLAG NO
--- OUTSIDE RECORDS SUMMARY | 2023-11-11 09:45 | XMS_ITS | Continuity of Care Document ---
Author Organization [facility] ter Address [address] [place] [address]- Care Team Providers Care Cloth Tester Quality Name Role Phone Bibi Foster MD Primary Care Physician Encounter [facility] [place] Date(s): 07/10/19 - 07/17/[address] [address]- [facility] Attending Physician: Bibi Foster MD Allergies, Adverse Reactions, Alerts Substance Reaction Severity Status morphine ITCHING DOES NOT WORK Active Immunizations Given and Recorded Vaccine Date Status Refusal Reason influenza virus vaccine, inactivated 1 07/10/19 Gi ariana influenza virus vaccine, inactivated 03/31/15 Give n tetanus-diphtheria toxoids (Td) 2 09/28/14 Given 1Result Comment: [facility]# [id number] pt. tolerated inj. without complications....CO 2Result Comment: [...] 01/30/19 16:03:12 EDT, Route to Pharmacy Electronically, [id number], [facility] #[id number] Start Date: 01/30/19 Status: Ordered Imodium A-D [...] 2 Refills, Maintenance, 07/10/19 11:24:00 EST, ECCapsule, [facility] #47024, PUT ON FILE, 153, cm, 07/10/19 11:20:00 [...] 07/24/19 11:08:00 EST, 07/10/19 11:08:00 EST, Cream, [facility] #33303, 1 application Topicall... 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
--- OUTSIDE RECORDS SUMMARY | 2023-11-11 09:45 | XMS_ITS | Continuity of Care Document ---
Author Organization [facility] Address [address] [place] [address]- Care Team Providers Care Chronic Specialist Name Role Phone Bibi Foster MD Primary Care Physician Encounter [facility] Date(s): 04/17/22 - 05/17/22 [facility] [address] [place], [place] [address] Allergies, Adverse Reactions, Alerts Substance Reaction Severity Status morphine ITCHING DOES NOT WORK Active Immunizations Given and Recorded Vaccine Date Status Refusal Reason influenza virus vaccine, inactivated 04/23/22 Give n influenza virus vaccine, inactivated 1 07/10/19 Gi ariana influenza virus vaccine, inactivated 03/31/15 Give n tetanus-diphtheria toxoids (Td) 2 09/28/14 Given 1[facility]: [facility]# [id number] pt. tolerated inj. without complications....CO 2Result Comment: [...] tablet, 1 Refills, Maintenance, 04/18/22 9:41:00 EDT, [facility] #[id number], 153, cm, 02/09/22 8:38:00 EDT, Height Start Date: 04/18/22 Status: Ordered Crestor 40 mg oral tablet 1 tablet = 40 mg, By Mouth, Daily, # 90 tablet, 2 Refills, Maintenance, 04/24/22 12:13:00 EDT, Tablet, [facility] #91563, Partial fill upon patient request if the prescription is for a schedule II opioid drug., 153, cm, 04/23/22 8:20:00 EDT,... Start Date: 04/24/22 Status: Ordered cyanocobalamin 1000 mcg/ml injectable solution See Instructions, INJECT 1 ML IN THE MUSCLE EVERY 30 DAYS, # 1 mL, 11 Refills, Maintenance, 01/08/22 16:04:00 EDT, [facility] #48580, 153, cm, 05/22/21 7:19:00 EST, Height Start [...] 1 Refills, Maintenance, 01/08/22 16:03:00 EDT, ECCapsule, [facility] #58034, PUT ON FILE, 153, cm, 05/22/21 7:19:00 [...] Factors Confirmed Active Palpitations Confirmed Active *[facility] [phone] LIFE EDUCATOR SEAN SILVERMAN Confirmed Active Routine medical exam [...] Safety Implantable Status Assigning Authority Unknown Unknown [id number] Unknown 10/27/19 Unknown Unknown Active Unknown Patient Care team information Care Team Personnel Name: Bibi Foster MD Position: [facility] Primary Care Physician Member Role: PCP Address: Address: [address] [place] [address] Care Team Related Persons Name: DANIELLE AVILES Address: home [address] [place] [address] Name: ABHIJEET TAI Address: home [address] [place] [address] Name: JUANITO THOMAS Address: [address] [place] [address] Name: SATISH FRANCES Address: home [address] [place] [address]
--- OUTSIDE RECORDS SUMMARY | 2023-11-11 09:45 | XMS_ITS | Continuity of Care Document ---
Author Organization [facility] Address [address] [place] [address]- Care Team Providers Care Drafter Assistant Name Role Phone Bibi Foster MD Primary Care Physician Encounter [facility] [place] Date(s): 09/11/19 - 10/18/19 [facility] [address] [place] [address] [facility] Attending Physician: Sal Li MD Admitting Physician: Sal Li MD Allergies, Adverse Reactions, Alerts Substance Reaction Severity Status morphine ITCHING DOES NOT WORK Active Immunizations Given and Recorded Vaccine Date Status Refusal Reason influenza virus vaccine, inactivated 1 07/10/19 Gi ariana influenza virus vaccine, inactivated 03/31/15 Give n tetanus-diphtheria toxoids (Td) 2 09/28/14 Given 1Result Comment: [facility]# [id number] pt. tolerated inj. without complications....CO 2Result Comment: [09/28/2014] given without incident.....vs Medications Acidophilus Probiotic Blend oral capsule 1 capsule, By Mouth, Daily, # 30 capsule, 5 Refills, Maintenance, 12/02/18 14:58:16 EDT, 1 capsule By Mouth Daily Start Date: 12/02/18 Status: Ordered clonazePAM 0.5 mg oral tablet 1 tablet = 0.5 mg, By Mouth, 2 times a day, PRN Anxiety, # 60 tablet, 1 Refills, Maintenance, 10/05/19 16:06:00 EDT, Tablet, [facility] #[id number], 153, cm, 07/10/19 11:20:00 EST, Height, 56.8,kg, 07/10/19 10:40:00 EST, Dry Weight Start Date: 10/05/19 Stop Date: 12/04/19 Status: Ordered Compression Stockings See Instructions, # 2 pair, Refills 3, Tot. Refills 3, Maintenance, surgical, knee length 20-30 mm Hg dx:varicose veins, 11/21/17 9:51:51 EDT, Compound Start Date: 11/21/17 Status: Ordered cyanocobalamin 1000 mcg/ml injectable solution See Instructions, INJECT 1 ML IN THE MUSCLE EVERY 30 DAYS, # 1 mL, 3 Refills, Maintenance, [facility] #[id number], 153, cm, 07/10/19 11:20:00 EST, Height, 56.8, kg, 07/10/19 10:40:00 EST, Dry Weight Start Date: 09/07/19 Status: Ordered FLUoxetine 20 mg oral capsule 20 mg, 1, capsule, By Mouth, Daily, # 90 capsule, Refills 1, Tot. Refills 1, Maintenance, 01/30/19 16:03:12 EDT, Route to Pharmacy Electronically, [id number], [facility] #[id number] Start Date: 01/30/19 Status: Ordered Imodium A-D [...] 2 Refills, Maintenance, 07/10/19 11:24:00 EST, ECCapsule, [facility] #[id number], PUT ON FILE, 153, cm, 07/10/19 11:20:00 [...] Factors(Confirmed) Active Palpitations(Confirmed) Active *[facility] [phone] 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 Failed back surgical syndrome(Confirmed) Active Encounter for screening colonoscopy(Confirmed) Active Varicose vein of leg(Confirmed) Active Social History Social History Type Response Smoking Status Never smoker entered on: 07/30/13 Sex Medical Equipment Implanted Date:02/19/18Target Site:Abdomen Description Quantity MRI Company Model PATCH HERNIA VENTRALEX LG CI R - BARD ([id number]) [address] BARD Unknown MAIDA:No Information Assigning Authority: FDA
--- OUTSIDE RECORDS SUMMARY | 2023-11-11 09:45 | XMS_ITS | Continuity of Care Document ---
Author Organization [facility] Address [address] [place] [address]- Care Team Providers Care Executive Director Of Nursing Name Role Phone Bibi Foster MD Primary Care Physician [phone] Encounter [facility] Date(s): 04/25/23 - 05/25/23 [facility] [address] [place], [place] [address] Allergies, Adverse Reactions, Alerts Substance Reaction Severity Status morphine ITCHING DOES NOT WORK Active Immunizations Given and Recorded Vaccine Date Status Refusal Reason influenza virus vaccine, inactivated 04/23/22 Give n influenza virus vaccine, inactivated 1 07/10/19 Gi ariana influenza virus vaccine, inactivated 03/31/15 Give n tetanus-diphtheria toxoids (Td) 2 09/28/14 Given 1Result Comment: [facility]# [id number] pt. tolerated inj. without complications....CO 2Result Comment: [...] tablet, 2 Refills, Maintenance, 05/21/23 15:52:00 EST, [facility] #[id number], 153, cm, 04/05/23 12:59:00 EDT, Height Start Date: 05/21/23 Status: Ordered clonazePAM 0.5 mg oral tablet See Instructions, TAKE 1 TABLET BY MOUTH TWICE DAILY NEEDED FOR ANXIETY fill when due GET LABS, # 14 tablet, 0 Refills, Maintenance, 03/22/23 16:00:00 EDT, [facility] #[id number], 153, cm, 03/14/23 11:14:00 EDT, Height Start Date: 03/22/23 Status: Ordered clonazePAM 1 mg oral tablet 0.5 tablet = 0.5 mg, By Mouth, 2 times a day, To replace 0.5 mg tablet due to back order., # 30 tablet, 0 Refills, Maintenance, 04/16/23 16:20:00 EDT, [facility] #[id number], Partial fill upon patient request if the prescription is for a schedule... Start Date: 04/16/23 Stop Date: 04/23/23 Status: Ordered Crestor 40 mg oral tablet 1 tablet = 40 mg, By Mouth, Daily, # 90 tablet, 2 Refills, Maintenance, 04/05/23 16:20:00 EDT, Tablet, [facility] #[id number], Partial fill upon patient request if the prescription is for a schedule II opioid drug., 153, cm, 04/05/23 12:59:00 EDT... Start Date: 04/05/23 Status: Ordered cyanocobalamin 1000 mcg/ml injectable solution See Instructions, INJECT 1 ML IN THE MUSCLE EVERY 30 DAYS, # 1 mL, 11 Refills, Maintenance, 01/08/22 16:04:00 EDT, [facility] #[id number], 153, cm, 05/22/21 7:19:00 EST, Height Start Date: 01/08/22 Status: Ordered FLUoxetine 20 mg oral capsule 20 mg, 1, capsule, By Mouth, Daily, # 30 capsule, Refills 3, Tot. Refills 3, Maintenance, 09/19/22 15:11:00 EDT, Route to Pharmacy Electronically, [facility] #[id number], Partial fill upon patient request if the [...] Refills, Maintenance, 11/13/22 9:04:00 EDT, EC Capsule, [facility] #[id number], PUT ON FILE, 153, cm, 11/09/22 18:01:00 [...] Maintenance, 03/15/23 15:58:00 EDT, Route to PharmacyElectronically, [facility] #[id number], [place]... 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 Active Routine medical exam [...] Safety Implantable Status Assigning Authority Unknown Unknown [id number] Unknown 10/27/19 Unknown Unknown Active Unknown Patient Care team information Care Team Personnel Name: Bibi Foster MD Position: [facility] Physician - Primary Care Member Role: PCP Address: Address: [address] [place] [address] Care Team Related Persons Name: DANIELLE AVILES Address: home [address] [place] [address] Name: ABHIJEET TAI Address: home [address] [place] [address] Name: JUANITO THOMAS Address: home [address] [place] [address] Name: SATISH FRANCES Address: home [address] [place] [address]
--- OUTSIDE RECORDS SUMMARY | 2023-11-11 09:45 | XMS_ITS | Continuity of Care Document ---
Author Organization [facility] Address [address] [place] [address]- Care Team Providers Care Customs And Immigration Officer Name Role Phone Bibi Foster MD Primary Care Physician [place] [facility] 05/22/21 - 06/21/21 [facility] [address] [place] [address]- Attending Physician: Bebo Donis Admitting Physician: Bebo Donis Referring Physician: AdmtrBebo Allergies, Adverse Reactions, Alerts Substance Reaction Severity Status morphine ITCHING DOES NOT WORK Active Immunizations Given and Recorded Vaccine Date Status Refusal Reason influenza virus vaccine, inactivated 1 07/10/19 Gi ariana influenza virus vaccine, inactivated 03/31/15 Give n tetanus-diphtheria toxoids (Td) 2 09/28/14 Given 1Result Comment: [facility]# [id number] pt. tolerated inj. 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
--- OUTSIDE RECORDS SUMMARY | 2023-11-11 09:45 | XMS_ITS | Continuity of Care Document ---
Author Organization [facility] Address [address] [place] [address]- Care Team Providers Care Trust Mail Clerk Name Role Phone Bibi Foster MD Primary Care Physician [phone] Encounter [facility] Date(s): 05/21/23 - 06/20/23 [facility] [address] [place], [place] [address] Allergies, Adverse Reactions, Alerts Substance Reaction Severity Status morphine ITCHING DOES NOT WORK Active Immunizations Given and Recorded Vaccine Date Status Refusal Reason influenza virus vaccine, inactivated 04/23/22 Give n influenza virus vaccine, inactivated 1 07/10/19 Gi ariana influenza virus vaccine, inactivated 03/31/15 Give n tetanus-diphtheria toxoids (Td) 2 09/28/14 Given 1Result Comment: [facility]# [id number] pt. tolerated inj. without complications....CO 2Result Comment: [...] tablet, 2 Refills, Maintenance, 05/21/23 15:52:00 EST, [email or web address] #[id number], 153, cm, 04/05/23 12:59:00 EDT, Height Start Date: 05/21/23 Status: Ordered clonazePAM 0.5 mg oral tablet See Instructions, TAKE 1 TABLET BY MOUTH TWICE DAILY NEEDED FOR ANXIETY fill when due GET LABS, # 14 tablet, 0 Refills, Maintenance, 03/22/23 16:00:00 EDT, [email or web address] #[id number], 153, cm, 03/14/23 11:14:00 EDT, Height Start Date: 03/22/23 Status: Ordered clonazePAM 1 mg oral tablet 0.5 tablet = 0.5 mg, By Mouth, 2 times a day, To replace 0.5 mg tablet due to back order., # 30 tablet, 0 Refills, Maintenance, 04/16/23 16:20:00 EDT, [email or web address] #[id number], Partial fill upon patient request if the prescription is for a schedule... Start Date: 04/16/23 Stop Date: 04/23/23 Status: Ordered Crestor 40 mg oral tablet 1 tablet = 40 mg, By Mouth, Daily, # 90 tablet, 2 Refills, Maintenance, 04/05/23 16:20:00 EDT, Tablet, [email or web address] #[id number], Partial fill upon patient request if the prescription is for a schedule II opioid drug., 153, cm, 04/05/23 12:59:00 EDT... Start Date: 04/05/23 Status: Ordered cyanocobalamin 1000 mcg/ml injectable solution See Instructions, INJECT 1 ML IN THE MUSCLE EVERY 30 DAYS, # 1 mL, 11 Refills, Maintenance, 05/27/23 15:22:00 EST, [email or web address] #[id number], 153, cm, 04/05/23 12:59:00 EDT, Height Start Date: 05/27/23 Status: Ordered FLUoxetine 20 mg oral capsule 20 mg, 1, capsule, By Mouth, Daily, # 30 capsule, Refills 3, Tot. Refills 3, Maintenance, 09/19/22 15:11:00 EDT, Route to Pharmacy Electronically, [email or web address] #[id number], Partial fill upon patient request if the [...] Refills, Maintenance, 11/13/22 9:04:00 EDT, EC Capsule, [email or web address] #[id number], PUT ON FILE, 153, cm, 11/09/22 18:01:00 [...] Maintenance, 03/15/23 15:58:00 EDT, Route to PharmacyElectronically, [email or web address][id number], [place]... 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 Routine medical exam [...] Safety Implantable Status Assigning Authority Unknown Unknown [id number] Unknown 10/27/19 Unknown Unknown Active Unknown Patient Care team information Care Team Personnel Name: Bibi Foster MD Position: [facility] Physician - Primary Care Member Role: PCP Address: Address: [address] [place] [address] Care Team Related Persons Name: DANIELLE AVILES Address: home [address] [place] [address] Name: ABHIJEET TAI Address: home [address] [place] [address] Name: JUANITO THOMAS Address: home [address] [place] [id number] Name: SATISH FRANCES Address: home [address] [place] [address]
--- OUTSIDE RECORDS SUMMARY | 2023-11-11 09:45 | XMS_ITS | Continuity of Care Document ---
Author Organization [facility] Address [address] [place] [address]- Care Team Providers Care Coin Machine Operator Name Role Phone Bibi Foster MD Primary Care Physician [place] [facility] [place](s): 06/15/20 - 07/15/20 [facility] [address] [place], [place] [address] Allergies, Adverse Reactions, Alerts Substance Reaction Severity Status morphine ITCHING DOES NOT WORK Active Immunizations Given and Recorded Vaccine Date Status Refusal Reason influenza virus vaccine, inactivated 1 07/10/19 Gi ariana influenza virus vaccine, inactivated 03/31/15 Give n tetanus-diphtheria toxoids (Td) 2 09/28/14 Given 1Result Comment: [facility]# [id number] pt. tolerated inj. without complications....CO 2Result Comment: [09/28/2014] given without incident.....vs Medications clonazePAM 0.5 mg oral tablet See Instructions, TAKE 1 TABLET BY MOUTH TWICE DAILY NEEDED FOR ANXIETY, # 60 tablet, 2 Refills,Maintenance, 06/15/20 9:55:00 EST, [facility] #[id number], 153, cm, 03/09/20 11:07:00 EDT, Height, 56.8, kg, 07/10/19 10:40:00 EST, Dry Weight Start Date: 06/15/20 Status: Ordered cyanocobalamin 1000 mcg/ml injectable solution See Instructions, INJECT 1 ML IN THE MUSCLE EVERY 30 DAYS, # 1 mL, 11 Refills, Maintenance, [facility] #[id number], 153, cm, 06/22/20 8:13:00 EST, Height, 56.8, kg, 07/10/19 10:40:00 EST, Dry Weight Start Date: 07/15/20 Status: Ordered cyanocobalamin 1000 mcg/ml injectable solution See Instructions, INJECT 1 ML IN THE MUSCLE EVERY 30 DAYS, # 1 mL, 3 Refills, Maintenance, [facility] #[id number], 153, cm, 07/10/19 11:20:00 EST, Height, 56.8, [...] Daily, # 90 capsule, 0 Refills, Maintenance, 04/22/20 10:10:00 EDT, ECCapsule, [facility] #[id number], PUT ON FILE, 153, cm, 03/09/20 11:07:00 EDT, Height, 56.8, kg, 07/10/19 10:40:00 EST, Dry Weight Start Date: 04/22/20 Status: Ordered Soma 350 mg oral tablet [...] Palpitations(Confirmed) Active *[facility] [phone] 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
[2023-11-11 09:51] LABS: Basophils Percent Auto 0.5 % (0-2); Eosinophils Absolute Auto 0.2 X10*3/uL (0.0-0.4); Eosinophils Percent Auto 2.7 % (0-4); Hematocrit 33.8 % (37.0-47.0); Hemoglobin 11.6 g/dl (12.0-16.0); Imm Gran Abs Auto 0.03 X10*3/uL (0.00-0.03); Imm Gran Pct Auto 0.5 % (0.0-0.4); Lymphocytes Absolute Auto 0.8 X10*3/uL (1.2-4.9); Lymphocytes Percent Auto 12.1 % (20-40); Mean Corpuscular HGB Conc 34.3 g/dl (31.0-35.0); Mean Corpuscular Hemoglobin 31.6 pg (27.0-33.0); Mean Corpuscular Volume 92.1 fL (80.0-98.0); Mean Platelet Volume 9.9 fL (9.4-12.3); Monocytes Absolute Auto 0.4 X10*3/uL (0.1-1.2); Monocytes Percent Auto 6.4 % (2-11); Neutrophils Percent Auto 77.8 % (45-73); Platelet Count 221 X10*3/uL (160-400); Red Blood Count 3.67 X10*6/uL (4.20-5.50); Red Cell Distribution Width 15.5 % (11.0-16.0); White Blood Count 6.4 X10*3/uL (4.8-10.8)
[2023-11-11 09:55] LABS: INTERNATIONAL NORM RATIO 0.9 (0.9-1.1); Prothrombin Time 11.5 SEC (11.1-13.3)
[2023-11-11 10:01] LABS: Anion Gap 18 (12-20); Blood Urea Nitrogen 14 mg/dL (9-16); Calcium 9.6 mg/dL (8.4-10.2); Carbon Dioxide 21 mmol/L (22-29); Chloride 105 mmol/L (96-108); Creatinine Clr Calc Pharmacy 64.4; Estimated Glomerular Filt Rate > 60; Glucose Random 115 mg/dL (60-115); Potassium 3.8 mmol/L (3.3-5.1); Sodium 140 mmol/L (135-145)
[2023-11-11 10:14] LABS: Troponin-I High Sensitivity < 2.7 ng/L (<3.5-17.0)
[2023-11-11 10:33] LABS: Influenza A PCR NEGATIVE (Negative); Influenza B PCR NEGATIVE (Negative); Resp Syncy Virus RNA Qual PCR NEGATIVE (Negative); SARS COV2 PCR INHOUSE NEGATIVE (Negative)
[2023-11-11 10:57] LABS: B Type Natriuretic Peptide < 10 pg/mL (<100)
[2023-11-11 10:58] LABS: Appearance Urine Clear; Color Urine Yellow; Glucose Urine UA Negative (Negative); Leukocyte Esterase Urine Negative (Negative); Nitrite Urine Negative (Negative); PH 5.5 (5.0-9.0); Specific Gravity - Urine >= 1.030 (1.005-1.025); Urine Blood Negative (Negative); Urine Ketones Negative (Negative); Urine Protein Trace mg/dL (Neg-Trace)
[2023-11-11 10:59] LABS: UPreg QC Valid YES; Urine Pregnancy NEGATIVE (NEGATIVE)
[2023-11-11 11:58] VITALS: BP 153/97; PULSE 88; RESP 19; TEMP 38.2; O2SAT 97
--- NOTE | 2023-11-11 12:00 | ED_ITS ---
HPI - General Adult General Chief complaint: General Medical Stated complaint: Fever/Chills/SOB 6 days Time Seen by Provider: 11/11/23 11:59 Source: patient Mode of arrival: ambulatory Limitations: no limitations History of Present Illness HPI narrative: 58-year-old female with a history of hypertension who presents to the ER for evaluation of 6 days of feeling unwell. She has had intermittent fever, chills, headaches, shortness of breath and back pain that started the day after she took care for young grandchildren. They were not sick at the time. She denies any chest pain or difficulty breathing. No productive cough. She reports diffuse back aches, denies any abdominal pain, urinary symptoms, nausea, vomiting, diarrhea. MD complaint: Fever, chills, shortness of breath back pain Onset (ago): day(s) (6) Location: chest and back Severity: moderate Quality: aching Pain Consistency: constant Relieving factors: rest Exacerbating factors: movement Associated symptoms: cough, loss of appetite and shortness of breath Treatments prior to arrival: none Related Data Home Medications ?Medication ?Instructions ?Recorded ?Confirmed cyanocobalamin (vitamin B-12) 1,000 mcg IM QMONTH 08/18/23 08/18/23 1,000 mcg/mL injection solution carisoprodol 350 mg tablet 350 mg PO BID PRN low back pain 09/04/23 clonazepam 0.5 mg tablet 0.5 mg PO BID PRN anxiety 09/04/23 tramadol 50 mg tablet 50 mg PO TID-QID 09/04/23 Previous Rx's ?Medication ?Instructions ?Recorded carvedilol 12.5 mg tablet 12.5 mg PO BID #30 tabs 11/06/23 amoxicillin 875 mg-potassium 1 tab PO BID #14 tabs 11/11/23 clavulanate 125 mg tablet azithromycin 250 mg tablet See Rx Instructions PO .COMPLEX #6 11/11/23 (Zithromax Z-Jorge) tabs prednisone 20 mg tablet 40 mg (2 x 20 mg) PO DAILY #10 tabs 11/11/23 Allergies Allergy/AdvReac Type Severity Reaction Status Date / Time ibuprofen [From Motrin] Allergy Unknown Verified 11/11/23 09:25 morphine AdvReac Itching Verified 11/11/23 09:25 Review of Systems 2 Review of Systems: Yes all other systems are reviewed and are negative [facility] Past Medical History Medical History (Updated 11/11/23 @ 12:02 by CHUN Blevins) Cystocele with rectocele Chronic low back pain Hypertriglyceridemia Hyperlipidemia HTN (hypertension) Surgical History History of hernia repair History of back surgery Family History Family History Father A-fib Social History Social History Household Members: Spouse Housing: Apartment Do you presently have visiting nurse or other home services: No Alcohol intake: never Patient Tobacco Use Status: Never used Tobacco Advance Directives: No Advance Directives Information Provided: Yes service: No Physical Exam ED Vital Signs: Vital Signs - 24 hr 11/11/23 09:22 11/11/23 11:58 Temperature 98 F 100.7 F H Pulse Rate 95 88 Respiratory Rate 19 19 Blood Pressure 144/95 H 153/97 H Pulse Oximetry 98 97 Oxygen Delivery Method Room Air Room Air BMI result Body Mass Index 23.4 Appearance: Alert. Oriented X3. No acute distress. Head: normocephalic, atraumatic. Eyes: Pupils equal, round and reactive to light. ENT: Pharynx normal. No tonsillar swelling or exudate. Neck: Normal inspection. Neck supple. CVS: Normal heart rate and rhythm. Pulses normal. Respiratory: No respiratory distress. Breath sounds normal. Abdomen: Soft and nontender. +BS x4 Skin: Skin warm and dry. Normal skin color. Normal skin turgor. No rashes. Extremities: No lower extremity edema. No joint swelling. Neuro/psych: Oriented X 3. No motor deficit. No sensory deficit. CN II-XII intact. Normal speech and cognition. Medical Decision Making Differential Diagnosis Differential Diagnoses: The differential diagnosis associated with the presentation includes Admission/Observation Consideration of admission/observation: Escalation of care including admission/observation considered Lab Data MDM Lab Attestation statement: I reviewed the patient's lab results. 11/11/23 09:40 11/11/23 09:40 Labs: Lab Results 11/11/23 11/11/23 Range/Units 09:40 10:48 WBC 6.4 (4.8-10.8) X10*3/uL RBC 3.67 L (4.20-5.50) X10*6/uL Hgb 11.6 L (12.0-16.0) g/dl Hct 33.8 L (37.0-47.0) % MCV 92.1 (80.0-98.0) fL MCH 31.6 (27.0-33.0) pg MCHC 34.3 (31.0-35.0) g/dl RDW 15.5 (11.0-16.0) % Plt Count 221 D (160-400) X10*3/uL MPV 9.9 (9.4-12.3) fL Immature Gran % (Auto) 0.5 H (0.0-0.4) % Neut % (Auto) 77.8 H (45-73) % Lymph % (Auto) 12.1 L (20-40) % Tift % (Auto) 6.4 (2-11) % Eos % (Auto) 2.7 (0-4) % Baso % (Auto) 0.5 (0-2) % Lymph # (Auto) 0.8 L (1.2-4.9) X10*3/uL Tift # (Auto) 0.4 (0.1-1.2) X10*3/uL Eos # (Auto) 0.2 (0.0-0.4) X10*3/uL Baso # (Auto) 0.0 (0.0-0.2) X10*3/uL Abs Immat Gran (auto) 0.03 (0.00-0.03) X10*3/uL Absolute Neuts (auto) 5.0 (2.0-8.3) x10*3/uL Absolute Nucleated RBC 0.000 (0.0-0.012) X10*3/uL Nucleated RBC % (auto) 0.0 (0.0-0.2) /100WBC PT 11.5 (11.1-13.3) SEC INR 0.9 (0.9-1.1) Sodium 140 (135-145) mmol/L Potassium 3.8 (3.3-5.1) mmol/L Chloride 105 (96-108) mmol/L Carbon Dioxide 21 L (22-29) mmol/L Anion Gap 18 (12-20) BUN 14 (9-16) mg/dL Creatinine 0.70 (0.5-1.4) mg/dL Estim Creat Clear Calc 64.4 Estimated GFR > 60 Random Glucose 115 (60-115) mg/dL Calcium 9.6 (8.4-10.2) mg/dL Troponin I High Sens < 2.7 (<3.5-17.0) ng/L B-Natriuretic Peptide < 10 (<100) pg/mL Urine Color Yellow Urine Appearance Clear Urine pH 5.5 (5.0-9.0) Ur Specific [place] >= 1.030 H (1.005-1.025) Urine Protein Trace (Neg-Trace) mg/dL Urine Glucose (UA) Negative (Negative) mg/dL Urine Ketones Negative (Negative) mg/dL Urine Blood Negative (Negative) Urine Nitrite Negative (Negative) Ur Leukocyte Esterase Negative (Negative) Urine Test NEGATIVE (NEGATIVE) Influenza Type A (PCR) NEGATIVE (Negative) Influenza Type B (PCR) NEGATIVE (Negative) RSV RNA Qual (PCR) NEGATIVE (Negative) SARS-CoV-2 RNA (RT-PCR) NEGATIVE (Negative) Independent Interpretation I performed an independent interpretation of an: EKG and Plain X-Ray Interpretation: EKG with normal sinus rhythm, HR 88 bpm, normal OH interval, no ST segment elevations or depressions Diffuse infiltrate in the right middle lobe, agree with radiology read Radiology Impression Discussion of test interpretation with radiology: I have reviewed the radiologist's reading. Radiologist Impression: EXAMINATION: XR CHEST CLINICAL INFORMATION: Shortness of breath. COMPARISON: 08/17/2023 TECHNIQUE: 2 views of the chest were obtained. FINDINGS: Airspace disease and consolidation involving the right middle lobe. The left hemithorax is clear. No pleural effusion. Cardiac silhouette is unchanged. XR/XR chest 2V IMPRESSION: Right middle lobe pneumonia. Follow-up until resolution is advised. External Record Review External record reviewed: Office record, Outpatient record, Prior outpatient labs and Prior outpatient radiology Prescription Management I considered prescription management with: Pain Medication and Antibiotic Chronic Conditions Patient?s care impacted by: Hypertension Critical Care Time Critical Care Time Critical Care Time: No Discharge Plan Discharge Clinical Impression: RML pneumonia Qualifiers: Pneumonia type: due to unspecified organism Qualified Code(s): J18.9 - Pneumonia, unspecified organism Patient Disposition: Home, Self-Care Instructions: Community Acquired Pneumonia (DC) Additional Instructions: Your x-ray showed a pneumonia in the right middle lobe of your lung. Your lab work was unremarkable. Your blood pressure was elevated in the emergency department, take her blood pressure medications as prescribed and follow up with her primary care doctor. Take the prescribed antibiotics as directed, complete the entire course and do not miss any doses If you develop new or worsening symptoms call 911 or come back to the ER for further evaluation. Prescriptions: New amoxicillin-pot clavulanate 875-125 mg tablet 1 tab PO BID Qty: 14 0RF azithromycin [Zithromax Z-Jorge] 250 mg tablet See Rx Instructions PO .COMPLEX Qty: 6 0RF Rx Instructions: take 500 mg today (day 1), then 250 mg for 4 days (days 2-5) prednisone 20 mg tablet 40 mg PO DAILY Qty: 10 0RF No Action cyanocobalamin (vitamin B-12) 1,000 mcg/mL solution 1,000 mcg IM QMONTH carisoprodol 350 mg tablet 350 mg PO BID PRN (Reason: low back pain) tramadol 50 mg tablet 50 mg PO TID-QID clonazepam 0.5 mg tablet 0.5 mg PO BID PRN (Reason: anxiety) carvedilol 12.5 mg tablet 12.5 mg PO BID Qty: 30 3RF Rx Instructions: must administer with a meal/food Print Language: Latvian
[2023-11-11 12:05] VITALS: BP 153/97; PULSE 88; RESP 19; TEMP 38.2; O2SAT 97
== END 2023-11-11 12:06 | disposition home or self-care (01) ==
PROVIDERS: Emergency Provider Emergency Medicine; PCP Internal Medicine
DX: J18.9 Pneumonia, unspecified organism (principal); R50.9 Fever, unspecified; R06.02 Shortness of breath; R51.9 Headache, unspecified; M54.50 Low back pain, unspecified; R05.9 Cough, unspecified; Z11.52 Encounter for screening for COVID-19; Z20.822 Contact with and (suspected) exposure to COVID-19; Z79.899 Other long term (current) drug therapy
CPT/HCPCS: 0241U; 71046; 80048; 81003; 81025; 83880; 84484; 85025; 85610; 93005; 99283

== ENCOUNTER → 2023-11-11 09:28 | Outpatient (BNV) | payer OTHER, SELFPAY | PROVIDERS: PCP Internal Medicine; Visit Provider Internal Medicine Cardiovascular Disease | DX: R06.02 Shortness of breath (principal) | CPT/HCPCS: 93010 ==

== ENCOUNTER 2023-11-19 09:01 | Outpatient (REF) | payer OTHER, SELFPAY ==
[2023-11-19 10:04] LABS: Creatinine Urine 142.78 mg/dL; Protein/Creatinine Ratio, Ur 0.06 (<0.2); Total Protein Urine Random 9 mg/dL (<12)
[2023-11-19 10:04] LABS: Anion Gap 15 (12-20); Blood Urea Nitrogen 22 mg/dL (9-16); Carbon Dioxide 28 mmol/L (22-29); Chloride 103 mmol/L (96-108); Estimated Glomerular Filt Rate > 60; Potassium 4.1 mmol/L (3.3-5.1); Sodium 142 mmol/L (135-145)
[2023-11-19 10:24] LABS: TSH reflex Free T4 0.64 uIU/mL (0.32-4.0)
== END 2023-11-19 09:02 | disposition home or self-care (01) ==
LOC: HO.LAB 09:01
PROVIDERS: Visit Provider Internal Medicine Nephrology
DX: I10 Essential (primary) hypertension (principal); N17.9 Acute kidney failure, unspecified; R00.2 Palpitations
CPT/HCPCS: 36415; 80051; 82565; 82570; 84156; 84443; 84520

== ENCOUNTER 2023-12-04 10:41 | Outpatient (AMB) | payer OTHER, SELFPAY ==
--- NOTE | 2023-12-04 10:49 | HO.NEPHOV ---
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 She has been experiencing intermittent diarrhea, aching joints, and headaches which she attributed to the rosuvastatin that she was started on about 5 months ago due to severely elevated triglyceride levels >1100. She states she tried cutting the dose down to 20 mg daily but continued to experience symptoms so she discontinued the medication about 1 week ago prior to arrival to the ER. She also had cloudy urine with decreased urine output for the last several days. She denied any fevers, chills, congestion, melena, hematochezia, dyspnea, chest pain, lightheadedness. She reports only occasional alcohol use and denies any current or prior history of drug use. Her serum creatinine was 4.14 at presentation from a baseline 0.7. Her AST was 2881, ALT 522, alkaline phosphatase 259. She was negative for COVID-19 and influenza. Her Chest x-ray was unremarkable. CT abdomen/pelvis shows fatty liver and normal-appearing gallbladder. She was admitted for further management. Her JOSETTE was thought to be related to ATN at that time. Her renal functions improved with supportive care and she did not need any renal replacement. She feels improved and is back to work. She does not have any chest pain, shortness of breath, paroxysmal nocturnal dyspnea, orthopnea, pedal edema, hematuria or orthostatic symptoms. Her serum creatinine has improved to baseline. She feels shaky in the first hour after Nifedipine. She had a 24 hour BPM which showed sub optimally controlled BP and her medications has been adjusted. [facility] Medical History (Updated 11/12/23 @ 00:00 by Background Daemon) Cystocele with rectocele Chronic low back pain Hypertriglyceridemia Hyperlipidemia HTN (hypertension) Surgical History History of hernia repair History of back surgery Family History Father A-fib Social History Household Members: Spouse Housing: Apartment Do you presently have visiting nurse or other home services: No Alcohol intake: never Patient Tobacco Use Status: Never used Tobacco service: No Physical Exam Const General: comfortable and no acute distress Orientation/consciousness: patient oriented x3 HEENT Head: Yes normocephalic Mouth: Normal oral and palatal mucosa present Eyes EOM: EOMs intact bilaterally Neck Neck: Yes supple Resp Auscultation: clear to auscultation bilaterally Cardio Jugular venous distension: no JVD Rate: regular rate GI Palpation (GI): Soft to palpation Auscultation: normal bowel sounds General: Yes no CVA tenderness Back/Spine/Pelvis Back: no CVA tenderness Skin General skin exam: no rashes or lesions noted Neuro General: patient oriented x3 and moves all extremities Extrem General: Yes no pedal edema Results Reviewed Nephrology Results: Hgb 11.6 g/dl (12.0-16.0) L 11/11/23 WBC 6.4 X10*3/uL (4.8-10.8) 11/11/23 Plt Count 221 X10*3/uL (160-400) 11/11/23 Sodium 142 mmol/L (135-145) 11/19/23 Potassium 4.1 mmol/L (3.3-5.1) 11/19/23 Chloride 103 mmol/L (96-108) 11/19/23 Carbon Dioxide 28 mmol/L (22-29) 11/19/23 BUN 22 mg/dL (9-16) H 11/19/23 Creatinine 0.74 mg/dL (0.5-1.4) 11/19/23 Calcium 9.6 mg/dL (8.4-10.2) 11/11/23 Urine Protein Trace mg/dL (Neg-Trace) 11/11/23 Urine Creatinine 142.78 mg/dL 11/19/23 Protein/Creatinin Ratio 0.06 (<0.2) 11/19/23 Assessment & Plan Assessment & Plan (1) HTN (hypertension): Code(s): I10 - Essential (primary) hypertension Category: Medical Qualifiers: Hypertension type: primary hypertension Qualified Code(s): I10 - Essential (primary) hypertension Plan JOSETTE likely due to tubular injury- resolved W/U has been negative to date No obstruction by imaging Urine output very good; No proteinuria Blood pressure at goal on NIfedipine but had edema and tachycardia- D/Juan Nifedipine Had Ordered Thyroid functions @ last visit- TSH OK ; C/W Carvedilol 6.25 mg AM and 12.5 mg at night May consider adding KATLIN inhibitors/ARB in the future; OK to have SI joint injection C/W current management for now; all questions answered. Follow-up given. Orders: Orders Creatinine Today I10 - Essential (primary) hypertension Blood Urea Nitrogen Today I10 - Essential (primary) hypertension Electrolytes Today I10 - Essential (primary) hypertension Coding Level of Care Code Est Pt Level 4 (52831) Diagnoses Primary hypertension I10 Hypertension type: primary hypertension
[2023-12-04 10:54] VITALS: BP 130/80; PULSE 73; O2SAT 96; BMI 24.3
== END 2023-12-04 11:12 | disposition home or self-care (01) ==
PROVIDERS: PCP Internal Medicine; Visit Provider Internal Medicine Nephrology
DX: I10 Essential (primary) hypertension (principal)
CPT/HCPCS: 99214

== ENCOUNTER → 2023-12-04 10:41 | Outpatient (BNVA) | payer OTHER, SELFPAY | PROVIDERS: PCP Internal Medicine; Visit Provider Internal Medicine Nephrology | DX: I10 Essential (primary) hypertension (principal) | CPT/HCPCS: 99212 ==

== ENCOUNTER 2024-06-30 09:05 | Outpatient (REF) | payer OTHER, SELFPAY ==
[2024-06-30 11:40] LABS: Anion Gap 11 (12-20); Blood Urea Nitrogen 16 mg/dL (9-16); Carbon Dioxide 28 mmol/L (22-29); Chloride 106 mmol/L (96-108); Estimated Glomerular Filt Rate > 60; Potassium 4.4 mmol/L (3.3-5.1); Sodium 141 mmol/L (135-145)
== END 2024-06-30 09:06 | disposition home or self-care (01) ==
LOC: HO.LAB 09:05
PROVIDERS: PCP Internal Medicine; Referring Provider Internal Medicine; Visit Provider Internal Medicine Nephrology
DX: I10 Essential (primary) hypertension (principal)
CPT/HCPCS: 36415; 80051; 82565; 84520

== ENCOUNTER 2024-07-03 09:27 | Outpatient (AMB) | payer OTHER, SELFPAY ==
--- NOTE | 2024-07-03 09:43 | HO.NEPHOV ---
Vital Signs 07/03/24 09:47 Height 5 ft Weight 120 lb 2 oz BMI 23.5 BP 100/60 Blood Pressure Location Rt brachial Position Sitting Pulse 68 Pulse Source Pulse Oximeter Pulse Oximetry (%) 97 Oxygen Delivery Method Room Air Intake Visit Reasons: CKD/ 6 MO FU/ Conf Digital Content Specialist Required: No Accompanied by: Self / Same As Patient Allergies ibuprofen [From Motrin] Allergy (Verified 07/03/24 09:47) Unknown morphine Adverse Reaction (Verified 07/03/24 09:47) Itching HPI Comments Details: 58-year-old female with history of hypertension was seen in follow up. She has H/O JOSETTE but did not need HD. Her renal functions are back to baseline. She does not have any chest pain, shortness of breath, paroxysmal nocturnal dyspnea, orthopnea, pedal edema, hematuria or orthostatic symptoms. Her BP is well controlled on current medication regimen. She takes NSAID's PRN. [facility] Medical History (Updated 11/12/23 @ 00:00 by Drew Castellanos) Cystocele with rectocele Chronic low back pain Hypertriglyceridemia Hyperlipidemia HTN (hypertension) Surgical History History of hernia repair History of back surgery Family History Father A-fib Social History Household Members: Spouse Housing: Apartment Do you presently have visiting nurse or other home services: No Alcohol intake: never Patient Tobacco Use Status: Never used Tobacco service: No Review of Systems Const All systems reviewed & are unremarkable except as noted in HPI and below Physical Exam Vital Signs: Last Vital Signs Pulse 68 07/03/24 09:47 BP 100/60 07/03/24 09:47 Pulse Ox 97 07/03/24 09:47 Oxygen Delivery Method Room Air 07/03/24 09:47 BMI result Body Mass Index 23.5 Const General: comfortable and no acute distress Orientation/consciousness: patient oriented x3 HEENT Head: Yes normocephalic Mouth: Normal oral and palatal mucosa present Eyes EOM: EOMs intact bilaterally Neck Neck: Yes supple Resp Auscultation: clear to auscultation bilaterally Cardio Jugular venous distension: no JVD Rate: regular rate GI Palpation (GI): Soft to palpation Auscultation: normal bowel sounds General: Yes no CVA tenderness Back/Spine/Pelvis Back: no CVA tenderness Skin General skin exam: no rashes or lesions noted Neuro General: patient oriented x3 and moves all extremities Extrem General: Yes no pedal edema Results Reviewed Nephrology Results: Sodium 141 mmol/L (135-145) 06/30/24 Potassium 4.4 mmol/L (3.3-5.1) 06/30/24 Chloride 106 mmol/L (96-108) 06/30/24 Carbon Dioxide 28 mmol/L (22-29) 06/30/24 BUN 16 mg/dL (9-16) 06/30/24 Creatinine 0.70 mg/dL (0.5-1.4) 06/30/24 Assessment & Plan Assessment & Plan (1) HTN (hypertension): Code(s): I10 - Essential (primary) hypertension Category: Medical Qualifiers: Hypertension type: primary hypertension Qualified Code(s): I10 - Essential (primary) hypertension Plan H/O JOSETTE likely due to tubular injury- resolved proteinuria Blood pressure was at goal on NIfedipine but had edema and tachycardia- D/Juan Nifedipine TSH OK ; C/W Carvedilol 6.25 mg AM and 12.5 mg at night May consider adding KATLIN inhibitors/ARB in the future C/W current management for now Orders: Orders Protein Creatinine Ratio, Ur 1 Year I10 - Essential (primary) hypertension Creatinine 1 Year I10 - Essential (primary) hypertension Blood Urea Nitrogen 1 Year I10 - Essential (primary) hypertension Electrolytes 1 Year I10 - Essential (primary) hypertension Coding Level of Care Code Est Pt Level 4 (61111) Diagnoses Primary hypertension I10 Hypertension type: primary hypertension
[2024-07-03 09:47] VITALS: BP 100/60; PULSE 68; O2SAT 97; BMI 23.5
== END 2024-07-03 10:23 | disposition home or self-care (01) ==
PROVIDERS: PCP Internal Medicine; Visit Provider Internal Medicine Nephrology
DX: I10 Essential (primary) hypertension (principal)
CPT/HCPCS: 99214

== ENCOUNTER → 2024-07-03 09:27 | Outpatient (BNVA) | payer OTHER, SELFPAY | PROVIDERS: PCP Internal Medicine; Visit Provider Internal Medicine Nephrology | DX: I10 Essential (primary) hypertension (principal) | CPT/HCPCS: 99212 ==

== ENCOUNTER 2025-03-24 09:58 | Outpatient (AMB) | payer OTHER, SELFPAY ==
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
== END 2025-03-24 10:49 | disposition home or self-care (01) ==
LOC: HO.HSM 09:58
PROVIDERS: PCP Internal Medicine; Visit Provider Psychiatry & Neurology Neurology
DX: M54.50 Low back pain, unspecified (principal); G89.29 Other chronic pain
CPT/HCPCS: 99214

== ENCOUNTER → 2025-03-24 09:58 | Outpatient (BNVA) | payer OTHER, SELFPAY | PROVIDERS: PCP Internal Medicine; Visit Provider Psychiatry & Neurology Neurology | DX: M54.50 Low back pain, unspecified (principal); G89.29 Other chronic pain; G47.00 Insomnia, unspecified; F13.982 Sedative, hypnotic or anxiolytic use, unspecified with sedative, hypnotic or anxiolytic-induced sleep disorder | CPT/HCPCS: 99212 ==